=== PATIENT | male | born 1965 ===

== ENCOUNTER 2016-11-29 20:29 | Emergency (ER) | payer MEDICARE, MEDICAID | END 2016-11-30 09:14 | disposition home or self-care (01) | LOC: H.ER 20:29 | DX: F10.129 Alcohol abuse with intoxication, unspecified (principal) | CPT/HCPCS: 99281; G0480 ==

== ENCOUNTER 2016-11-30 18:38 | Observation (INO) | payer MEDICARE, MEDICAID ==
--- NOTE | 2016-11-30 18:49 | ED PDOC ---
HPI: Psych/Substance Abuse Time Seen by Provider: 11/30/16 18:47 Chief Complaint (Nursing): Alcohol Ingestion Chief Complaint (Provider): alcohol ingestion History Per: Patient (51 y/o male here with altered mentation noted today. Patient denies any etoh. ) Past Medical History Reviewed: Historical Data, Nursing Documentation, Vital Signs Vital Signs: Last Vital Signs Temp 98.7 F 11/30/16 18:40 Pulse 94 H 11/30/16 18:40 Resp 18 11/30/16 18:40 BP 138/72 11/30/16 18:40 Pulse Ox 98 11/30/16 18:40 - Medical History PMH: Bipolar Disorder, Gastritis, HTN, Seizures Denies: Diabetes, Hepatitis, HIV, Sexually Transmitted Disease - Surgical History Surgical History: Hernia Repair (b/l inguinal) - Family History Family History: States: Unknown Family Hx - Home Medications Home Medications: Ambulatory Orders Medication Instructions Recorded Amoxicillin/Potassium Clav 1 each PO BID #0 tablet 09/08/15 [Augmentin 875-125 Tablet] Calcium Carbonate/Vitamin D3 1 tab PO DAILY #0 tablet 09/08/15 [Calcium 600-Vit D3 200 Tablet] Carvedilol [Coreg] 25 mg PO Q8H #0 tab 09/08/15 Ferrous Sulfate [Ferosul] 325 mg PO DAILY #0 tablet 09/08/15 Folic Acid 2 mg PO DAILY #0 tab 09/08/15 Lisinopril [Zestril] 20 mg PO DAILY #0 tablet 09/08/15 Magnesium Oxide [Magox 400] 400 mg PO TID #0 tablet 09/08/15 Omeprazole [Prilosec] 20 mg PO DAILY #0 capsule. 09/08/15 QUEtiapine [SEROquel] 50 mg PO HS #0 tab 09/08/15 Sennosides [Senna] 1 tab PO HS #0 tablet 09/08/15 Thiamine [Vitamin B1 Tab] 100 mg PO DAILY #0 tab 09/08/15 Topiramate [Topamax] 50 mg PO BID #0 tab 09/08/15 amLODIPine [Norvasc] 5 mg PO DAILY #0 tab 09/08/15 levETIRAcetam [Keppra] 750 mg PO BID #0 tab 09/08/15 Unobtainable 08/07/16 - Allergies Allergies/Adverse Reactions: Allergies Allergy/AdvReac Type Severity Reaction Status Date / Time aspirin Allergy SHORTNESS Verified 02/02/16 01:01 OF BREATH ibuprofen [From Motrin] Allergy SHORTNESS Verified 02/02/16 01:01 OF BREATH Review of Systems ROS Statement: Except As Marked, All Systems Reviewed And Found Negative Physical Exam - Reviewed Nursing Documentation Reviewed: Yes Vital Signs Reviewed: Yes - Physical Exam Appears: Positive for: Well, Non-toxic, No Acute Distress (Appears intoxicated with slurred speech and etoh odor) Head Exam: Positive for: ATRAUMATIC, NORMAL INSPECTION, NORMOCEPHALIC Skin: Positive for: Normal Color, Warm, DRY Eye Exam: Positive for: EOMI, Normal appearance, PERRL ENT: Positive for: Normal ENT Inspection Neck: Positive for: Normal, Painless ROM Cardiovascular/Chest: Positive for: Regular Rate, Rhythm Respiratory: Positive for: CNT, Normal Breath Sounds Gastrointestinal/Abdominal: Positive for: Normal Exam, Bowel Sounds, Soft Back: Positive for: Normal Inspection Extremity: Positive for: Normal ROM Neurologic/Psych: Positive for: Alert, Oriented - ECG O2 Sat by Pulse Oximetry: 98 - Progress ED Course And Treament: Head CT: right frontal scalp hematoma noted; no intracranial abnormality ED OBSERVATION Date of observation admission: 11/30/16 Time of observation admission: 18:51 - Observation admission statement Patient is being placed in observation because:: Patient noted to have altered mentation. We will evaluate and observe for possible alcohol intoxication. - Goals of Observation Goals of observation are:: To evaluate cause of altered mentation. To manage and observe until clinical sobriety - Progress Note Progress Note: 11/30/16 18:52 Patient verbal and alert to self but not answering questions appropriately. Denies any alcohol intake initially. Easily agitated by simple questions. 11/30/16 21:49 11/30/2016 21:49 Patient progressively more alert. Noted to have swelling and deformity left hand and wrist. States he has had injury 7 days ago and believes he has fx. Physical exam: (+) ecchymosis along index of left hand and thumb with swelling; deformity noted radial aspect of distal wrist with incision noted old. 11/30/16 23:12 xry of hand:IMPRESSION: Osteopenia and degenerative change; old distal radial, ulnar and fifth metacarpal fractures, no acute fracture Thank you for allowing us to participate in the care of your patient. Dictated and Authenticated by: Marianne Art MD 11/30/2016 10:56 PM Eastern Time ([place] & [place]) xry of wrist: IMPRESSION: Osteopenia degenerative change; old fractures distal left radius, distal left ulna and fifth metacarpal, with sideplate and screw in the distal ulna Comparison with prior films suggested for more complete evaluation Thank you for allowing us to participate in the care of your patient. Dictated and Authenticated by: Marianne Art MD 11/30/2016 10:54 PM Eastern Time ([place] & [place]) Acetaminophen 975mg x dose for pain. Disposition - Clinical Impression Clinical Impression: Alcohol ingestion, Head injury, Hand contusion - Patient ED Disposition Is Patient to be Admitted: No - Disposition Disposition: Routine/Home Disposition Time: 23:16 Condition: FAIR
[2016-11-30 18:57] VITALS: BP 138/72; PULSE 94; RESP 18; TEMP 98.7; O2SAT 98
--- NOTE | 2016-11-30 21:00 | CT ---
EXAM: CT Head Without Intravenous Contrast CLINICAL HISTORY: 51 years old, male; Injury or trauma; Fall; Initial encounter; Concussion / head injury; Consciousness not specified; Additional info: Head injury/ ETOH TECHNIQUE: Axial computed tomography images of the head/brain without intravenous contrast. This CT exam was performed using one or more of the following dose reduction techniques: automated exposure control, adjustment of the mA and/or kV according to patient size, and/or use of iterative reconstruction technique. Coronal and sagittal reformatted images were created and reviewed. EXAM DATE/TIME: 11/30/2016 7:18 PM COMPARISON: CT - HEAD W/O CONTRAST 09/10/2015 1:03:51 AM FINDINGS: Brain: There is dilatation of sulci gyri and ventricles. There is no midline shift. There is decreased attenuation in periventricular white matter. There is right frontal encephalomalacia, unchanged. There is a small subacute right frontal subdural hygroma, unchanged. There are no focal masses. There are no acute hemorrhages. Lorenzo-white differentiation is visualized. Ventricles: See above Bones: Cranial vault is intact. Soft tissues: There is right frontal and parietal scalp swelling. Sinuses: There is no acute sinusitis. Ears and mastoids: Middle ears and mastoids are unremarkable. Orbits: Orbital contents are unremarkable. IMPRESSION: No acute intracranial abnormality, no acute intracranial hemorrhage; right frontal scalp hematoma
--- NOTE | 2016-11-30 22:54 | RAD ---
EXAM: XR Left Wrist Complete, 3 or More Views CLINICAL HISTORY: 51 years old, male; Injury or trauma; Fall; Initial encounter; Blunt trauma (contusions or hematomas; Wrist; Left; Prior surgery; Surgery date: 6+ months; Surgery type: Fracture repair; Additional info: Wrist injury TECHNIQUE: Frontal, lateral and oblique views of the left wrist. EXAM DATE/TIME: 11/30/2016 9:48 PM COMPARISON: There are no prior studies for comparison. FINDINGS: Bones/joints: Bony structures are diffusely osteopenic. There is an old healed fracture of the fifth metacarpal with residual posttraumatic deformity. There is an old distal left ulnar fracture with sideplate and screws. There is an old healed distal radial diaphyseal fracture. There is periosteal reaction in the distal radius and normal. There is narrowing of the radiocarpal joint space. No acute fractures are visualized. Soft tissues: There is soft tissue swelling in the distal left forearm IMPRESSION: Osteopenia degenerative change; old fractures distal left radius, distal left ulna and fifth metacarpal, with sideplate and screw in the distal ulna Comparison with prior films suggested for more complete evaluation
--- NOTE | 2016-11-30 22:57 | RAD ---
EXAM: XR Left Hand Complete, 3 or More Views CLINICAL HISTORY: 51 years old, male; Injury or trauma; Fall; Initial encounter; Blunt trauma (contusions or hematomas; Hand; Left; Additional info: Hand injury TECHNIQUE: Frontal, lateral and oblique views of the left hand. EXAM DATE/TIME: 11/30/2016 9:47 PM COMPARISON: There are no prior studies for comparison. FINDINGS: Bones/joints: Bony structures are diffusely osteopenic. There are old fractures of the distal left radius and ulna. There is a plate and screws in the distal ulna. There is narrowing of the radiocarpal joint space. There is an old healed fracture of the fifth metacarpal. No acute fractures are visualized. There is narrowing of the interphalangeal joints. Soft tissues: see above IMPRESSION: Osteopenia and degenerative change; old distal radial, ulnar and fifth metacarpal fractures, no acute fracture
== END 2016-11-30 23:16 | disposition home or self-care (01) ==
LOC: H.ER 18:38 → H.EROBSV 18:50
PROVIDERS: ADMIT Emergency Medicine; ATTEND Emergency Medicine
DX: F10.129 Alcohol abuse with intoxication, unspecified (principal); Y90.8 Blood alcohol level of 240 mg/100 ml or more; F31.9 Bipolar disorder, unspecified; I10 Essential (primary) hypertension; K29.70 Gastritis, unspecified, without bleeding; R56.9 Unspecified convulsions; S60.212A Contusion of left wrist, initial encounter; M85.89 Other specified disorders of bone density and structure, multiple sites; X58.XXXA Exposure to other specified factors, initial encounter; Z88.6 Allergy status to analgesic agent; Y93.9 Activity, unspecified
CPT/HCPCS: 36415; 70450; 73110; 73130; 82948; 99283; G0378; G0480

== ENCOUNTER 2016-12-14 16:36 | Emergency (ER) | payer MEDICARE, MEDICAID ==
[2016-12-14 16:40] VITALS: BP 116/70; RESP 19; TEMP 98.1; O2SAT 95
[2016-12-14 17:12] VITALS: PULSE 101
--- NOTE | 2016-12-14 20:47 | ED PDOC ---
HPI: Psych/Substance Abuse Time Seen by Provider: 12/14/16 17:13 Chief Complaint (Nursing): Seizure Chief Complaint (Provider): intoxication Additional Complaint(s): 51yo M in ed For eval of intoxication nought to ED by EMS-slurred speech and unstable gait. Past Medical History Reviewed: Historical Data, Nursing Documentation, Vital Signs Vital Signs: Last Vital Signs Temp 98.1 F 12/14/16 16:36 Pulse 101 H 12/14/16 17:12 Resp 19 12/14/16 16:36 BP 116/70 12/14/16 16:36 Pulse Ox 95 12/14/16 16:36 - Medical History PMH: Bipolar Disorder, Gastritis, HTN, Seizures Denies: Diabetes, Hepatitis, HIV, Chronic Kidney Disease, Sexually Transmitted Disease - Surgical History Surgical History: Hernia Repair (b/l inguinal) - Family History Family History: States: Unknown Family Hx - Home Medications Home Medications: Ambulatory Orders Medication Instructions Recorded Amoxicillin/Potassium Clav 1 each PO BID #0 tablet 09/08/15 [Augmentin 875-125 Tablet] Calcium Carbonate/Vitamin D3 1 tab PO DAILY #0 tablet 09/08/15 [Calcium 600-Vit D3 200 Tablet] Carvedilol [Coreg] 25 mg PO Q8H #0 tab 09/08/15 Ferrous Sulfate [Ferosul] 325 mg PO DAILY #0 tablet 09/08/15 Folic Acid 2 mg PO DAILY #0 tab 09/08/15 Lisinopril [Zestril] 20 mg PO DAILY #0 tablet 09/08/15 Magnesium Oxide [Magox 400] 400 mg PO TID #0 tablet 09/08/15 Omeprazole [Prilosec] 20 mg PO DAILY #0 capsule. 09/08/15 QUEtiapine [SEROquel] 50 mg PO HS #0 tab 09/08/15 Sennosides [Senna] 1 tab PO HS #0 tablet 09/08/15 Thiamine [Vitamin B1 Tab] 100 mg PO DAILY #0 tab 09/08/15 Topiramate [Topamax] 50 mg PO BID #0 tab 09/08/15 amLODIPine [Norvasc] 5 mg PO DAILY #0 tab 09/08/15 levETIRAcetam [Keppra] 750 mg PO BID #0 tab 09/08/15 Unobtainable 08/07/16 - Allergies Allergies/Adverse Reactions: Allergies Allergy/AdvReac Type Severity Reaction Status Date / Time aspirin Allergy SHORTNESS Verified 02/02/16 01:01 OF BREATH ibuprofen [From Motrin] Allergy SHORTNESS Verified 02/02/16 01:01 OF BREATH Review of Systems ROS Statement: Except As Marked, All Systems Reviewed And Found Negative Constitutional: Negative for: Fever Physical Exam - Reviewed Nursing Documentation Reviewed: Yes Vital Signs Reviewed: Yes - Physical Exam Appears: Positive for: Well, Non-toxic, No Acute Distress Skin: Positive for: Normal Color, Warm, DRY Cardiovascular/Chest: Positive for: Regular Rate, Rhythm Respiratory: Positive for: CNT, Normal Breath Sounds Neurologic/Psych: Positive for: Alert, Oriented, Gait (unstable, slurred speech. ) - ECG O2 Sat by Pulse Oximetry: 95 - Progress ED Course And Treament: Pt in ED until clinically sober and d/c took taxi home. Medical Decision Making Medical Decision Making: stable for d/c Disposition - Clinical Impression Clinical Impression: Alcohol abuse - Patient ED Disposition Is Patient to be Admitted: No Counseled Patient/Family Regarding: Need For Followup - Disposition Disposition: Routine/Home Disposition Time: 20:51 Condition: STABLE
--- NOTE | 2016-12-15 23:38 | CARD ---
APPROVED REPORT EKG Measurement Heart [id number] <Conclusion> Sinus tachycardia Otherwise normal ECG
== END 2016-12-14 20:57 | disposition home or self-care (01) ==
LOC: H.ER 16:36
DX: F10.10 Alcohol abuse, uncomplicated (principal); F31.9 Bipolar disorder, unspecified; I10 Essential (primary) hypertension
CPT/HCPCS: 82948; 93005; 99283; G0480

== ENCOUNTER 2016-12-25 15:49 | Observation (INO) | payer MEDICARE, MEDICAID ==
--- NOTE | 2016-12-25 16:33 | ED PDOC ---
HPI: Psych/Substance Abuse Time Seen by Provider: 12/25/16 15:52 Chief Complaint (Nursing): Alcohol Ingestion Chief Complaint (Provider): Intoxication History Per: Patient History/Exam Limitations: intoxication Additional Complaint(s): Angel Sol is a 51 y/o male presenting to the ER on 12/25/2016 with possible alcohol intoxication. History is limited due to patient's likely state of intoxication. Patient reports he was drinking alcohol yesterday but not today. He states he is unsure if he suffered a seizure after drinking. Patient was able to ambulate to the ED for evaluation. ROS is unobtainable due to inability to answer questions. Past Medical History Reviewed: Historical Data, Nursing Documentation, Vital Signs Vital Signs: Last Vital Signs Temp 98.0 F 12/25/16 15:52 Pulse 111 H 12/25/16 15:52 Resp 16 12/25/16 15:52 BP 135/91 H 12/25/16 15:52 Pulse Ox 100 12/25/16 15:52 - Medical History PMH: Bipolar Disorder, Gastritis, HTN, Seizures Denies: Diabetes, Hepatitis, HIV, Chronic Kidney Disease, Sexually Transmitted Disease - Surgical History Surgical History: Hernia Repair (b/l inguinal) - Family History Family History: States: Unknown Family Hx - Social History Current smoker - smoking cessation education provided: No Alcohol: Occasional Drugs: Denies - Home Medications Home Medications: Ambulatory Orders Medication Instructions Recorded Amoxicillin/Potassium Clav 1 each PO BID #0 tablet 09/08/15 [Augmentin 875-125 Tablet] Calcium Carbonate/Vitamin D3 1 tab PO DAILY #0 tablet 09/08/15 [Calcium 600-Vit D3 200 Tablet] Carvedilol [Coreg] 25 mg PO Q8H #0 tab 09/08/15 Ferrous Sulfate [Ferosul] 325 mg PO DAILY #0 tablet 09/08/15 Folic Acid 2 mg PO DAILY #0 tab 09/08/15 Lisinopril [Zestril] 20 mg PO DAILY #0 tablet 09/08/15 Magnesium Oxide [Magox 400] 400 mg PO TID #0 tablet 09/08/15 Omeprazole [Prilosec] 20 mg PO DAILY #0 capsule. 09/08/15 QUEtiapine [SEROquel] 50 mg PO HS #0 tab 09/08/15 Sennosides [Senna] 1 tab PO HS #0 tablet 09/08/15 Thiamine [Vitamin B1 Tab] 100 mg PO DAILY #0 tab 09/08/15 Topiramate [Topamax] 50 mg PO BID #0 tab 09/08/15 amLODIPine [Norvasc] 5 mg PO DAILY #0 tab 09/08/15 levETIRAcetam [Keppra] 750 mg PO BID #0 tab 09/08/15 Unobtainable 08/07/16 - Allergies Allergies/Adverse Reactions: Allergies Allergy/AdvReac Type Severity Reaction Status Date / Time aspirin Allergy SHORTNESS Verified 02/02/16 01:01 OF BREATH ibuprofen [From Motrin] Allergy SHORTNESS Verified 02/02/16 01:01 OF BREATH Review of Systems Review Of Systems: ROS cannot be obtained secondary to pt's inabilty to answer questions. Physical Exam - Reviewed Nursing Documentation Reviewed: Yes Vital Signs Reviewed: Yes - Physical Exam Appears: Positive for: No Acute Distress (no gross trauma ). Negative for: Non- toxic (patient appears to have alcohol on his breath. poor hygeine noted.) Head Exam: Positive for: ATRAUMATIC, NORMOCEPHALIC Skin: Positive for: Normal Color. Negative for: Rash Eye Exam: Positive for: Normal appearance Neck: Positive for: Normal, Painless ROM, Supple Cardiovascular/Chest: Positive for: Regular Rate, Rhythm. Negative for: Murmur Respiratory: Positive for: Normal Breath Sounds. Negative for: Respiratory Distress Gastrointestinal/Abdominal: Positive for: Normal Exam, Soft. Negative for: Tenderness Extremity: Positive for: Normal ROM. Negative for: Deformity, Swelling Neurologic/Psych: Positive for: Alert, Oriented, Other (no tremors ). Negative for: Motor/Sensory Deficits - Laboratory Results Result Diagrams: 12/25/16 16:45 - ECG O2 Sat by Pulse Oximetry: 100 Medical Decision Making Medical Decision Makin:52 Initial Impression- Alcohol Intoxication Initial Plan- * Alcohol Serum * Beside Glucose check * BMP Documented by Kennedy Tovar, acting as a scribe for Bo Herrera, DO All medical record entries made by the Scribe were at my direction and personally dictated by me. I have reviewed the chart and agree that the record accurately reflects my personal performance of the history, physical exam, medical decision making, and the department course for this patient. I have also personally directed, reviewed, and agree with the discharge instructions and disposition. ED OBSERVATION Date of observation admission: 12/25/16 Time of observation admission: 18:47 - Observation admission statement Patient is being placed in observation because:: patient is clinically intoxicated - Goals of Observation Goals of observation are:: Clinical sobriety - Progress Note Progress Note: 12/25/16 20:07 Patient is sleeping. Vitals are stable. 12/25/16 20:52 Patient is awake, alert, and requesting food at the ED front office attendant. Vitals and condition are stable for discharge from observation. Disposition - Clinical Impression Clinical Impression: Alcohol abuse with alcohol-induced disorder - Patient ED Disposition Is Patient to be Admitted: No Counseled Patient/Family Regarding: Studies Performed, Diagnosis, Need For Followup - Disposition Disposition: Routine/Home Disposition Time: 18:47 Condition: STABLE
[2016-12-25 17:59] LABS: BLOOD UREA NITROGEN 14 mg/dl (9-20); CALCIUM 7.7 mg/dL (8.4-10.2); GFR AFRICAN-AMERICAN > 60; GFR NON-AFRICAN AMERICAN > 60
[2016-12-25 19:19] VITALS: BP 133/85; PULSE 84; RESP 18; TEMP 97.2
[2016-12-25 20:08] VITALS: O2SAT 100
== END 2016-12-25 20:53 | disposition home or self-care (01) ==
LOC: H.ER 15:49 → H.EROBSV 18:47
PROVIDERS: ADMIT Emergency Medicine; ATTEND Emergency Medicine
DX: F10.129 Alcohol abuse with intoxication, unspecified (principal); Y90.8 Blood alcohol level of 240 mg/100 ml or more; F31.9 Bipolar disorder, unspecified; I10 Essential (primary) hypertension; K29.70 Gastritis, unspecified, without bleeding; R56.9 Unspecified convulsions; Z79.899 Other long term (current) drug therapy
CPT/HCPCS: 80048; 82948; 99283; G0378; G0480

== ENCOUNTER 2016-12-28 15:40 | Observation (INO) | payer MEDICARE, MEDICAID ==
[2016-12-28 15:47] VITALS: TEMP 98
[2016-12-28] MEDS ORDERED: Sodium Chloride 0.9% 1,000 ML IV STA (15:58)
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
[2016-12-28 16:28] LABS: BASO # 0.1 K/uL (0.0-0.2); BASO % 2.1 % (0.0-2.0); EOS # 0.2 K/uL (0.0-0.7); EOS % 3.8 % (0.0-4.0); HEMATOCRIT 32.7 % (35.0-51.0); LYMPH # 1.7 K/uL (1.0-4.3); LYMPH % 25.9 % (20.0-40.0); MEAN CELL VOLUME 101.2 fl (80.0-94.0); MEAN CORPUSCULAR HGB CONC 32.6 g/dL (33.0-37.0); MEAN PLATELET VOLUME 11.2 fl (7.2-11.7); MONO # 1.5 K/uL (0.0-0.8); MONO % 23.6 % (0.0-10.0); NEUT # 2.9 K/uL (1.8-7.0); NEUT % 44.6 % (50.0-75.0); NRBC % 0.4 % (0.0-0.0); PLATELET COUNT 114 K/uL (130-400); RED CELL DISTRIBUTION WIDTH 15.3 % (11.5-14.5); WHITE BLOOD COUNT 6.5 K/uL (4.8-10.8)
[2016-12-28 17:01] LABS: ALKALINE PHOSPHATASE 220 U/L (38-126); ALT/SGPT 53 U/L (21-72); AST/SGOT 223 U/L (17-59); BILIRUBIN,TOTAL 1.4 mg/dl (0.2-1.3); BLOOD UREA NITROGEN 15 mg/dl (9-20); CARBON DIOXIDE 20 mmol/L (22-30); CHLORIDE 109 mmol/L (98-107); GFR AFRICAN-AMERICAN > 60; POTASSIUM 4.5 MMOL/L (3.6-5.0); SODIUM 143 mmol/l (132-148)
[2016-12-28 17:06] LABS: BASOPHIL 2 % (0-2); EOSINOPHIL 4 % (0-7); NEUTROPHIL 49 % (42-75); TOTAL CELLS COUNTED 100
[2016-12-28 17:09] LABS: LARGE PLATELETS PRESENT
[2016-12-28 17:30] LABS: ALCOHOL SERUM 339 mg/dl (0-10)
[2016-12-28 17:38] LABS: ALB/GLOB RATIO 0.8 (1.0-2.1); GLUCOSE,RANDOM 91 mg/dL (75-110); TOTAL PROTEIN 7.7 G/DL (6.3-8.2)
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
[2016-12-28 20:57] VITALS: BP 148/88; PULSE 89; RESP 18
[2016-12-28 21:11] VITALS: O2SAT 93
--- NOTE | 2016-12-31 18:37 | CARD ---
APPROVED REPORT EKG Measurement Heart [id number] <Conclusion> Normal sinus rhythm Prolonged QT Abnormal ECG
== END 2016-12-28 20:38 | disposition home or self-care (01) ==
LOC: H.ER 15:40 → H.EROBSV 18:09
PROVIDERS: ADMIT Emergency Medicine; ATTEND Emergency Medicine
DX: G40.909 Epilepsy, unspecified, not intractable, without status epilepticus (principal); F10.129 Alcohol abuse with intoxication, unspecified; Y90.8 Blood alcohol level of 240 mg/100 ml or more; S05.12XA Contusion of eyeball and orbital tissues, left eye, initial encounter; F31.9 Bipolar disorder, unspecified; I10 Essential (primary) hypertension; K29.70 Gastritis, unspecified, without bleeding; F17.200 Nicotine dependence, unspecified, uncomplicated; Z88.6 Allergy status to analgesic agent; Y04.2XXA Assault by strike against or bumped into by another person, initial encounter; Y92.480 Sidewalk as the place of occurrence of the external cause
CPT/HCPCS: 70450; 70486; 80053; 80184; 80299; 85025; 96360; 99285; G0378; G0480; J7040

== ENCOUNTER 2017-01-11 17:57 | Emergency (ER) | payer MEDICARE, MEDICAID ==
[2017-01-11 18:41] LABS: BASO # 0.3 K/uL (0.0-0.2); BASO % 4.4 % (0.0-2.0); EOS # 0.1 K/uL (0.0-0.7); EOS % 2.2 % (0.0-4.0); LYMPH # 1.6 K/uL (1.0-4.3); LYMPH % 22.7 % (20.0-40.0); MEAN CELL VOLUME 102.7 fl (80.0-94.0); MEAN CORPUSCULAR HEMOGLOBIN 33.5 pg (27.0-31.0); MEAN CORPUSCULAR HGB CONC 32.6 g/dL (33.0-37.0); MEAN PLATELET VOLUME 10.3 fl (7.2-11.7); MONO # 1.9 K/uL (0.0-0.8); MONO % 28.4 % (0.0-10.0); NEUT # 2.9 K/uL (1.8-7.0); NEUT % 42.3 % (50.0-75.0); NRBC % 0.1 % (0.0-0.0); PLATELET COUNT 208 K/uL (130-400); RBC 2.98 Mil/uL (4.40-5.90); RED CELL DISTRIBUTION WIDTH 15.9 % (11.5-14.5); WHITE BLOOD COUNT 6.9 K/uL (4.8-10.8)
[2017-01-11 18:51] LABS: ALB/GLOB RATIO 0.8 (1.0-2.1); ALBUMIN 3.5 g/dL (3.5-5.0); ALT/SGPT 49 U/L (21-72); AST/SGOT 109 U/L (17-59); BLOOD UREA NITROGEN 21 mg/dl (9-20); GFR AFRICAN-AMERICAN > 60; GFR NON-AFRICAN AMERICAN > 60
--- NOTE | 2017-01-11 18:56 | ED PDOC ---
HPI: General Adult Time Seen by Provider: 01/11/17 18:02 Chief Complaint (Nursing): Seizure Chief Complaint (Provider): Seizure History Per: Patient History/Exam Limitations: no limitations Onset/Duration Of Symptoms: Hrs Have you had recent travel within the past 21 days to any of the following countries: [place], [place], [place] or [place]?: No Additional Complaint(s): The patient is a 51yo male, past medical history of seizures, presents to the ED for evaluation s/p having an "epileptic seizure" at home. Patient states the seizure was unwitnessed and that he "woke up rolling on the floor". He denies falls, head injury, urinary incontinence. He also denies drinking alcohol today. Patient states he takes Keppra and Phenobarbitol for his symptoms but has not taken the phenobarbitol for the past 5 days because he ran out of his medications. He denies any other medical complains. PCP: Dr. Jose Cruz Vila Past Medical History Reviewed: Historical Data, Nursing Documentation, Vital Signs Vital Signs: Last Vital Signs Temp 98.1 F 01/11/17 20:42 Pulse 96 H 01/11/17 20:42 Resp 18 01/11/17 20:42 BP 146/90 01/11/17 20:42 Pulse Ox 95 01/12/17 05:28 - Medical History PMH: Bipolar Disorder, Gastritis, HTN, Seizures Denies: Diabetes, Hepatitis, HIV, Chronic Kidney Disease, Sexually Transmitted Disease - Surgical History Surgical History: Hernia Repair (b/l inguinal) - Family History Family History: States: Unknown Family Hx - Home Medications Home Medications: Ambulatory Orders Medication Instructions Recorded Amoxicillin/Potassium Clav 1 each PO BID #0 tablet 09/08/15 [Augmentin 875-125 Tablet] Calcium Carbonate/Vitamin D3 1 tab PO DAILY #0 tablet 09/08/15 [Calcium 600-Vit D3 200 Tablet] Carvedilol [Coreg] 25 mg PO Q8H #0 tab 09/08/15 Ferrous Sulfate [Ferosul] 325 mg PO DAILY #0 tablet 09/08/15 Folic Acid 2 mg PO DAILY #0 tab 09/08/15 Lisinopril [Zestril] 20 mg PO DAILY #0 tablet 09/08/15 Magnesium Oxide [Magox 400] 400 mg PO TID #0 tablet 04/09/16 Omeprazole [Prilosec] 20 mg PO DAILY #0 capsule. 09/08/15 QUEtiapine [SEROquel] 50 mg PO HS #0 tab 09/08/15 Sennosides [Senna] 1 tab PO HS #0 tablet 09/08/15 Thiamine [Vitamin B1 Tab] 100 mg PO DAILY #0 tab 09/08/15 Topiramate [Topamax] 50 mg PO BID #0 tab 09/08/15 amLODIPine [Norvasc] 5 mg PO DAILY #0 tab 09/08/15 levETIRAcetam [Keppra] 750 mg PO BID #0 tab 09/08/15 Unobtainable 08/07/16 - Allergies Allergies/Adverse Reactions: Allergies Allergy/AdvReac Type Severity Reaction Status Date / Time aspirin Allergy SHORTNESS Verified 02/02/16 01:01 OF BREATH ibuprofen [From Motrin] Allergy SHORTNESS Verified 02/02/16 01:01 OF BREATH Review of Systems ROS Statement: Except As Marked, All Systems Reviewed And Found Negative Genitourinary Male: Negative for: Incontinence Neurological: Positive for: Seizures Physical Exam - Reviewed Nursing Documentation Reviewed: Yes Vital Signs Reviewed: Yes - Physical Exam Appears: Positive for: Non-toxic Head Exam: Positive for: ATRAUMATIC, NORMAL INSPECTION, NORMOCEPHALIC Skin: Positive for: Normal Color Eye Exam: Positive for: Normal appearance Neck: Positive for: Normal, Supple Cardiovascular/Chest: Positive for: Regular Rate, Rhythm Respiratory: Positive for: Normal Breath Sounds. Negative for: Respiratory Distress Neurologic/Psych: Positive for: Alert, Oriented. Negative for: Motor/Sensory Deficits - Laboratory Results Result Diagrams: 01/11/17 18:37 01/11/17 18:37 - ECG O2 Sat by Pulse Oximetry: 95 Medical Decision Making Medical Decision Making: Time: 1814 Impression: Seizure, patient has hx of epileptic seizures Plan: -- Labs -- EKG Reassess Scribe Attestation: Documented by Lizzette Bullock acting as a scribe for Francesca Frausto MD. Provider Attestation: All medical record entries made by the Scribe were at my direction and personally dictated by me. I have reviewed the chart and agree that the record accurately reflects my personal performance of the history, physical exam, medical decision making, and the department course for this patient. I have also personally directed, reviewed, and agree with the discharge instructions and disposition. Disposition - Clinical Impression Clinical Impression: Alcohol intoxication - Patient ED Disposition Is Patient to be Admitted: Transfer of Care - Disposition Referrals: [facility] [Outside] [facility] [Outside] Disposition: Transfer of Care Disposition Time: 19:00 Condition: IMPROVED Additional Instructions: follow up with your primary doctor in 1-2 days return to the ED with any worsening or concerning symptoms. Instructions: Alcohol Intoxication (ED), Anemia (ED) Forms: [employer] (Citizen Of [place]) Patient Signed Over To: Noy Fofana Handoff Comments: pending labs
--- NOTE | 2017-01-11 19:17 | ED PDOC ---
- Laboratory Results Result Diagrams: 01/11/17 18:37 01/11/17 18:37 - ECG O2 Sat by Pulse Oximetry: 95 Medical Decision Making Medical Decision Making: Receiving sign out: Patient signed out to me by Dr. Frausto at 1900 pending labs, re-evaluation. Scribe Attestation: Documented by Lizzette Bullock acting as a scribe for Noy Fofana MD. Provider Attestation: All medical record entries made by the Scribe were at my direction and personally dictated by me. I have reviewed the chart and agree that the record accurately reflects my personal performance of the history, physical exam, medical decision making, and the department course for this patient. I have also personally directed, reviewed, and agree with the discharge instructions and disposition. Disposition Counseled Patient/Family Regarding: Studies Performed, Diagnosis, Need For Followup - Clinical Impression Clinical Impression: Alcohol intoxication - POA Present On Arrival: None - Disposition Referrals: [facility] [Outside] [facility] [Outside] Disposition: Routine/Home Disposition Time: 20:00 Condition: IMPROVED Additional Instructions: follow up with your primary doctor in 1-2 days return to the ED with any worsening or concerning symptoms. Instructions: Alcohol Intoxication (ED), Anemia (ED) Forms: [employer] (Maldivian) Progress Note - Review of Symptoms Events since last encounter: Time: 2029 Patients lab results so no acute abnormalities; slight anemia noted and patient informed of such results. Instructed to follow up with PCP for further care. Patient is awake, alert and oriented x3 with steady gait; stable for discharge home.
[2017-01-11 19:44] LABS: BASOPHIL 5 % (0-2); EOSINOPHIL 3 % (0-7); LYMPHOCYTE 25 % (20-50); MONOCYTE 23 % (0-10); NEUTROPHIL 44 % (42-75); PLATELET ESTIMATE NORMAL (NORMAL); TOTAL CELLS COUNTED 100
[2017-01-11 19:45] LABS: ANISOCYTOSIS SLIGHT; POIKILOCYTOSIS SLIGHT
[2017-01-11 19:46] LABS: LARGE PLATELETS PRESENT
[2017-01-11 20:43] VITALS: BP 146/90; PULSE 96; RESP 18; TEMP 98.1
--- NOTE | 2017-01-11 21:47 | CARD ---
APPROVED REPORT EKG Measurement Heart [id number] <Conclusion> Normal sinus rhythm Normal ECG
[2017-01-12 05:27] VITALS: O2SAT 95
[2017-01-15 04:52] LABS: LEVETIRACETAM 1.8 mcg/mL
== END 2017-01-11 20:48 | disposition home or self-care (01) ==
LOC: H.ER 17:57
DX: F10.129 Alcohol abuse with intoxication, unspecified (principal); Y90.8 Blood alcohol level of 240 mg/100 ml or more; R56.9 Unspecified convulsions; I10 Essential (primary) hypertension
CPT/HCPCS: 80053; 80184; 80299; 82948; 85025; 93005; 99285; G0480

== ENCOUNTER 2017-02-03 22:28 | Emergency (ER) | payer MEDICARE, MEDICAID ==
--- NOTE | 2017-02-03 22:58 | ED PDOC ---
HPI: Seizure Time Seen by Provider: 02/03/17 22:50 Chief Complaint (Nursing): Seizure Chief Complaint (Provider): I had a seizire History Per: Patient, EMS History/Exam Limitations: no limitations Number Of Seizures: One Length Of Seizures (Duration): Unknown Quality Of Seizure: Generalized Associated Symptoms: denies: Injury As A Result Of Seizure Activity Additional Complaint(s): 51yo male hx epilepsy, also etoh abuse although denies drinking recently, states had seizure at [address], unknown duration. States takes keppra 1000mg BID but missed last several days. Denies chest, neck, shoulder, abdominal or back pain. Past Medical History Reviewed: Historical Data, Nursing Documentation, Vital Signs Vital Signs: Last Vital Signs Temp 98.5 F 02/03/17 22:30 Pulse 100 H 02/03/17 22:30 Resp 18 02/03/17 22:30 BP 107/67 02/03/17 22:30 Pulse Ox 100 02/03/17 23:00 - Medical History PMH: Bipolar Disorder, Gastritis, HTN, Seizures Denies: Diabetes, Hepatitis, HIV, Chronic Kidney Disease, Sexually Transmitted Disease - Surgical History Surgical History: Hernia Repair (b/l inguinal) - Family History Family History: States: Unknown Family Hx - Living Arrangements Living Arrangements: Other - Social History Alcohol: Occasional Drugs: Denies - Home Medications Home Medications: Ambulatory Orders Medication Instructions Recorded Amoxicillin/Potassium Clav 1 each PO BID #0 tablet 09/08/15 [Augmentin 875-125 Tablet] Calcium Carbonate/Vitamin D3 1 tab PO DAILY #0 tablet 09/08/15 [Calcium 600-Vit D3 200 Tablet] Carvedilol [Coreg] 25 mg PO Q8H #0 tab 09/08/15 Ferrous Sulfate [Ferosul] 325 mg PO DAILY #0 tablet 09/08/15 Folic Acid 2 mg PO DAILY #0 tab 09/08/15 Lisinopril [Zestril] 20 mg PO DAILY #0 tablet 09/08/15 Magnesium Oxide [Magox 400] 400 mg PO TID #0 tablet 09/08/15 Omeprazole [Prilosec] 20 mg PO DAILY #0 capsule. 09/08/15 QUEtiapine [SEROquel] 50 mg PO HS #0 tab 09/08/15 Sennosides [Senna] 1 tab PO HS #0 tablet 09/08/15 Thiamine [Vitamin B1 Tab] 100 mg PO DAILY #0 tab 09/08/15 Topiramate [Topamax] 50 mg PO BID #0 tab 09/08/15 amLODIPine [Norvasc] 5 mg PO DAILY #0 tab 09/08/15 levETIRAcetam [Keppra] 750 mg PO BID #0 tab 09/08/15 Unobtainable 08/07/16 - Allergies Allergies/Adverse Reactions: Allergies Allergy/AdvReac Type Severity Reaction Status Date / Time aspirin Allergy SHORTNESS Verified 02/02/16 01:01 OF BREATH ibuprofen [From Motrin] Allergy SHORTNESS Verified 02/02/16 01:01 OF BREATH Review of Systems ROS Statement: Except As Marked, All Systems Reviewed And Found Negative Constitutional: Negative for: Fever, Chills Cardiovascular: Negative for: Chest Pain, Palpitations Gastrointestinal: Negative for: Nausea, Abdominal Pain Genitourinary Male: Negative for: Dysuria, Frequency Neurological: Positive for: Seizures, Headache, Dizziness. Negative for: Weakness, Numbness Psych: Positive for: Anxiety. Negative for: Suicidal ideation Physical Exam - Reviewed Nursing Documentation Reviewed: Yes Vital Signs Reviewed: Yes - Physical Exam Appears: Positive for: Non-toxic (poor hygiene), No Acute Distress Head Exam: Positive for: ATRAUMATIC, NORMAL INSPECTION, NORMOCEPHALIC Skin: Positive for: Normal Color, Warm, DRY Eye Exam: Positive for: EOMI, Normal appearance, PERRL ENT: Positive for: Normal ENT Inspection, Other (small dried blood at lip) Neck: Positive for: Normal, Painless ROM Cardiovascular/Chest: Positive for: Regular Rate, Rhythm Respiratory: Positive for: CNT, Normal Breath Sounds Gastrointestinal/Abdominal: Positive for: Bowel Sounds, Soft. 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 Negative for: Motor/Sensory Deficits - ECG O2 Sat by Pulse Oximetry: 100 - CT Scan/US CT brain Other Rad Studies (CT/US): Radiology Report Reviewed Other Rad Interpretation: neg for bleed/ fx Medical Decision Making Medical Decision Making: workup for seizure initiated. Will give dose keppra as states hasnt taken in several days. CT brain, labs ordered. Disposition - Clinical Impression Clinical Impression: Generalized seizure - Patient ED Disposition Is Patient to be Admitted: Transfer of Care - Disposition Disposition: Transfer of Care Disposition Time: 00:30 Condition: STABLE Forms: [employer] (Kyrgyz) Patient Signed Over To: José Miguel Mccoy Handoff Comments: pending CT imaging, labs, re-eval
--- NOTE | 2017-02-03 23:59 | CT ---
EXAM: CT Head Without Intravenous Contrast EXAM DATE/TIME: 02/03/2017 10:50 PM CLINICAL HISTORY: 51 years old, male; Signs and symptoms; Other: Poss seizure/ ETOH; Additional info: R/O ich TECHNIQUE: Axial computed tomography images of the head/brain without intravenous contrast. All CT scans at this facility use one or more dose reduction techniques, viz.: automated exposure control; ma/kV adjustment per patient size (including targeted exams where dose is matched to indication; i.e. head); or iterative reconstruction technique. Coronal and sagittal reformatted images were created and reviewed. COMPARISON: Prior head CT of 12/28/2016 FINDINGS: LIMITATIONS: Mild to moderate streak/motion artifact. BRAIN: Focal encephalomalacia in the right frontal lobe. This could be related to a chronic infarct or remote traumatic injury. Areas of hypodensity seen in the white matter bilaterally, nonspecific in appearance, but most likely representing chronic small vessel ischemic chages, in a patient of this age. No significant acute abnormality identified. Diffuse, age-related cortical atrophy and ventriculomegaly. No acute hemorrhage seen within the brain. No acute extra-axial fluid collections visualized. No evidence of significant mass effect within the brain. VENTRICLES: No evidence of significant hydrocephalus. BONES/JOINTS: No acute fractures or other acute bony abnormality noted. SOFT TISSUES: No acute abnormality of the visualized soft tissues is seen. SINUSES: Visualized paranasal sinuses appear clear. MASTOID AIR CELLS: Mastoid air cells appear clear. IMPRESSION: - No acute findings seen within the brain. - See above for remaining findings.
--- NOTE | 2017-02-04 01:02 | ED PDOC ---
- Laboratory Results Result Diagrams: 02/04/17 02:15 02/04/17 02:15 - ECG O2 Sat by Pulse Oximetry: 100 (RA) Pulse Ox Interpretation: Normal Medical Decision Making Medical Decision Making: Receiving Sign Out: Pt signed out to me by Dr. Herrera pending CT report, labs and reevaluation. Scribe Attestation: Documented by Lizzette Bullock acting as a scribe for José Miguel Mccoy MD Provider Scribe Attestation: All medical record entries made by the Scribe were at my direction and personally dictated by me. I have reviewed the chart and agree that the record accurately reflects my personal performance of the history, physical exam, medical decision making, and the department course for this patient. I have also personally directed, reviewed, and agree with the discharge instructions and disposition. Disposition Counseled Patient/Family Regarding: Studies Performed, Diagnosis, Need For Followup - Clinical Impression Clinical Impression: Generalized seizure - POA Present On Arrival: None - Disposition Disposition: Routine/Home Disposition Time: 03:50 Condition: STABLE Forms: [employer] (Gabonese) Progress Note - Review of Symptoms Events since last encounter: Time: 0010 CT Head FINDINGS: LIMITATIONS: Mild to moderate streak/motion artifact. BRAIN: Focal encephalomalacia in the right frontal lobe. This could be related to a chronic infarct or remote traumatic injury. Areas of hypodensity seen in the white matter bilaterally, nonspecific in appearance, but most likely representing chronic small vessel ischemic chages, in a patient of this age. No significant acute abnormality identified. Diffuse, age-related cortical atrophy and ventriculomegaly. No acute hemorrhage seen within the brain. No acute extra- axial fluid collections visualized. No evidence of significant mass effect within the brain. VENTRICLES: No evidence of significant hydrocephalus. BONES/JOINTS: No acute fractures or other acute bony abnormality noted. SOFT TISSUES: No acute abnormality of the visualized soft tissues is seen. SINUSES: Visualized paranasal sinuses appear clear. MASTOID AIR CELLS: Mastoid air cells appear clear. IMPRESSION: - No acute findings seen within the brain. - See above for remaining findings. Time: 0140 Pt resting in room, no acute distress. Time: 0318 Pt resting in room, no acute distress. Time: 0350 Labs reviewed and indicate no clinically significant abnormalities. Patient is awake, alert and oriented with steady gait, pt stable for discharge home.
[2017-02-04 02:17] LABS: BASO # 0.2 K/uL (0.0-0.2); BASO % 1.9 % (0.0-2.0); EOS # 0.2 K/uL (0.0-0.7); EOS % 2.3 % (0.0-4.0); HEMATOCRIT 34.9 % (35.0-51.0); LYMPH # 1.5 K/uL (1.0-4.3); LYMPH % 16.7 % (20.0-40.0); MEAN CELL VOLUME 99.7 fl (80.0-94.0); MEAN CORPUSCULAR HEMOGLOBIN 32.4 pg (27.0-31.0); MEAN CORPUSCULAR HGB CONC 32.4 g/dL (33.0-37.0); MONO # 2.2 K/uL (0.0-0.8); NEUT % 55.1 % (50.0-75.0); NRBC % 0.1 % (0.0-0.0); PLATELET COUNT 206 K/uL (130-400); RED CELL DISTRIBUTION WIDTH 14.4 % (11.5-14.5)
[2017-02-04 02:57] LABS: BLOOD UREA NITROGEN 22 mg/dl (9-20); CALCIUM 8.1 mg/dL (8.4-10.2); CARBON DIOXIDE 20 mmol/L (22-30); CHLORIDE 107 mmol/L (98-107); GFR AFRICAN-AMERICAN > 60; GLUCOSE,RANDOM 81 mg/dL (75-110); POTASSIUM 4.2 MMOL/L (3.6-5.0); SODIUM 136 mmol/l (132-148); TOTAL PROTEIN 7.2 G/DL (6.3-8.2)
[2017-02-04 02:58] LABS: ALB/GLOB RATIO 0.8 (1.0-2.1); ALKALINE PHOSPHATASE 249 U/L (38-126); ALT/SGPT 34 U/L (21-72); AST/SGOT 51 U/L (17-59); BILIRUBIN,TOTAL 0.5 mg/dl (0.2-1.3)
[2017-02-04 03:01] LABS: ALCOHOL SERUM 94 mg/dl (0-10)
[2017-02-04 04:22] VITALS: BP 136/81; PULSE 83; RESP 17; TEMP 98; O2SAT 98
[2017-02-04 05:35] LABS: GIANT PLATELETS PRESENT; NEUTROPHIL 61 % (42-75); TOTAL CELLS COUNTED 100
== END 2017-02-04 04:14 | disposition home or self-care (01) ==
LOC: H.ER 22:28
DX: G40.909 Epilepsy, unspecified, not intractable, without status epilepticus (principal); F10.10 Alcohol abuse, uncomplicated; F31.9 Bipolar disorder, unspecified; I10 Essential (primary) hypertension
CPT/HCPCS: 70450; 80053; 84484; 85025; 99285; G0480

== ENCOUNTER 2017-05-07 14:57 | Emergency (ER) | payer MEDICARE, MEDICAID ==
[2017-05-07 15:05] VITALS: BP 107/65; PULSE 79; RESP 16; TEMP 98; O2SAT 98
--- NOTE | 2017-05-07 15:49 | ED PDOC ---
HPI: Psych/Substance Abuse Time Seen by Provider: 05/07/17 15:30 Chief Complaint (Nursing): Alcohol Ingestion Chief Complaint (Provider): etoh History Per: Patient Additional Complaint(s): 51-year-old male with history of alcohol abuse and seizure disorder presents to emergency department acutely intoxicated. Patient states he was at home when he believes that he had a dream in which he had a seizure. Patient states he did not drink today, he drank yesterday. He denies any acute medical complaints. Past Medical History Reviewed: Historical Data, Nursing Documentation, Vital Signs Vital Signs: Last Vital Signs Temp 98.0 F 05/07/17 15:02 Pulse 79 05/07/17 15:02 Resp 16 05/07/17 15:02 BP 107/65 05/07/17 15:02 Pulse Ox 98 05/07/17 15:02 - Medical History PMH: Bipolar Disorder, Gastritis, HTN, Seizures - Surgical History Surgical History: Hernia Repair (b/l inguinal) - Family History Family History: States: No Known Family Hx - Living Arrangements Living Arrangements: Alone - Social History Alcohol: > 2 Drinks/Day - Home Medications Home Medications: Ambulatory Orders Medication Instructions Recorded Carvedilol [Coreg] 25 mg PO Q8H #0 tab 09/08/15 Ferrous Sulfate [Ferosul] 325 mg PO DAILY #0 tablet 09/08/15 amLODIPine [Norvasc] 5 mg PO DAILY #0 tab 09/08/15 Folic Acid 1 mg PO DAILY #30 tab 03/18/17 Levetiracetam [Keppra] 1,000 mg PO BID #120 tablet 03/18/17 Lisinopril [Zestril] 20 mg PO DAILY #30 tablet 03/18/17 Thiamine [Vitamin B1 Tab] 100 mg PO DAILY #30 tab 03/18/17 - Allergies Allergies/Adverse Reactions: Allergies Allergy/AdvReac Type Severity Reaction Status Date / Time No Known Allergies Allergy Verified 05/07/17 15:01 Review of Systems ROS Statement: Except As Marked, All Systems Reviewed And Found Negative Psych: Positive for: Other (etoh) Physical Exam - Reviewed Nursing Documentation Reviewed: Yes Vital Signs Reviewed: Yes - Physical Exam Appears: Positive for: Well, Non-toxic, No Acute Distress Skin: Negative for: Rash Eye Exam: Positive for: Normal appearance Cardiovascular/Chest: Positive for: Regular Rate, Rhythm Respiratory: Positive for: Normal Breath Sounds Extremity: Positive for: Normal ROM Neurologic/Psych: Positive for: Alert, Oriented, Other (Intoxicated, answers questions appropriately, no postictal state noted) - ECG O2 Sat by Pulse Oximetry: 98 Pulse Ox Interpretation: Normal Medical Decision Making Medical Decision Makin51 year old intoxicated male Plan: BAL Glucose POC BAL: 265 Glucose POC: 88 8:15 pm: patient is awake and alert with steady gait, stable for discharge. Disposition - Clinical Impression Clinical Impression: Alcohol intoxication - Patient ED Disposition Is Patient to be Admitted: No Counseled Patient/Family Regarding: Need For Followup - Disposition Referrals: [facility] [Outside] Disposition Time: 20:05 Condition: STABLE Instructions: Alcohol Intoxication (ED) Forms: [employer] (Salvadorean)
== END 2017-05-07 21:57 | disposition home or self-care (01) ==
LOC: H.ER 14:57
DX: F10.129 Alcohol abuse with intoxication, unspecified (principal); F31.9 Bipolar disorder, unspecified; G40.909 Epilepsy, unspecified, not intractable, without status epilepticus; I10 Essential (primary) hypertension; Y90.8 Blood alcohol level of 240 mg/100 ml or more
CPT/HCPCS: 82948; 99281; G0480

== ENCOUNTER 2017-05-11 17:44 | Emergency (ER) | payer MEDICARE, MEDICAID ==
[2017-05-11 17:50] VITALS: TEMP 97.7
[2017-05-11] MEDS ORDERED: Sodium Chloride 0.9% 1,000 ML IV STA (18:37)
--- NOTE | 2017-05-11 18:38 | ED PDOC ---
HPI: Psych/Substance Abuse Time Seen by Provider: 05/11/17 18:34 Chief Complaint (Nursing): Alcohol Ingestion History Per: Patient Onset/Duration Of Symptoms: Unknown Current Symptoms Are (Timing): Still Present Modifying Factor(s): Alcohol Additional Complaint(s): Brought by EMS for ETOH ingestion. No h/o injury Past Medical History Vital Signs: Last Vital Signs Temp 97.7 F 05/11/17 17:47 Pulse 98 H 05/11/17 17:47 Resp 16 05/11/17 17:47 BP 124/82 05/11/17 17:47 Pulse Ox 96 05/11/17 17:47 - Medical History PMH: Bipolar Disorder, Gastritis, HTN, Seizures - Surgical History Surgical History: Hernia Repair (b/l inguinal) - Family History Family History: States: Unknown Family Hx - Immunization History Hx Tetanus Toxoid Vaccination: No Hx Influenza Vaccination: No Hx Pneumococcal Vaccination: No - Home Medications Home Medications: Ambulatory Orders Medication Instructions Recorded Carvedilol [Coreg] 25 mg PO Q8H #0 tab 09/08/15 Ferrous Sulfate [Ferosul] 325 mg PO DAILY #0 tablet 09/08/15 amLODIPine [Norvasc] 5 mg PO DAILY #0 tab 09/08/15 Folic Acid 1 mg PO DAILY #30 tab 03/18/17 Levetiracetam [Keppra] 1,000 mg PO BID #120 tablet 03/18/17 Lisinopril [Zestril] 20 mg PO DAILY #30 tablet 03/18/17 Thiamine [Vitamin B1 Tab] 100 mg PO DAILY #30 tab 03/18/17 - Allergies Allergies/Adverse Reactions: Allergies Allergy/AdvReac Type Severity Reaction Status Date / Time No Known Allergies Allergy Verified 05/09/17 14:47 Review of Systems Review Of Systems: ROS cannot be obtained secondary to pt's inabilty to answer questions. Physical Exam - Reviewed Nursing Documentation Reviewed: Yes Vital Signs Reviewed: Yes - Physical Exam Appears: Positive for: Non-toxic, No Acute Distress Head Exam: Positive for: ATRAUMATIC, NORMAL INSPECTION, NORMOCEPHALIC Skin: Positive for: Normal Color, Warm, DRY Eye Exam: Positive for: EOMI, Normal appearance, PERRL ENT: Positive for: Normal ENT Inspection Neck: Positive for: Normal, Painless ROM Cardiovascular/Chest: Positive for: Regular Rate, Rhythm Respiratory: Positive for: CNT, Normal Breath Sounds Gastrointestinal/Abdominal: Positive for: Normal Exam, Bowel Sounds, Soft Back: Positive for: Normal Inspection Extremity: Positive for: Normal ROM Neurologic/Psych: Positive for: Alert. Negative for: Motor/Sensory Deficits - Laboratory Results Result Diagrams: 05/11/17 18:52 05/11/17 18:52 - ECG O2 Sat by Pulse Oximetry: 96 Disposition - Clinical Impression Clinical Impression: Alcohol abuse - Patient ED Disposition Is Patient to be Admitted: Transfer of Care - Disposition Disposition: Transfer of Care Disposition Time: 00:00 Condition: FAIR Instructions: Alcohol Intoxication (ED), Abuse of Alcohol (ED), Alcohol Dependence (ED) Forms: [employer] (Colombian) Patient Signed Over To: Noy Fofana
[2017-05-11 18:55] LABS: BASO % 0.9 % (0.0-2.0); EOS # 0.1 K/uL (0.0-0.7); EOS % 2.8 % (0.0-4.0); HEMATOCRIT 31.5 % (35.0-51.0); LYMPH # 1.4 K/uL (1.0-4.3); LYMPH % 29.2 % (20.0-40.0); MEAN CELL VOLUME 89.6 fl (80.0-94.0); MEAN CORPUSCULAR HEMOGLOBIN 28.2 pg (27.0-31.0); MEAN CORPUSCULAR HGB CONC 31.4 g/dL (33.0-37.0); MEAN PLATELET VOLUME 10.4 fl (7.2-11.7); MONO # 0.8 K/uL (0.0-0.8); MONO % 15.5 % (0.0-10.0); NEUT # 2.5 K/uL (1.8-7.0); NEUT % 51.6 % (50.0-75.0); NRBC % 0.2 % (0.0-0.0); RED CELL DISTRIBUTION WIDTH 16.7 % (11.5-14.5); WHITE BLOOD COUNT 4.9 K/uL (4.8-10.8)
[2017-05-11 19:14] LABS: ALB/GLOB RATIO 0.9 (1.0-2.1); ALKALINE PHOSPHATASE 230 U/L (38-126); ALT/SGPT 42 U/L (21-72); AST/SGOT 128 U/L (17-59); BILIRUBIN,TOTAL 0.6 mg/dl (0.2-1.3); BLOOD UREA NITROGEN 28 mg/dl (9-20); CARBON DIOXIDE 19 mmol/L (22-30); CHLORIDE 108 mmol/L (98-107); GFR AFRICAN-AMERICAN > 60; GLUCOSE,RANDOM 95 mg/dL (75-110); POTASSIUM 5.1 MMOL/L (3.6-5.0); SODIUM 142 mmol/l (132-148)
[2017-05-11 19:19] LABS: ALCOHOL SERUM 415 mg/dl (0-10)
--- NOTE | 2017-05-12 00:49 | ED PDOC ---
- Laboratory Results Result Diagrams: 05/11/17 18:52 05/11/17 18:52 - ECG O2 Sat by Pulse Oximetry: 96 (RA) Pulse Ox Interpretation: Normal Medical Decision Making Medical Decision Makin:00 Patient signed out to me by Dr. Chiang pending clinical sobriety. Reassess --4:10 Patient's conditions have improved and is stable gait, alert and oriented. sober. and is ready for discharge home. Scribe Attestation: Documented by Erwin Zarate acting as a scribe for Noy Fofana MD. Provider Attestation: All medical record entries made by the Scribe were at my direction and personally dictated by me. I have reviewed the chart and agree that the record accurately reflects my personal performance of the history, physical exam, medical decision making, and the department course for this patient. I have also personally directed, reviewed, and agree with the discharge instructions and disposition. Disposition - Clinical Impression Clinical Impression: Alcohol abuse, Alcohol poisoning - POA Present On Arrival: None - Disposition Disposition: Routine/Home Disposition Time: 04:10 Condition: IMPROVED Additional Instructions: follow up with your primary doctor in 1-2 days return to the ED with any worsening or concerning symptoms. Instructions: Alcohol Intoxication (ED), Abuse of Alcohol (ED), Alcohol Dependence (ED) Forms: [employer] (Maori)
[2017-05-12 04:52] VITALS: BP 136/81; PULSE 94; RESP 18
[2017-05-13 12:31] VITALS: O2SAT 96
== END 2017-05-12 04:52 | disposition home or self-care (01) ==
LOC: H.ER 17:44
DX: F10.10 Alcohol abuse, uncomplicated (principal); T51.0X1A Toxic effect of ethanol, accidental (unintentional), initial encounter; F31.9 Bipolar disorder, unspecified; I10 Essential (primary) hypertension
CPT/HCPCS: 80053; 82948; 85025; 99283; G0480

== ENCOUNTER 2017-06-26 06:22 | Emergency (ER) | payer MEDICARE, MEDICAID ==
[2017-06-26 06:33] VITALS: BP 167/97; PULSE 112; RESP 17; TEMP 98; O2SAT 98
--- NOTE | 2017-06-26 06:46 | ED PDOC ---
HPI: Seizure Time Seen by Provider: 06/26/17 06:34 Chief Complaint (Nursing): Seizure Chief Complaint (Provider): Seizure History Per: Patient History/Exam Limitations: no limitations Recent Seizure Activity Began: Just Before Arrival Number Of Seizures: One Length Of Seizures (Duration): Minutes (3) Additional Complaint(s): 51 year old male with a history of seizures and alcohol and substance abuse presents to the ED complaining of a seizure. Patient is well known to the ED and provider for multiple trips to the ED. States that his seizure was 3 minutes long prior to arrival. Also states he has been complaint with taking his Keppra and phenobarbital. Upon arrival, he is awake and alert, has steady gait and is fluently speaking. Says his last drink was a month ago. Denies any urinary incontinence. PMD: [facility] [place] Past Medical History Reviewed: Historical Data, Nursing Documentation, Vital Signs Vital Signs: Last Vital Signs Temp 98.0 F 06/26/17 06:28 Pulse 112 H 06/26/17 06:28 Resp 17 06/26/17 06:28 BP 167/97 H 06/26/17 06:28 Pulse Ox 98 06/26/17 08:04 - Medical History PMH: Bipolar Disorder, Gastritis, HTN, Seizures - Surgical History Surgical History: Hernia Repair (b/l inguinal) - Family History Family History: States: Unknown Family Hx - Immunization History Hx Tetanus Toxoid Vaccination: No Hx Influenza Vaccination: No Hx Pneumococcal Vaccination: No - Home Medications Home Medications: Ambulatory Orders Medication Instructions Recorded Carvedilol [Coreg] 25 mg PO Q8H #0 tab 09/08/15 Ferrous Sulfate [Ferosul] 325 mg PO DAILY #0 tablet 09/08/15 amLODIPine [Norvasc] 5 mg PO DAILY #0 tab 09/08/15 Folic Acid 1 mg PO DAILY #30 tab 03/18/17 Levetiracetam [Keppra] 1,000 mg PO BID #120 tablet 03/18/17 Lisinopril [Zestril] 20 mg PO DAILY #30 tablet 03/18/17 Thiamine [Vitamin B1 Tab] 100 mg PO DAILY #30 tab 03/18/17 - Allergies Allergies/Adverse Reactions: Allergies Allergy/AdvReac Type Severity Reaction Status Date / Time No Known Allergies Allergy Verified 05/09/17 14:47 Review of Systems ROS Statement: Except As Marked, All Systems Reviewed And Found Negative Neurological: Positive for: Seizures Physical Exam - Reviewed Nursing Documentation Reviewed: Yes Vital Signs Reviewed: Yes - Physical Exam Appears: Positive for: Non-toxic, No Acute Distress Head Exam: Positive for: ATRAUMATIC, NORMOCEPHALIC Skin: Positive for: Normal Color, Warm, Dry Eye Exam: Positive for: EOMI, Normal appearance, PERRL Neck: Positive for: Normal, Painless ROM, Supple Cardiovascular/Chest: Positive for: Regular Rate, Rhythm. Negative for: Murmur Respiratory: Positive for: Normal Breath Sounds. Negative for: Respiratory Distress Gastrointestinal/Abdominal: Positive for: Normal Exam, Soft Back: Positive for: Normal Inspection Extremity: Positive for: Normal ROM. Negative for: Deformity Neurologic/Psych: Positive for: Alert, Oriented. Negative for: Motor/Sensory Deficits - Laboratory Results Result Diagrams: 06/26/17 07:16 06/26/17 07:16 - ECG O2 Sat by Pulse Oximetry: 98 (RA) Pulse Ox Interpretation: Normal Medical Decision Making Medical Decision Making: Time: 06:33 Impression: 51 year old male with a seizure in setting of known seizure disorder and known alcohol abuse Initial Plan: --EKG --Alcohol serum --CMP --Urine drug --CBC --Phenobarbital --Accucheck Time: 07:00 -Patient signed out to Dr. Johnson. Scribe Attestation: Documented by Linda Elam, acting as a scribe for Inocente Lazaro MD. Provider Scribe Attestation: All medical record entries made by the Scribe were at my direction and personally dictated by me. I have reviewed the chart and agree that the record accurately reflects my personal performance of the history, physical exam, medical decision making, and the department course for this patient. I have also personally directed, reviewed, and agree with the discharge instructions and disposition. Disposition - Clinical Impression Clinical Impression: Alcohol abuse, Seizure - Patient ED Disposition Is Patient to be Admitted: Transfer of Care - Disposition Referrals: [facility] [Outside] Disposition: Transfer of Care Disposition Time: 07:00 Condition: STABLE Forms: [employer] (Armenian) Patient Signed Over To: Cait Johnson
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
[2017-06-26 07:41] LABS: BASO # 0.1 K/uL (0.0-0.2); EOS # 0.1 K/uL (0.0-0.7); HEMOGLOBIN 9.8 g/dL (12.0-18.0); LYMPH # 2.1 K/uL (1.0-4.3); LYMPH % 32.6 % (20.0-40.0); MEAN CELL VOLUME 91.3 fl (80.0-94.0); MEAN CORPUSCULAR HEMOGLOBIN 29.7 pg (27.0-31.0); MEAN CORPUSCULAR HGB CONC 32.5 g/dL (33.0-37.0); MEAN PLATELET VOLUME 11.3 fl (7.2-11.7); MONO # 1.2 K/uL (0.0-0.8); MONO % 17.6 % (0.0-10.0); NEUT # 3.1 K/uL (1.8-7.0); NEUT % 46.8 % (50.0-75.0); NRBC % 0.1 % (0.0-0.0); RBC 3.29 Mil/uL (4.40-5.90); RED CELL DISTRIBUTION WIDTH 22.5 % (11.5-14.5); WHITE BLOOD COUNT 6.6 K/uL (4.8-10.8)
[2017-06-26 07:43] LABS: ALB/GLOB RATIO 0.8 (1.0-2.1); ALBUMIN 3.9 g/dL (3.5-5.0); CALCIUM 8.3 mg/dL (8.4-10.2); GFR AFRICAN-AMERICAN > 60; GFR NON-AFRICAN AMERICAN > 60
[2017-06-26 07:45] LABS: ALT/SGPT 40 U/L (21-72); AST/SGOT 175 U/L (17-59); BLOOD UREA NITROGEN 21 mg/dl (9-20)
[2017-06-26] MEDS ORDERED: Sodium Chloride 0.9% 1,000 ML IV STA (07:46)
--- NOTE | 2017-06-26 18:08 | CARD ---
APPROVED REPORT EKG Measurement Heart [id number] <Conclusion> Sinus tachycardia Nonspecific ST and T wave abnormality Abnormal ECG
== END 2017-06-26 08:00 | disposition left against medical advice (07) ==
LOC: H.ER 06:22
DX: F10.10 Alcohol abuse, uncomplicated (principal); G40.909 Epilepsy, unspecified, not intractable, without status epilepticus; I10 Essential (primary) hypertension; F31.9 Bipolar disorder, unspecified
CPT/HCPCS: 80053; 80184; 82948; 85025; 93005; 99285; G0480

== ENCOUNTER 2017-06-27 15:39 | Emergency (ER) | payer MEDICARE, MEDICAID ==
[2017-06-27 16:03] VITALS: TEMP 98.1
[2017-06-27] MEDS ORDERED: Sodium Chloride 0.9% 1,000 ML IV STA (16:06)
[2017-06-27] MEDS ORDERED: Thiamine 100 mg/ml Inj IV STA (16:06)
[2017-06-27] MEDS ORDERED: Thiamine 100 MG in Sodium Chloride 0.9% 100 ML IV ONE (16:30)
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
[2017-06-27 16:40] LABS: BASO # 0.1 K/uL (0.0-0.2); BASO % 3.4 % (0.0-2.0); EOS % 0.5 % (0.0-4.0); HEMOGLOBIN 9.8 g/dL (12.0-18.0); LYMPH # 1.1 K/uL (1.0-4.3); LYMPH % 33.4 % (20.0-40.0); MEAN CELL VOLUME 92.6 fl (80.0-94.0); MEAN CORPUSCULAR HEMOGLOBIN 29.2 pg (27.0-31.0); MEAN CORPUSCULAR HGB CONC 31.6 g/dL (33.0-37.0); MEAN PLATELET VOLUME 10.2 fl (7.2-11.7); MONO # 0.4 K/uL (0.0-0.8); NEUT # 1.7 K/uL (1.8-7.0); NEUT % 50.7 % (50.0-75.0); NRBC % 0.2 % (0.0-0.0); PLATELET COUNT 170 K/uL (130-400); RBC 3.36 Mil/uL (4.40-5.90); RED CELL DISTRIBUTION WIDTH 22.2 % (11.5-14.5); WHITE BLOOD COUNT 3.3 K/uL (4.8-10.8)
[2017-06-27 17:12] LABS: ALB/GLOB RATIO 0.8 (1.0-2.1); ALBUMIN 3.9 g/dL (3.5-5.0); BLOOD UREA NITROGEN 19 mg/dl (9-20); GFR AFRICAN-AMERICAN > 60; GFR NON-AFRICAN AMERICAN > 60; MAGNESIUM 1.4 MG/DL (1.6-2.3)
[2017-06-27 17:13] LABS: ALT/SGPT 38 U/L (21-72); AST/SGOT 205 U/L (17-59)
--- NOTE | 2017-06-27 17:14 | CT ---
PROCEDURE: CT scan of the brain dated 06/27/2017 HISTORY: Head injury. COMPARISON: Comparison made with concurrent CT scan maxillofacial skeleton as well as prior CT scan brain dated 02/03/2017. TECHNIQUE: Axial computed tomography images were obtained through the head/brain without intravenous contrast. Radiation dose: Total exam DLP = 881.85 mGy-cm. This CT exam was performed using one or more of the following dose reduction techniques: Automated exposure control, adjustment of the mA and/or kV according to patient size, and/or use of iterative reconstruction technique. FINDINGS: HEMORRHAGE: No acute parenchymal, subarachnoid or extra-axial hemorrhage. BRAIN: Moderate to fairly significant diffuse/confluent chronic white matter ischemic changes seen extending peripherally into the deep and subcortical white matter both cerebral hemispheres. Moderate significant central volume loss evidenced by disproportionate enlargement of the ventricles as compared the sulci. There is persistent asymmetry of the lateral ventricles right-sided which is larger than the left felt to represent an anatomic variant. VENTRICLES: No obstructive hydrocephalus. CALVARIUM: Calvarium appears intact. Moderate size left supraorbital and frontotemporal scalp contusion/soft tissue swelling with overlying scalp laceration. Mild left premaxillary soft tissue swelling. There appears to be mild right posterior parieto-occipital scalp swelling is well PARANASAL SINUSES: Frontal sinuses remain hypoplastic. Remaining visualized paranasal sinuses well-developed and currently well-aerated. MASTOID AIR CELLS: Unremarkable as visualized. No inflammatory changes. OTHER FINDINGS: None. IMPRESSION: No acute intracranial hemorrhage. Left supraorbital and left frontals the temporal scalp contusion/soft tissue swelling with overlying scalp laceration. There is also mild left premaxillary soft tissue swelling. There also appears to be mild right posterior parieto-occipital scalp swelling is well Moderate to significant diffuse confluent white matter ischemic changes. Moderate central volume loss.
[2017-06-27] MEDS ORDERED: Magnesium Sulfate 2 gm/50 ml 2 GM/50 ML BAG IVPB ONE (17:18)
[2017-06-27] MEDS ORDERED: Thiamine 100 mg/ml Inj ONE (17:24)
--- NOTE | 2017-06-27 17:27 | CT ---
PROCEDURE: CT scan maxillofacial skeleton dated 06/27/2017. HISTORY: Left orbital swelling head injury intoxicated COMPARISON: Correlation made with concurrent CT scan of the brain. TECHNIQUE: Contiguous helical/transaxial CT images of the maxillofacial bones were obtained. Coronal and sagittal reformats were generated. Radiation dose: Total exam DLP = 802.63 mGy-cm. This CT exam was performed using one or more of the following dose reduction techniques: Automated exposure control, adjustment of the mA and/or kV according to patient size, and/or use of iterative reconstruction technique. FINDINGS: No evidence of acute maxillofacial skeletal fracture. Re- demonstrated is mild left premaxillary soft tissue swelling with moderate left supraorbital and left frontotemporal scalp contusion associated with any overlying laceration. There may also be some mild right posterior parietal scalp swelling as well. The orbits and contents unremarkable. Globes intact and lenses appropriately located there are no retrobulbar hemorrhages or collections. Optic nerves and extraocular musculature unremarkable. IMPRESSION: No evidence of acute maxillofacial skeletal fracture seen. Left supraorbital and left frontotemporal scalp contusion/soft tissue swelling with overlying scalp laceration. There is also mild right premaxillary soft tissue swelling.
[2017-06-27] MEDS ORDERED: Magnesium Sulfate 2 gm/50 ml 2 GM/50 ML BAG ONE (17:33)
--- NOTE | 2017-06-27 18:02 | CT ---
PROCEDURE: CT Cervical Spine without contrast HISTORY: Trauma COMPARISON: None available. TECHNIQUE: Axial computed tomography images were obtained of the cervical spine without the use of intravenous contrast. Coronal and sagittal reformatted images were created and reviewed. Radiation dose: Total exam DLP = 377.18 mGy-cm. This CT exam was performed using one or more of the following dose reduction techniques: Automated exposure control, adjustment of the mA and/or kV according to patient size, and/or use of iterative reconstruction technique. FINDINGS: VERTEBRAE: No evidence of acute displaced nor compression fracture deformities. The vertebral bodies exhibit normal stature. . . Very slight posterior subluxation of C4 over C5 and to a lesser degree C3 over C4 exacerbated in appearance by osteophytes at each level former slightly larger than latter. . There is also exaggerated cervical lordosis the which could be due to the presence of a hard cervical collar. Vertebral bodies and facets otherwise normally aligned. DISCS/SPINAL CANAL/NEURAL FORAMINA: Minor posterior disc space narrowing seen at the C4-C5 level. The remaining disc space heights are relatively maintained. There are no disc herniations. Small focal central and bilateral disc bulging changes noted at the C3-C4, C4-C5 and to a lesser degree C5-C6 levels. . The facet joints also mildly hypertrophic at these levels with mild bilateral foraminal stenosis at C4-C5 and to a lesser degree C5-C6 and C3-C4 levels. PARASPINAL SOFT TISSUES: Paraspinal soft tissues unremarkable. OTHER FINDINGS: Lung apices are clear. IMPRESSION: No acute fractures. Multilevel degenerative spondylosis most notably affecting the C4-C5 level as described. Exaggerated cervical lordosis
[2017-06-27] MEDS ORDERED: Lidocaine 2% Inj (20ml) ONE (19:16)
[2017-06-27] MEDS ORDERED: Povidone Iodine Oint 10% Foilpak UD ONE (19:24)
[2017-06-27 19:33] LABS: PARTIAL THROMBOPLASTIN TIME 33.2 Seconds (25.6-37.1)
[2017-06-27 19:34] VITALS: BP 139/92; PULSE 116; RESP 17
[2017-06-27 20:21] VITALS: O2SAT 98
[2017-06-27 21:42] LABS: INR 1.09 (0.92-1.08); PROTHROMBIN TIME 12.3 SECONDS (9.7-12.2)
--- NOTE | 2017-06-28 01:35 | ED PDOC ---
- Laboratory Results Result Diagrams: 06/27/17 16:35 06/27/17 16:35 - ECG O2 Sat by Pulse Oximetry: 98 (RA) Pulse Ox Interpretation: Normal Medical Decision Making Medical Decision Making: Time: 24:00 Patient signed out to me by Dr. Mandujano pending reevaluation. Clinical Impression: Forehead Laceration Upon provider evaluation patient is medically stable, and requires no further treatment in the ED at this time. Patient is alert and awake. Counseling was provided and all questions were answered regarding diagnosis and need for follow up with PMD. Scribe Attestation: Documented by Jackie Blackwood, acting as a scribe for Inocente Lazaro MD Provider Scribe Attestation: All medical record entries made by the Scribe were at my direction and personally dictated by me. I have reviewed the chart and agree that the record accurately reflects my personal performance of the history, physical exam, medical decision making, and the department course for this patient. I have also personally directed, reviewed, and agree with the discharge instructions and disposition. Disposition - Clinical Impression Clinical Impression: Head injury, Alcohol abuse, Forehead laceration - POA Present On Arrival: None - Disposition Disposition: Routine/Home Disposition Time: 01:20 Condition: STABLE Additional Instructions: Suture removal in 7 days Instructions: Care For Your Stitches (ED), Laceration (ED), Abuse of Alcohol ( ED) Forms: [employer] ([place]ux[place]ish)
[2017-06-28 06:03] LABS: BASOPHIL 2 % (0-2); EOSINOPHIL 1 % (0-7); LYMPHOCYTE 29 % (20-50); MONOCYTE 10 % (0-10); NEUTROPHIL 58 % (42-75); PLATELET ESTIMATE NORMAL (NORMAL); TOTAL CELLS COUNTED 100
[2017-06-28 06:04] LABS: HYPOCHROMIC SLIGHT; TARGET CELLS SLIGHT
[2017-06-28 06:05] LABS: SCHISTOCYTES SLIGHT
[2017-06-28 06:06] LABS: ACANTHOCYTES SLIGHT; ANISOCYTOSIS SLIGHT; POIKILOCYTOSIS SLIGHT
[2017-07-02 20:13] LABS: LEVETIRACETAM 18.7 mcg/mL
== END 2017-06-28 03:00 | disposition home or self-care (01) ==
LOC: H.ER 15:39
DX: S01.81XA Laceration without foreign body of other part of head, initial encounter (principal); S09.90XA Unspecified injury of head, initial encounter; W19.XXXA Unspecified fall, initial encounter; Y92.89 Other specified places as the place of occurrence of the external cause; Z86.69 Personal history of other diseases of the nervous system and sense organs; F31.9 Bipolar disorder, unspecified; F29 Unspecified psychosis not due to a substance or known physiological condition; F10.129 Alcohol abuse with intoxication, unspecified; I10 Essential (primary) hypertension; D72.819 Decreased white blood cell count, unspecified
CPT/HCPCS: 70450; 70486; 72125; 80053; 80299; 82550; 82948; 83605; 83735; 84100; 85025; 85610; 85730; 96372; 96374; 99285; G0480; J1630; J2060; J3411; J7040

== ENCOUNTER 2017-08-13 17:55 | Inpatient (IN) | payer MEDICARE, MEDICAID ==
--- NOTE | 2017-08-13 18:53 | ED PDOC ---
HPI: Psych/Substance Abuse Time Seen by Provider: 08/13/17 18:07 Chief Complaint (Nursing): Alcohol Ingestion Chief Complaint (Provider): Possible Alcohol Intoxication History Per: Patient History/Exam Limitations: no limitations Onset/Duration Of Symptoms: Other (prior to arrival) Current Symptoms Are (Timing): Still Present Additional Complaint(s): 51 year old male with a past medical history of HTN, seizures, alcohol abuse, and chronic anemia, who was brought to the ED by EMS due to possible alcohol intoxication. Patient reports he drinks every day. According to past charts, patient has had multiple visits for alcohol and substance abuse at this hospital. Patient reports history of seizures and states he last had a seizure last night. Denies fall or head injury. Reports taking Kepra and states he's compliant with medication. PMD: Jose Cruz Vila Past Medical History Reviewed: Historical Data, Nursing Documentation, Vital Signs Vital Signs: Last Vital Signs Temp 98.0 F 08/13/17 17:58 Pulse 118 H 08/13/17 17:58 Resp 16 08/13/17 17:58 BP 158/11 H 08/13/17 17:58 Pulse Ox 98 08/13/17 17:58 - Medical History PMH: Anemia, Bipolar Disorder, Gastritis, HTN, Seizures (Reported but not witnessed) - Surgical History Surgical History: Hernia Repair (b/l inguinal) - Family History Family History: States: Unknown Family Hx - Social History Current smoker - smoking cessation education provided: No Alcohol: > 2 Drinks/Day Drugs: Denies - Immunization History Hx Tetanus Toxoid Vaccination: No Hx Influenza Vaccination: No Hx Pneumococcal Vaccination: No - Home Medications Home Medications: Ambulatory Orders Medication Instructions Recorded Carvedilol [Coreg] 25 mg PO Q8H #0 tab 09/08/15 Ferrous Sulfate [Ferosul] 325 mg PO DAILY #0 tablet 09/08/15 amLODIPine [Norvasc] 5 mg PO DAILY #0 tab 09/08/15 Folic Acid 1 mg PO DAILY #30 tab 03/18/17 Levetiracetam [Keppra] 1,000 mg PO BID #120 tablet 03/18/17 Lisinopril [Zestril] 20 mg PO DAILY #30 tablet 03/18/17 Thiamine [Vitamin B1 Tab] 100 mg PO DAILY #30 tab 03/18/17 - Allergies Allergies/Adverse Reactions: Allergies Allergy/AdvReac Type Severity Reaction Status Date / Time No Known Allergies Allergy Verified 08/12/17 18:35 Review of Systems ROS Statement: Except As Marked, All Systems Reviewed And Found Negative Neurological: Positive for: Seizures Physical Exam - Reviewed Nursing Documentation Reviewed: Yes Vital Signs Reviewed: Yes - Physical Exam Appears: Positive for: Non-toxic, No Acute Distress (comfortable, disheveled) Head Exam: Positive for: ATRAUMATIC, NORMAL INSPECTION, NORMOCEPHALIC Skin: Positive for: Normal Color, Warm, Dry. Negative for: Rash Eye Exam: Positive for: EOMI, Normal appearance, PERRL Neck: Positive for: Normal, Painless ROM, Supple Cardiovascular/Chest: Positive for: Regular Rate, Rhythm. Negative for: Murmur Respiratory: Positive for: Normal Breath Sounds. Negative for: Respiratory Distress Gastrointestinal/Abdominal: Positive for: Normal Exam, Bowel Sounds, Soft. Negative for: Tenderness Back: Positive for: Normal Inspection. Negative for: L CVA Tenderness, R CVA Tenderness, Vertebral Tenderness Extremity: Positive for: Normal ROM. Negative for: Pedal Edema, Deformity Neurologic/Psych: Positive for: Alert (slurred speech), Oriented, Gait (unsteady ). Negative for: Motor/Sensory Deficits - ECG O2 Sat by Pulse Oximetry: 98 (RA) Pulse Ox Interpretation: Normal Medical Decision Making Medical Decision Making: Time: 18:41 Initial Impression: Alcohol intoxication, recurrent seizures, possible head injury Initial Plan: --Monitor for clinical sobriety --CT Head w/o contrast --Alcohol serum --Reevaluation Time: 21:13 CT HEAD FINDINGS: Brain: [id number] atrophy. 0.9 x 0.3 x 0.3 cm focal hyperdensity within left internal capsule/turner radiata, new in interval. No mass. Minimal encephalomalacia within right frontal region. Minimal decreased attenuation within periventricular white matter. Grossly preserved graywhite matter differentiation. Ventricles: No hydrocephalus. Bones/joints: No acute fracture. Chronic deformity right zygomatic arch, nasal bones. Soft tissues: Minimal scalp swelling. Sinuses: No acute sinusitis. Mastoid air cells: No mastoid effusion. Orbits: Unremarkable as visualized. IMPRESSION: 1. Focal hyperdensity within left internal capsule/turner radiata concerning for intraparenchymal hemorrhage, new in interval. Recommend follow up. 2. Nonspecific white matter changes. 3. Incidental/non-acute findings are described above Time: 22:[address] Dr. Figueroa, who recommends patient be admitted to OBS- Tele. Spoke with Dr. Hernandez, who says patient is cleared from a surgical point. Scribe Attestation: Documented by Jourdan Montague, acting as a scribe for José Miguel Mccoy MD. Provider Scribe Attestation: All medical record entries made by the Scribe were at my direction and personally dictated by me. I have reviewed the chart and agree that the record accurately reflects my personal performance of the history, physical exam, medical decision making, and the department course for this patient. I have also personally directed, reviewed, and agree with the discharge instructions and disposition. Disposition - Clinical Impression Clinical Impression: Alcohol abuse with uncomplicated intoxication, Seizure, Intraparenchymal hematoma of brain - Patient ED Disposition Is Patient to be Admitted: Yes Discussed With DrReynaldo: Jose Cruz Vila Doctor Will See Patient In The: Hospital Counseled Patient/Family Regarding: Studies Performed, Diagnosis - Disposition Disposition Time: 21:30 Condition: FAIR - Pt Status Changed To: Hospital Disposition Of: Inpatient - Admit Certification Admit to Inpatient:: After my assessment, the patient will require hospitalization for at least two midnights. This is because of the severity of symptoms shown, intensity of services needed, and/or the medical risk in this patient being treated as an outpatient. - POA Present On Arrival: None
--- NOTE | 2017-08-13 21:14 | CT ---
EXAM: CT Head Without Intravenous Contrast CLINICAL HISTORY: 51 years old, male; Injury or trauma; Fall; Initial encounter; Blunt trauma (contusions or hematomas); Consciousness not specified; Injury details: ETOH; Additional info: Head injury? TECHNIQUE: Axial computed tomography images of the head/brain without intravenous contrast. All CT scans at this facility use one or more dose reduction techniques, viz.: automated exposure control; ma/kV adjustment per patient size (including targeted exams where dose is matched to indication; i.e. head); or iterative reconstruction technique. Coronal and sagittal reformatted images were created and reviewed. COMPARISON: CT - HEAD W/O CONTRAST 2017-06-27 16:37 FINDINGS: Brain: Lxuf-uv-[id number] atrophy. 0.9 x 0.3 x 0.3 cm focal hyperdensity within left internal capsule/turner radiata, new in interval. No mass. Minimal encephalomalacia within right frontal region. Minimal decreased attenuation within periventricular white matter. Grossly preserved peraza-white matter differentiation. Ventricles: No hydrocephalus. Bones/joints: No acute fracture. Chronic deformity right zygomatic arch, nasal bones. Soft tissues: Minimal scalp swelling. Sinuses: No acute sinusitis. Mastoid air cells: No mastoid effusion. Orbits: Unremarkable as visualized. IMPRESSION: 1. Focal hyperdensity within left internal capsule/turner radiata concerning for intraparenchymal hemorrhage, new in interval. Recommend follow up. 2. Nonspecific white matter changes. 3. Incidental/non-acute findings are described above.
[2017-08-13] MEDS ORDERED: levETIRAcetam 500 MG in Sodium Chloride 0.9% 100 ML IVPB ONE (21:30)
[2017-08-13] MEDS ORDERED: Labetalol 5 mg/ml Inj 20ML IVP STA (21:45)
[2017-08-13] MEDS ORDERED: Multivitamin (MVI) 10 ML, Thiamine 100 MG, Folic Acid 1 MG in Dextrose 5%/0.45% NS 1,00... IV ONE (22:15)
[2017-08-14 07:34] LABS: BARBITURATES, UR POSITIVE (NEGATIVE); BENZODIAZEPINES, UR NEGATIVE (NEGATIVE); OPIATES, UR NEGATIVE (NEGATIVE); PHENCYCLIDINE, UR NEGATIVE (NEGATIVE)
[2017-08-14 14:16] LABS: HEMOGLOBIN 10.2 g/dL (12.0-18.0); MEAN CELL VOLUME 89.4 fl (80.0-94.0); MEAN CORPUSCULAR HEMOGLOBIN 29.2 pg (27.0-31.0); MEAN CORPUSCULAR HGB CONC 32.7 g/dL (33.0-37.0); RBC 3.5 Mil/uL (4.40-5.90); RED CELL DISTRIBUTION WIDTH 16.6 % (11.5-14.5); WHITE BLOOD COUNT 7.6 K/uL (4.8-10.8)
[2017-08-14 14:25] LABS: BLOOD UREA NITROGEN 12 mg/dl (9-20); CALCIUM 8.1 mg/dL (8.4-10.2); GFR AFRICAN-AMERICAN > 60; GFR NON-AFRICAN AMERICAN > 60
--- NOTE | 2017-08-14 14:46 | CP.PCM.CON ---
History of Present Illness - History of Present Illness History of Present Illness: 51 year old male with a past medical history of HTN, seizures, alcohol abuse, and chronic anemia, who was brought to the ED by EMS due to alcohol intoxication. Patient reports he drinks every day. According to past charts, patient has had multiple visits for alcohol and substance abuse at this hospital. Patient reports history of seizures and states he last had a seizure last night. Denies fall or head injury. It is not clear if he has a history of seizures, but he is on Keppra, and states compliance. PMH/PSH: as above FH/SH: non contributory. Patient was not able to provide. All: nkda. On exam: Normal neurological examination. however the patient is tangential although he speaks fluently. He is moving all extremities equally but motor exam is limited by cognition. It is not possible to do sensory exam at this time. I do not appreciate any dysmetria. Gait is not tested. Past Patient History - Infectious Disease Hx of Infectious Diseases: None - Past Medical History & Family History Past Medical History?: Yes - Past Social History Smoking Status: Never Smoked - CARDIAC Hx Hypertension: Yes - PULMONARY Hx Tuberculosis: No - NEUROLOGICAL Hx Seizures: Yes (Reported but not witnessed) - HEENT Hx HEENT Problems: No - ENDOCRINE/METABOLIC Hx Endocrine Disorders: No - HEMATOLOGICAL/ONCOLOGICAL Hx Anemia: Yes - INTEGUMENTARY Hx Dermatological Problems: (.) - MUSCULOSKELETAL/RHEUMATOLOGICAL Hx Musculoskeletal Disorders: Yes Hx Falls: Yes - GASTROINTESTINAL Hx Gastritis: Yes - GENITOURINARY/GYNECOLOGICAL Hx Genitourinary Disorders: No - PSYCHIATRIC Hx Bipolar Disorder: Yes Hx Substance Use: No - SURGICAL HISTORY Hx Orthopedic Surgery: Yes Hx Splenectomy: Yes Other/Comment: "left arm" - ANESTHESIA Hx Anesthesia: Yes Hx Anesthesia Reactions: No Meds Allergies/Adverse Reactions: Allergies Allergy/AdvReac Type Severity Reaction Status Date / Time No Known Allergies Allergy Verified 08/12/17 18:35 - Medications Medications: Current Medications Amlodipine Besylate (Norvasc) 5 mg PO DAILY [facility] Last Admin: 08/14/17 11:50 Dose: 5 mg Carvedilol (Coreg) 25 mg PO Q12 [facility] Ferrous Sulfate (Feosol) 325 mg PO DAILY [facility] Folic Acid (Folic Acid) 1 mg PO DAILY [facility] Levetiracetam (Keppra) 1,000 mg PO BID [facility] Lisinopril (Zestril) 20 mg PO DAILY [facility] Last Admin: 08/14/17 11:46 Dose: 20 mg Lorazepam (Ativan) 2 mg IV Q2 PRN PRN Reason: Symptoms of alcohol withdrawl Last Admin: 08/14/17 14:06 Dose: 2 mg Thiamine HCl (Vitamin B1 Tab) 100 mg PO DAILY [facility] Results - Vital Signs Recent Vital Signs: Last Vital Signs Temp 99 F 08/14/17 12:00 Pulse 109 H 08/14/17 12:00 Resp 20 08/14/17 12:00 BP 151/84 H 08/14/17 12:00 Pulse Ox 97 08/14/17 12:00 - Labs Result Diagrams: 08/15/17 06:40 08/15/17 06:40 Labs: Laboratory Results - last 24 hr 08/13/17 08/14/17 08/14/17 19:40 07:05 13:41 WBC 7.6 D RBC 3.50 L Hgb 10.2 L Hct 31.3 L MCV 89.4 D MCH 29.2 MCHC 32.7 L RDW 16.6 H Plt Count 206 Sodium Potassium Chloride Carbon Dioxide Anion Gap BUN Creatinine Est GFR ( Amer) Est GFR (Non-Af Amer) Random Glucose Calcium Urine Opiates Screen Negative Urine Methadone Screen Negative Ur Barbiturates Screen Positive H Ur Phencyclidine Scrn Negative Ur Amphetamines Screen Negative U Benzodiazepines Scrn Negative U Oth Cocaine Metabols Negative U Cannabinoids Screen Negative Alcohol, Quantitative 206 H 08/14/17 13:41 WBC RBC Hgb Hct MCV MCH MCHC RDW Plt Count Sodium 139 Potassium 4.3 Chloride 101 Carbon Dioxide 23 Anion Gap 19 BUN 12 Creatinine 0.9 Est GFR ( Amer) > 60 Est GFR (Non-Af Amer) > 60 Random Glucose 104 Calcium 8.1 L Urine Opiates Screen Urine Methadone Screen Ur Barbiturates Screen Ur Phencyclidine Scrn Ur Amphetamines Screen U Benzodiazepines Scrn U Oth Cocaine Metabols U Cannabinoids Screen Alcohol, Quantitative - Imaging and Cardiology CT scan - head Status: Image reviewed by me (normal), Report reviewed by me (normal ct head ) Assessment & Plan - Assessment and Plan (Free Text) Assessment: 51 yr old male with what appears to be a history of epilepsy as well as severe alcohol dependence and use. He may have stopped his keppra and had a seizure. In addition, he has a small linear, thalamic bleed that may be aneurysmal. plan: 1. CTA head yoni 2. hold all anticoagulants 3. EEG thursday Dr Henry MD, DPN
[2017-08-14] MEDS ORDERED: Iodixanol 320 MG/ML 100 ML BOTTLE IV ONE (20:31)
--- NOTE | 2017-08-14 22:00 | CT ---
EXAM: CT Head Without Intravenous Contrast CLINICAL HISTORY: 51 years old, male; Signs and symptoms; Other: Ich; Additional info: Ich intracranial bleeding. Alcohol abuse TECHNIQUE: Axial computed tomography images of the head/brain without intravenous contrast. All CT scans at this facility use one or more dose reduction techniques, viz.: automated exposure control; ma/kV adjustment per patient size (including targeted exams where dose is matched to indication; i.e. head); or iterative reconstruction technique. Coronal and sagittal reformatted images were created and reviewed. COMPARISON: CT - HEAD W/O CONTRAST 2017-08-13 20:14 FINDINGS: Brain: Jvam-zi-vbogkoeb atrophy. Redemonstration of small hyperdense focus within left internal capsule/turner radiata, grossly stable. No mass. Minimal encephalomalacia within right frontal region. Minimal decreased attenuation within periventricular white matter. Grossly preserved peraza-white matter differentiation. Ventricles: No hydrocephalus. Bones/joints: No acute fracture. Chronic deformity right zygomatic arch, nasal bones. Soft tissues: Minimal scalp swelling. Sinuses: No acute sinusitis. Mastoid air cells: No mastoid effusion. Orbits: Unremarkable as visualized. IMPRESSION: 1. No significant interval change of small intraparenchymal hemorrhage. 2. Nonspecific white matter changes. 3. Incidental/non-acute findings are described above.
--- NOTE | 2017-08-14 22:11 | CP.PCM.HP ---
Past Patient History - Infectious Disease Hx of Infectious Diseases: None - Past Medical History & Family History Past Medical History?: Yes - Past Social History Smoking Status: Never Smoked - CARDIAC Hx Hypertension: Yes - PULMONARY Hx Tuberculosis: No - NEUROLOGICAL Hx Seizures: Yes (Reported but not witnessed) - HEENT Hx HEENT Problems: No - ENDOCRINE/METABOLIC Hx Endocrine Disorders: No - HEMATOLOGICAL/ONCOLOGICAL Hx Anemia: Yes - INTEGUMENTARY Hx Dermatological Problems: (.) - MUSCULOSKELETAL/RHEUMATOLOGICAL Hx Musculoskeletal Disorders: Yes Hx Falls: Yes - GASTROINTESTINAL Hx Gastritis: Yes - GENITOURINARY/GYNECOLOGICAL Hx Genitourinary Disorders: No - PSYCHIATRIC Hx Bipolar Disorder: Yes Hx Substance Use: No - SURGICAL HISTORY Hx Orthopedic Surgery: Yes Hx Splenectomy: Yes Other/Comment: "left arm" - ANESTHESIA Hx Anesthesia: Yes Hx Anesthesia Reactions: No Meds Allergies/Adverse Reactions: Allergies Allergy/AdvReac Type Severity Reaction Status Date / Time No Known Allergies Allergy Verified 08/12/17 18:35 Results - Vital Signs Recent Vital Signs: Last Vital Signs Temp 100 F H 08/14/17 19:28 Pulse 127 H 08/14/17 21:25 Resp 20 08/14/17 19:28 BP 176/100 H 08/14/17 21:25 Pulse Ox 96 08/14/17 19:28 - Labs Result Diagrams: 08/14/17 13:41 08/14/17 13:41 Labs: Laboratory Results - last 24 hr 08/14/17 08/14/17 08/14/17 07:05 13:41 13:41 WBC 7.6 D RBC 3.50 L Hgb 10.2 L Hct 31.3 L MCV 89.4 D MCH 29.2 MCHC 32.7 L RDW 16.6 H Plt Count 206 Sodium 139 Potassium 4.3 Chloride 101 Carbon Dioxide 23 Anion Gap 19 BUN 12 Creatinine 0.9 Est GFR ( Amer) > 60 Est GFR (Non-Af Amer) > 60 Random Glucose 104 Calcium 8.1 L Urine Opiates Screen Negative Urine Methadone Screen Negative Ur Barbiturates Screen Positive H Ur Phencyclidine Scrn Negative Ur Amphetamines Screen Negative U Benzodiazepines Scrn Negative U Oth Cocaine Metabols Negative U Cannabinoids Screen Negative
--- NOTE | 2017-08-14 22:43 | CT ---
EXAM: CT Angiography Head With Intravenous Contrast CT Angiography Neck With Intravenous Contrast EXAM DATE/TIME: 08/14/2017 2:40 PM CLINICAL HISTORY: 51 years old, male; Signs and symptoms; Other: Stroke. Intracranial bleeding, alcohol abuse TECHNIQUE: Axial computed tomographic angiography images of the head and neck with intravenous contrast using CT angiography protocol. All CT scans at this facility use one or more dose reduction techniques, viz.: automated exposure control; ma/kV adjustment per patient size (including targeted exams where dose is matched to indication; i.e. head); or iterative reconstruction technique. All CT scans at this facility use one or more dose reduction techniques, viz.: automated exposure control; ma/kV adjustment per patient size (including targeted exams where dose is matched to indication; i.e. head); or iterative reconstruction technique. MIP reconstructed images were created and reviewed. Coronal and sagittal reformatted images were created and reviewed. CONTRAST: 95 mL of VISIPAQUE-320 administered intravenously. COMPARISON: Recent head CT. FINDINGS: LIMITATIONS: Moderate to marked streak/motion artifact, particularly involving the intracranial images. HEAD: The intracranial arteries, including the [place] of [place] vessels and their branches, are poorly evaluated due to motion artifact. No obvious large vessel occlusion is seen, however, the exam is nondiagnostic for the detection of aneurysms. NECK: RIGHT COMMON CAROTID ARTERY: No evidence of occlusion or significant stenosis. No evidence of dissection. RIGHT INTERNAL CAROTID ARTERY: No evidence of occlusion. No aneurysm visualized. RIGHT EXTERNAL CAROTID ARTERY: No evidence of occlusion. RIGHT VERTEBRAL ARTERY: No evidence of occlusion or significant stenosis. No evidence of dissection. LEFT COMMON CAROTID ARTERY: No evidence of occlusion or significant stenosis. No evidence of dissection. LEFT INTERNAL CAROTID ARTERY: Minimal calcified plaque in the left carotid bulb, causing less than 10% stenosis. No evidence of occlusion or dissection. LEFT EXTERNAL CAROTID ARTERY: No evidence of occlusion. LEFT VERTEBRAL ARTERY: No evidence of occlusion or significant stenosis. No evidence of dissection. HEAD and NECK: BONES/JOINTS: Chronic deformity of the right clavicle, compatible with an old fracture. Chronic vertebral compression fracture of T6 SOFT TISSUES: No acute abnormality of the visualized soft tissues seen. CAROTID STENOSIS REFERENCE USING NASCET CRITERIA: % ICA stenosis = (1 - narrowest ICA diameter/diameter of distal cervical ICA) x 100. Mild - <50% stenosis. Moderate - 50-69% stenosis. Severe - 70-94% stenosis. Near occlusion - 95-99% stenosis. Occluded - 100% stenosis. IMPRESSION: - Significantly limited exam due to motion artifact. The intracranial arteries are poorly evaluated. Consider a repeat exam rule out pathology of the intracranial arteries, as clinically indicated. - No evidence of occlusion or other acute abnormality of the major NECK arteries. - See above for remaining findings.
[2017-08-15 07:31] LABS: BASO # 0.1 K/uL (0.0-0.2); BASO % 2.1 % (0.0-2.0); EOS # 0.3 K/uL (0.0-0.7); EOS % 4.8 % (0.0-4.0); HEMOGLOBIN 9.8 g/dL (12.0-18.0); LYMPH % 16.8 % (20.0-40.0); MEAN CELL VOLUME 90.3 fl (80.0-94.0); MEAN CORPUSCULAR HEMOGLOBIN 29.6 pg (27.0-31.0); MEAN CORPUSCULAR HGB CONC 32.7 g/dL (33.0-37.0); MEAN PLATELET VOLUME 10.1 fl (7.2-11.7); MONO # 1.2 K/uL (0.0-0.8); MONO % 20.1 % (0.0-10.0); NEUT # 3.3 K/uL (1.8-7.0); NEUT % 56.2 % (50.0-75.0); NRBC % 0.4 % (0.0-0.0); PLATELET COUNT 183 K/uL (130-400); RBC 3.32 Mil/uL (4.40-5.90); RED CELL DISTRIBUTION WIDTH 16.8 % (11.5-14.5); WHITE BLOOD COUNT 5.9 K/uL (4.8-10.8)
[2017-08-15 07:49] LABS: ALB/GLOB RATIO 0.7 (1.0-2.1); ALT/SGPT 32 U/L (21-72); AST/SGOT 54 U/L (17-59); BLOOD UREA NITROGEN 12 mg/dl (9-20); CALCIUM 7.8 mg/dL (8.4-10.2); GFR AFRICAN-AMERICAN > 60; GFR NON-AFRICAN AMERICAN > 60
[2017-08-15 12:41] LABS: ANISOCYTOSIS SLIGHT; BASOPHIL 1 % (0-2); EOSINOPHIL 4 % (0-7); LYMPHOCYTE 19 % (20-50); MONOCYTE 19 % (0-10); NEUTROPHIL 57 % (42-75); NUCLEATED RED BLOOD CELL 1 % (0-0); PLATELET ESTIMATE NORMAL (NORMAL); TOTAL CELLS COUNTED 100
[2017-08-15 12:42] LABS: HYPOCHROMIC SLIGHT; LARGE PLATELETS PRESENT; OVALOCYTES SLIGHT; PLATELET CLUMPS PRESENT; SCHISTOCYTES SLIGHT; TARGET CELLS SLIGHT; TEARDROP CELLS SLIGHT
--- NOTE | 2017-08-15 16:31 | CP.PCM.PN ---
Objective - Vital Signs/Intake and Output Vital Signs (last 24 hours): Temp Pulse Resp BP Pulse Ox 98.3 F 84 20 117/78 98 08/15/17 16:29 08/15/17 16:29 08/15/17 16:29 08/15/17 16:29 08/15/17 16:29 - Medications Medications: Current Medications Amlodipine Besylate (Norvasc) 5 mg PO DAILY [facility] Last Admin: 08/15/17 09:47 Dose: 5 mg Carvedilol (Coreg) 25 mg PO Q12 [facility] Last Admin: 08/15/17 09:47 Dose: 25 mg Chlordiazepoxide (Librium) 25 mg PO Q6 [facility] Last Admin: 08/15/17 09:50 Dose: 25 mg Ferrous Sulfate (Feosol) 325 mg PO DAILY [facility] Last Admin: 08/15/17 09:47 Dose: 325 mg Folic Acid (Folic Acid) 1 mg PO DAILY [facility] Last Admin: 08/15/17 09:47 Dose: 1 mg Levetiracetam (Keppra) 1,000 mg PO BID [facility] Last Admin: 08/15/17 09:47 Dose: 1,000 mg Lisinopril (Zestril) 20 mg PO DAILY [facility] Last Admin: 08/15/17 09:48 Dose: 20 mg Lorazepam (Ativan) 2 mg IV Q2 PRN PRN Reason: Symptoms of alcohol withdrawl Last Admin: 08/15/17 12:56 Dose: 2 mg Thiamine HCl (Vitamin B1 Tab) 100 mg PO DAILY [facility] Last Admin: 08/15/17 09:48 Dose: 100 mg - Labs Labs: 08/15/17 06:40 08/15/17 06:40
[2017-08-16 08:42] LABS: HEMOGLOBIN 10.7 g/dL (12.0-18.0); MEAN CELL VOLUME 92.3 fl (80.0-94.0); MEAN CORPUSCULAR HEMOGLOBIN 29.3 pg (27.0-31.0); MEAN CORPUSCULAR HGB CONC 31.8 g/dL (33.0-37.0); RBC 3.64 Mil/uL (4.40-5.90); RED CELL DISTRIBUTION WIDTH 16.9 % (11.5-14.5); WHITE BLOOD COUNT 6.4 K/uL (4.8-10.8)
[2017-08-16 08:48] LABS: ALB/GLOB RATIO 0.7 (1.0-2.1); ALBUMIN 3.1 g/dL (3.5-5.0); ALT/SGPT 26 U/L (21-72); AST/SGOT 39 U/L (17-59); BLOOD UREA NITROGEN 18 mg/dl (9-20); CALCIUM 8.1 mg/dL (8.4-10.2); GFR AFRICAN-AMERICAN > 60; GFR NON-AFRICAN AMERICAN > 60
--- NOTE | 2017-08-16 08:48 | PN ---
DATE: 08/16/2017 SUBJECTIVE: The patient is seen and examined. Interim events noted. Consults noted and appreciated. The patient remains in Progressive Care Unit on telemetry monitoring. The patient was recently sedated with Ativan, not able to provide informative history or review of system. No specific issue reported by nursing staff. PHYSICAL EXAMINATION: GENERAL: The patient is in no acute distress. VITAL SIGNS: Stable. HEART: S1 and S2, normal and regular. LUNGS: Good bilateral air exchange. GASTROINTESTINAL: Abdomen is soft and nontender. EXTREMITIES: No edema, no calf swelling, and no tenderness. No ischemia. CENTRAL NERVOUS SYSTEM: Exam is essentially unchanged. DIAGNOSTIC DATA: Available diagnostic data reviewed. Telemetry monitoring does not show any significant arrhythmia. IMPRESSION AND PLAN: Overall, the patient's general medical condition is stable. Plan as ordered. Jose Cruz Vila MD
--- NOTE | 2017-08-16 10:00 | CP.PCM.PN ---
Subjective - Date & Time of Evaluation Date of Evaluation: 08/16/17 Time of Evaluation: 09:57 - Subjective Subjective: Mr. Sol was seen and examined at the bedside. He is very drowsy and unable to answer any questions or follow commands. He moves all extremities spontaneously and currently on telesitter for patient safety. He had an episode of agitation and ativan was given. He is not in any kind of distress. CTA of head and neck showed motion artifacts. no evidence of occlusion or other acute abnormality of the major neck arteries. Objective - Vital Signs/Intake and Output Vital Signs (last 24 hours): Temp Pulse Resp BP Pulse Ox 98.6 F 82 20 131/76 95 08/16/17 08:00 08/16/17 08:00 08/16/17 08:00 08/16/17 08:00 08/16/17 08:00 - Medications Medications: Current Medications Amlodipine Besylate (Norvasc) 5 mg PO DAILY [facility] Last Admin: 08/15/17 09:47 Dose: 5 mg Carvedilol (Coreg) 25 mg PO Q12 [facility] Last Admin: 08/15/17 21:14 Dose: 25 mg Chlordiazepoxide (Librium) 25 mg PO Q6 [facility] Last Admin: 08/16/17 05:30 Dose: 25 mg Ferrous Sulfate (Feosol) 325 mg PO DAILY [facility] Last Admin: 08/15/17 09:47 Dose: 325 mg Folic Acid (Folic Acid) 1 mg PO DAILY [facility] Last Admin: 08/15/17 09:47 Dose: 1 mg Levetiracetam (Keppra) 1,000 mg PO BID [facility] Last Admin: 08/15/17 17:51 Dose: Not Given Lisinopril (Zestril) 20 mg PO DAILY [facility] Last Admin: 08/15/17 09:48 Dose: 20 mg Lorazepam (Ativan) 2 mg IV Q2 PRN PRN Reason: Symptoms of alcohol withdrawl Last Admin: 08/16/17 05:28 Dose: 2 mg Thiamine HCl (Vitamin B1 Tab) 100 mg PO DAILY [facility] Last Admin: 08/15/17 09:48 Dose: 100 mg - Labs Labs: 08/16/17 07:34 08/16/17 07:34 - Constitutional Appears: No Acute Distress - Head Exam Head Exam: NORMAL INSPECTION - Neurological Exam Neuro motor strength exam: Left Upper Extremity: 4, Right Upper Extremity: 4, Left Lower Extremity: 4, Right Lower Extremity: 4 Additional comments: He is confused but moves all extremities spontaneously. Assessment and Plan (1) Seizure Assessment & Plan: Case discussed with Dr. Figueroa, continue all current medical regimen. Recommend repeat CTA of the head and EEG. Status: Acute
--- NOTE | 2017-08-17 09:21 | PN ---
DATE: 08/17/2017 SUBJECTIVE: The patient is seen and examined. Interim events noted. The patient remains in regular medical floor. Neurology consult noted and appreciated. The patient is on telemetry monitoring. Feels okay. Denies any specific complaints. The patient is sleepy and arousable. Feels okay. Denies any chest pain or shortness of breath or dizziness. PHYSICAL EXAMINATION: GENERAL: The patient is in no acute distress. VITAL SIGNS: Stable. HEART: S1 and S2, normal and regular. LUNGS: Good bilateral air exchange. ABDOMEN: Soft and nontender. EXTREMITIES: No calf swelling. No tenderness. No acute ischemia. 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 DIAGNOSTIC DATA: Available diagnostic data reviewed. Overall, telemetry monitoring does not reveal significant arrhythmia. PLAN: Overall, the patient's general medical condition is stable. Plan as ordered. Jose Cruz Vila MD
--- NOTE | 2017-08-17 09:52 | CP.PCM.PN ---
Subjective - Date & Time of Evaluation Date of Evaluation: 08/17/17 Time of Evaluation: 09:51 - Subjective Subjective: Mr. Sol was seen and examined at the bedside. He is very drowsy and unable to answer any questions or follow commands. He moves all extremities spontaneously and currently on telesitter for patient safety. He had an episode of agitation and ativan was given. He is not in any kind of distress. Upon awaken, pt has the episode of screaming but was able to redirect by the staff. Objective - Vital Signs/Intake and Output Vital Signs (last 24 hours): Temp Pulse Resp BP Pulse Ox 98.5 F 77 18 108/65 97 08/17/17 08:00 08/17/17 08:59 08/17/17 08:00 08/17/17 08:59 08/17/17 08:00 - Medications Medications: Current Medications Amlodipine Besylate (Norvasc) 5 mg PO DAILY [facility] Last Admin: 08/17/17 08:58 Dose: 5 mg Carvedilol (Coreg) 25 mg PO Q12 [facility] Last Admin: 08/17/17 08:58 Dose: 25 mg Chlordiazepoxide (Librium) 25 mg PO Q6 [facility] Last Admin: 08/17/17 09:00 Dose: 25 mg Ferrous Sulfate (Feosol) 325 mg PO DAILY [facility] Last Admin: 08/17/17 08:58 Dose: 325 mg Folic Acid (Folic Acid) 1 mg PO DAILY [facility] Last Admin: 08/17/17 08:58 Dose: 1 mg Levetiracetam (Keppra) 1,000 mg PO BID [facility] Last Admin: 08/17/17 08:58 Dose: 1,000 mg Lisinopril (Zestril) 20 mg PO DAILY [facility] Last Admin: 08/17/17 08:59 Dose: 20 mg Lorazepam (Ativan) 2 mg IV Q2 PRN PRN Reason: Symptoms of alcohol withdrawl Last Admin: 08/17/17 00:30 Dose: 2 mg Thiamine HCl (Vitamin B1 Tab) 100 mg PO DAILY [facility] Last Admin: 08/17/17 08:59 Dose: 100 mg - Labs Labs: 08/16/17 07:34 08/16/17 07:34 - Constitutional Appears: No Acute Distress - Head Exam Head Exam: NORMAL INSPECTION - Neurological Exam Neurological Exam: Alert, Awake, Oriented x3 Neuro motor strength exam: Left Upper Extremity: 5, Right Upper Extremity: 5, Left Lower Extremity: 5, Right Lower Extremity: 5 Additional comments: Neurological unchanged from previous examination. Assessment and Plan (1) Seizure Assessment & Plan: Case discussed with Dr. Figueroa, continue all current medical regimen. Recommend repeat CTA of the head and EEG. Status: Acute
[2017-08-17] MEDS ORDERED: Iodixanol 320 MG/ML 100 ML BOTTLE IV ONE (14:47)
[2017-08-17] MEDS ORDERED: Sodium Chloride 0.9% 100 ML ONE (14:47)
--- NOTE | 2017-08-17 16:39 | CT ---
PROCEDURE: CTA of the brain dated 08/17/2017. HISTORY: AMS COMPARISON: Comparison made with CTA of the brain dated 08/14/[address] scans of the brain dated 08/14/2017 and 08/13/2017 respectively. TECHNIQUE: This CT exam was performed using one or more of the following dose reduction techniques: Automated exposure control, adjustment of the mA and/or kV according to patient size, and/or use of iterative reconstruction technique. . 80 cc Visipaque 320 contrast material injected for this examination. Radiation dose: Total DLP = 75583.88 mGy - cm. FINDINGS: The visualized portions of the mid and distal common carotid artery is widely patent as are both carotid bifurcations despite some minimal calcified plaque posterior aspect left carotid bifurcation. The distal internal carotid arteries including the petrous, cavernous and supraclinoid segments also widely patent though there also appear to be some minimal calcified plaque both carotid siphons. . There is asymmetry of the vertebral arteries, left-sided which is larger in caliber/more dominant than the right. Basilar artery patent. The visualized major branches of the [place] are also patent though there is some minimal asymmetry of the A1 segments right-sided which is larger in caliber than the left felt to represent an anatomic variation. Distal anterior, middle and posterior cerebral arteries are patent and relatively symmetric. No evidence of large aneurysm nor vascular malformation. Small hemorrhage within the posterior limb left internal capsule is less well seen on this study due to presence of circulating intravenous contrast material Re- demonstrated are presumed posttraumatic partially cystic encephalomalacia changes right inferior frontal pole with moderate on ex vacuo dilatation of the right lateral ventricle on particularly the frontal horn. Additionally, there are mild diffuse/confluent chronic periventricular white matter ischemic changes seen extending peripherally into the deep and subcortical white matter both cerebral hemispheres. Please refer to prior noncontrast CT scans of the brain dated 08/14/2017 and 08/13/2017 respectively. IMPRESSION: No evidence of occlusion or significant stenosis of the visualized portions of the distal internal carotid arteries or intracranial circulation as described. No evidence of large aneurysm nor vascular malformation. Small hemorrhage within the posterior limb left internal capsule is less well seen on this study due to presence of circulating intravenous contrast material
--- NOTE | 2017-08-18 14:35 | CP.PCM.PN ---
Subjective - Date & Time of Evaluation Date of Evaluation: 08/18/17 Time of Evaluation: 07:00 - Subjective Subjective: Evaluated with Dr Vila during rounds this morning. Stable. Seems sleepy/drowsy this morning. Easily arousable and responds to verbal commands but speech is somewhat difficult to understand. Afebrile. No acute events overnight. On obs. Afebrile. Objective - Vital Signs/Intake and Output Vital Signs (last 24 hours): Temp Pulse Resp BP Pulse Ox 98.0 F 75 20 101/66 97 08/18/17 11:53 08/18/17 11:53 08/18/17 11:53 08/18/17 11:53 08/18/17 11:53 - Medications Medications: Current Medications Amlodipine Besylate (Norvasc) 5 mg PO DAILY [facility] Last Admin: 08/18/17 08:41 Dose: 5 mg Carvedilol (Coreg) 25 mg PO Q12 [facility] Last Admin: 08/18/17 08:40 Dose: 25 mg Chlordiazepoxide (Librium) 25 mg PO Q8 [facility] Last Admin: 08/18/17 12:19 Dose: 25 mg Ferrous Sulfate (Feosol) 325 mg PO DAILY [facility] Last Admin: 08/18/17 08:40 Dose: 325 mg Folic Acid (Folic Acid) 1 mg PO DAILY [facility] Last Admin: 08/18/17 08:41 Dose: 1 mg Levetiracetam (Keppra) 1,000 mg PO BID [facility] Last Admin: 08/18/17 08:41 Dose: 1,000 mg Lisinopril (Zestril) 20 mg PO DAILY [facility] Last Admin: 08/18/17 08:42 Dose: 20 mg Lorazepam (Ativan) 2 mg IV Q2 PRN PRN Reason: Symptoms of alcohol withdrawl Last Admin: 08/18/17 06:56 Dose: 2 mg Quetiapine Fumarate (Seroquel) 25 mg PO HS [facility] Thiamine HCl (Vitamin B1 Tab) 100 mg PO DAILY [facility] Last Admin: 08/17/17 08:59 Dose: 100 mg - Labs Labs: 08/16/17 07:34 08/16/17 07:34 - Constitutional Appears: No Acute Distress, Chronically Ill - Eye Exam Eye Exam: PERRL - ENT Exam ENT Exam: Mucous Membranes Moist - Respiratory Exam Respiratory Exam: Clear to Ausculation Bilateral, NORMAL BREATHING PATTERN. absent: Decreased Breath Sounds, Rales, Respiratory Distress - Cardiovascular Exam Cardiovascular Exam: REGULAR RHYTHM, +S1, +S2. absent: Gallop - GI/Abdominal Exam GI & Abdominal Exam: Soft, Normal Bowel Sounds. absent: Guarding, Tenderness, Rebound - Extremities Exam Extremities Exam: Normal Capillary Refill. absent: Calf Tenderness, Pedal Edema , Tenderness - Neurological Exam Neurological Exam: Alert, Awake - Skin Skin Exam: Normal Color, Warm Assessment and Plan - Assessment and Plan (Free Text) Assessment: Seizure disorder/Intracraneal hemorrhage Stable C/W current meds Neuro consult appreciated PT/OT Discharge planning. Would benefits from rehab
--- NOTE | 2017-08-19 11:13 | CP.PCM.CON ---
History of Present Illness - History of Present Illness History of Present Illness: Psychiatry consult note Patient not cooperative w/ interview, stated that he wanted to sleep and that he does not know why psychiatry was called. History had to be obtained from the chart. HPI: 51 year old male with a past medical history of HTN, seizures, alcohol abuse, and chronic anemia, who was brought to the ED by EMS due to alcohol intoxication. Patient reports he drinks every day. According to past charts, patient has had multiple visits for alcohol and substance abuse at this hospital. As per staff, patient has been irritable and agitated. No current signs/symptoms of ETOH w/drawal. A + O x self, hospital in [place], not date, knew [employer]. PMH: Seizures disorder, HTN, Alcohol abuse, Chronic Anemia ALL: NKDA SHx: Drinks daily MSE: Alert, not cooperative with interview, reports mood as "okay." affect- labile/irritable, thought process- coherent, denied AH/VH/SI/HI. Poor I/J Impression: 51 yo male w/ alcohol use disorder, likely w/ chronic neurocognitive impairment due to chronic alcohol abuse. -Can increase Seroquel to 50 mg PO HS -Seroquel 50 mg Q8HR PRN agitation -Consider psychology consult to determine level of neurocognitive function -Treat for ETOH withdrawal as per [facility] protocol -No acute psychiatric admission indicated at this time Past Patient History - Infectious Disease Hx of Infectious Diseases: None - Past Medical History & Family History Past Medical History?: Yes - Past Social History Smoking Status: Never Smoked - CARDIAC Hx Hypertension: Yes - PULMONARY Hx Tuberculosis: No - NEUROLOGICAL Hx Seizures: Yes (Reported but not witnessed) - HEENT Hx HEENT Problems: No - ENDOCRINE/METABOLIC Hx Endocrine Disorders: No - HEMATOLOGICAL/ONCOLOGICAL Hx Anemia: Yes - INTEGUMENTARY Hx Dermatological Problems: (.) - MUSCULOSKELETAL/RHEUMATOLOGICAL Hx Musculoskeletal Disorders: Yes Hx Falls: Yes - GASTROINTESTINAL Hx Gastritis: Yes - GENITOURINARY/GYNECOLOGICAL Hx Genitourinary Disorders: No - PSYCHIATRIC Hx Bipolar Disorder: Yes Hx Substance Use: No - SURGICAL HISTORY Hx Orthopedic Surgery: Yes Hx Splenectomy: Yes Other/Comment: "left arm" - ANESTHESIA Hx Anesthesia: Yes Hx Anesthesia Reactions: No Meds Allergies/Adverse Reactions: Allergies Allergy/AdvReac Type Severity Reaction Status Date / Time No Known Allergies Allergy Verified 08/12/17 18:35 - Medications Medications: Current Medications Amlodipine Besylate (Norvasc) 5 mg PO DAILY [facility] Last Admin: 08/19/17 10:45 Dose: 5 mg Carvedilol (Coreg) 25 mg PO Q12 [facility] Last Admin: 08/19/17 10:46 Dose: 25 mg Chlordiazepoxide (Librium) 25 mg PO Q8 [facility] Last Admin: 08/19/17 00:37 Dose: 25 mg Ferrous Sulfate (Feosol) 325 mg PO DAILY [facility] Last Admin: 08/19/17 10:46 Dose: 325 mg Folic Acid (Folic Acid) 1 mg PO DAILY [facility] Last Admin: 08/19/17 10:47 Dose: 1 mg Levetiracetam (Keppra) 1,000 mg PO BID [facility] Last Admin: 08/19/17 10:45 Dose: 1,000 mg Lisinopril (Zestril) 20 mg PO DAILY [facility] Last Admin: 08/19/17 10:47 Dose: 20 mg Lorazepam (Ativan) 2 mg IV Q2 PRN PRN Reason: Symptoms of alcohol withdrawl Last Admin: 08/19/17 04:28 Dose: 2 mg Quetiapine Fumarate (Seroquel) 25 mg PO HS [facility] Last Admin: 08/18/17 22:03 Dose: 25 mg Thiamine HCl (Vitamin B1 Tab) 100 mg PO DAILY [facility] Last Admin: 08/19/17 10:46 Dose: 100 mg Results - Vital Signs Recent Vital Signs: Last Vital Signs Temp 97.4 F L 08/19/17 07:54 Pulse 70 08/19/17 10:47 Resp 18 08/19/17 07:54 BP 129/75 08/19/17 10:47 Pulse Ox 98 08/19/17 07:54 - Labs Result Diagrams: 08/16/17 07:34 08/16/17 07:34
--- NOTE | 2017-08-19 11:30 | CP.PCM.PN ---
Subjective - Date & Time of Evaluation Date of Evaluation: 08/19/17 Time of Evaluation: 07:10 - Subjective Subjective: Patient evaluated with Dr Vila during rounds this morning Alert and awake. Very drowsy and speech is difficult to understand. As per nurse Ativan had to be given 3 hours ago because patient becomes very agitated and aggressive at times. Afebrile. No other events reported overnight. Objective - Vital Signs/Intake and Output Vital Signs (last 24 hours): Temp Pulse Resp BP Pulse Ox 97.4 F L 70 18 129/75 98 08/19/17 07:54 08/19/17 10:47 08/19/17 07:54 08/19/17 10:47 08/19/17 07:54 - Medications Medications: Current Medications Amlodipine Besylate (Norvasc) 5 mg PO DAILY [facility] Last Admin: 08/19/17 10:45 Dose: 5 mg Carvedilol (Coreg) 25 mg PO Q12 [facility] Last Admin: 08/19/17 10:46 Dose: 25 mg Chlordiazepoxide (Librium) 25 mg PO Q8 [facility] Last Admin: 08/19/17 00:37 Dose: 25 mg Ferrous Sulfate (Feosol) 325 mg PO DAILY [facility] Last Admin: 08/19/17 10:46 Dose: 325 mg Folic Acid (Folic Acid) 1 mg PO DAILY [facility] Last Admin: 08/19/17 10:47 Dose: 1 mg Levetiracetam (Keppra) 1,000 mg PO BID [facility] Last Admin: 08/19/17 10:45 Dose: 1,000 mg Lisinopril (Zestril) 20 mg PO DAILY [facility] Last Admin: 08/19/17 10:47 Dose: 20 mg Lorazepam (Ativan) 2 mg IV Q2 PRN PRN Reason: Symptoms of alcohol withdrawl Last Admin: 08/19/17 04:28 Dose: 2 mg Quetiapine Fumarate (Seroquel) 50 mg PO HS [facility] Quetiapine Fumarate (Seroquel) 50 mg PO Q8 PRN PRN Reason: Agitation Thiamine HCl (Vitamin B1 Tab) 100 mg PO DAILY [facility] Last Admin: 08/19/17 10:46 Dose: 100 mg - Labs Labs: 08/16/17 07:34 08/16/17 07:34 - Constitutional Appears: Non-toxic, Chronically Ill - Eye Exam Eye Exam: PERRL - ENT Exam ENT Exam: Mucous Membranes Moist - Respiratory Exam Respiratory Exam: Clear to Ausculation Bilateral, NORMAL BREATHING PATTERN. absent: Decreased Breath Sounds, Rales - Cardiovascular Exam Cardiovascular Exam: +S1, +S2. absent: Gallop - GI/Abdominal Exam GI & Abdominal Exam: Soft, Normal Bowel Sounds. absent: Tenderness - Extremities Exam Extremities Exam: Normal Capillary Refill. absent: Pedal Edema - Neurological Exam Neurological Exam: Alert, Awake Additional comments: move all 4. - Psychiatric Exam Psychiatric exam: Agitated (at times) - Skin Skin Exam: Warm Assessment and Plan - Assessment and Plan (Free Text) Assessment: Seizure disorder on Etoh abuser patient Small ICH Neuro consult appreciated C/W Keppra, Librium and Ativan PRN Agitation Started on Seroquel 25 mg HS Yesterday Persistently becoming agitated needs 1 to 1 obs Psych consult for further recs.
--- NOTE | 2017-08-20 09:31 | CP.PCM.PN ---
Subjective - Date & Time of Evaluation Date of Evaluation: 08/20/17 Time of Evaluation: 07:35 - Subjective Subjective: Evaluated with DR Vila during morning rounds. Patient still developing episodes of agitation mostly overnight. Was given ativan PRN. Seems drowsy every morning and c/w indifference to engage in a conversation. Denies CP, SOB, palpitations. Objective - Vital Signs/Intake and Output Vital Signs (last 24 hours): Temp Pulse Resp BP Pulse Ox 98.1 F 85 17 156/86 H 100 08/20/17 08:59 08/20/17 08:59 08/20/17 08:59 08/20/17 08:59 08/20/17 08:59 - Medications Medications: Current Medications Amlodipine Besylate (Norvasc) 5 mg PO DAILY [facility] Last Admin: 08/19/17 10:45 Dose: 5 mg Carvedilol (Coreg) 25 mg PO Q12 [facility] Last Admin: 08/19/17 22:01 Dose: 25 mg Chlordiazepoxide (Librium) 25 mg PO Q8 [facility] Last Admin: 08/20/17 00:29 Dose: 25 mg Ferrous Sulfate (Feosol) 325 mg PO DAILY [facility] Last Admin: 08/19/17 10:46 Dose: 325 mg Folic Acid (Folic Acid) 1 mg PO DAILY [facility] Last Admin: 08/19/17 10:47 Dose: 1 mg Levetiracetam (Keppra) 1,000 mg PO BID [facility] Last Admin: 08/19/17 17:00 Dose: 1,000 mg Lisinopril (Zestril) 20 mg PO DAILY [facility] Last Admin: 08/19/17 10:47 Dose: 20 mg Lorazepam (Ativan) 2 mg IV Q2 PRN PRN Reason: Seizure activity Quetiapine Fumarate (Seroquel) 50 mg PO HS [facility] Last Admin: 08/19/17 21:50 Dose: 50 mg Quetiapine Fumarate (Seroquel) 50 mg PO Q8 PRN PRN Reason: Agitation Thiamine HCl (Vitamin B1 Tab) 100 mg PO DAILY [facility] Last Admin: 08/19/17 10:46 Dose: 100 mg - Labs Labs: 08/16/17 07:34 08/16/17 07:34 - Constitutional Appears: Non-toxic, Chronically Ill - Eye Exam Eye Exam: PERRL - ENT Exam ENT Exam: Mucous Membranes Moist - Respiratory Exam Respiratory Exam: Clear to Ausculation Bilateral, NORMAL BREATHING PATTERN. absent: Decreased Breath Sounds, Rales, Respiratory Distress - Cardiovascular Exam Cardiovascular Exam: REGULAR RHYTHM, +S1, +S2. absent: Gallop - GI/Abdominal Exam GI & Abdominal Exam: Soft, Normal Bowel Sounds. absent: Distended, Guarding, Tenderness, Rebound - Neurological Exam Neurological Exam: Alert, Awake, Oriented x3 - Psychiatric Exam Psychiatric exam: Flat Affect - Skin Skin Exam: Normal Color, Warm Assessment and Plan - Assessment and Plan (Free Text) Assessment: Seizure disorder/ETOH abuse/ETOH withdrawal C/W Keppra BID No new seizures episodes Neurology consult appreciated Becomes agitated at times and needs sedation and 1 to 1 obs. Unable to DC patient due to 1 to 1 protocol Evaluated by psych Yesterday. Seroquel added PRN and Schd dose increased. Ativan was given for agitation instead of Seroquel overnight Psychology consult ordered as per Psychiatry recs Will modify Ativan order for seizures activity only Patient already on Librium Q8h and withdrawal symptoms should be decreasing already since patient have been admitted for 1 week already Seroquel for agitation Revaluate tomorrow
--- NOTE | 2017-08-20 09:47 | CP.PCM.PN ---
Subjective - Date & Time of Evaluation Date of Evaluation: 08/20/17 Time of Evaluation: 09:47 - Subjective Subjective: Mr. Sol was seen and examined at the bedside. He is very awake,with episode of confusion, and unable to answer any questions or follow commands. He moves all extremities spontaneously and currently 1:1 sitter for patient safety. He is not in any kind of distress. Upon awaken, pt has the episode of screaming but was able to redirect by the staff. CTA of the head showed no evidence of occlusion or significant stenosis visualized in the distal ICA or intracranial circulation. There is no evidence of large aneurysm or vascular malformation. Small hemorrhage within the posterior limb of the left internal capsule is less seen due to the presence of circulating intravenous contrast media.There was no untoward events overnight. Objective - Vital Signs/Intake and Output Vital Signs (last 24 hours): Temp Pulse Resp BP Pulse Ox 98.1 F 109 H 17 156/81 H 100 08/20/17 08:59 08/20/17 09:25 08/20/17 08:59 08/20/17 09:25 08/20/17 08:59 - Medications Medications: Current Medications Amlodipine Besylate (Norvasc) 5 mg PO DAILY [facility] Last Admin: 08/20/17 09:24 Dose: 5 mg Carvedilol (Coreg) 25 mg PO Q12 [facility] Last Admin: 08/20/17 09:24 Dose: 25 mg Chlordiazepoxide (Librium) 25 mg PO Q8 [facility] Last Admin: 08/20/17 09:33 Dose: 25 mg Ferrous Sulfate (Feosol) 325 mg PO DAILY [facility] Last Admin: 08/20/17 09:24 Dose: 325 mg Folic Acid (Folic Acid) 1 mg PO DAILY [facility] Last Admin: 08/20/17 09:24 Dose: 1 mg Levetiracetam (Keppra) 1,000 mg PO BID [facility] Last Admin: 08/20/17 09:25 Dose: 1,000 mg Lisinopril (Zestril) 20 mg PO DAILY [facility] Last Admin: 08/20/17 09:25 Dose: 20 mg Lorazepam (Ativan) 2 mg IV Q2 PRN PRN Reason: Seizure activity Quetiapine Fumarate (Seroquel) 50 mg PO HS [facility] Last Admin: 08/19/17 21:50 Dose: 50 mg Quetiapine Fumarate (Seroquel) 50 mg PO Q8 PRN PRN Reason: Agitation Thiamine HCl (Vitamin B1 Tab) 100 mg PO DAILY [facility] Last Admin: 08/20/17 09:24 Dose: 100 mg - Labs Labs: 08/16/17 07:34 08/16/17 07:34 - Constitutional Appears: No Acute Distress - Head Exam Head Exam: NORMAL INSPECTION - Neurological Exam Neurological Exam: Awake Neuro motor strength exam: Left Upper Extremity: 5, Right Upper Extremity: 5, Left Lower Extremity: 5, Right Lower Extremity: 5 Additional comments: He is very awake,with episode of confusion, but unable to answer any questions or follow commands. He moves all extremities spontaneously Assessment and Plan (1) Seizure Assessment & Plan: Case discussed with Dr. Figueroa, continue all current medical regimen. Pending EEG. Status: Acute
[2017-08-20] MEDS: Valproic Acid 250 mg/5 ml Oral Syrup (60 ml) PO SCH (15:14)
[2017-08-21] MEDS: Valproic Acid 250 mg/5 ml Oral Syrup (60 ml) PO SCH (00:27)
[2017-08-21 06:14] LABS: HEMOGLOBIN 9.8 g/dL (12.0-18.0); MEAN CELL VOLUME 91.2 fl (80.0-94.0); MEAN CORPUSCULAR HEMOGLOBIN 29.2 pg (27.0-31.0); RBC 3.35 Mil/uL (4.40-5.90); RED CELL DISTRIBUTION WIDTH 16.8 % (11.5-14.5); WHITE BLOOD COUNT 7.1 K/uL (4.8-10.8)
[2017-08-21 07:15] LABS: BLOOD UREA NITROGEN 34 mg/dl (9-20); CALCIUM 8.4 mg/dL (8.4-10.2); GFR AFRICAN-AMERICAN > 60; GFR NON-AFRICAN AMERICAN > 60
--- NOTE | 2017-08-21 09:01 | CP.PCM.PN ---
Subjective - Date & Time of Evaluation Date of Evaluation: 08/21/17 Time of Evaluation: 07:00 - Subjective Subjective: Evaluated with Dr Vila during rounds. Patient is becoming agitated overnight at times. Required 1 dose of librium and 1 of ativan overnight. Drowsy this morning and with lack of interest in engaging in a conversation. Afebrile. No signs of etoh withdrawal. Objective - Vital Signs/Intake and Output Vital Signs (last 24 hours): Temp Pulse Resp BP Pulse Ox 97.3 F L 76 18 122/71 98 08/21/17 07:58 08/21/17 07:58 08/21/17 07:58 08/21/17 07:58 08/21/17 07:58 - Medications Medications: Current Medications Amlodipine Besylate (Norvasc) 5 mg PO DAILY [facility] Last Admin: 08/20/17 09:24 Dose: 5 mg Carvedilol (Coreg) 25 mg PO Q12 [facility] Last Admin: 08/20/17 21:26 Dose: 25 mg Chlordiazepoxide (Librium) 25 mg PO Q12 PRN PRN Reason: Agitation Last Admin: 08/21/17 00:26 Dose: 25 mg Ferrous Sulfate (Feosol) 325 mg PO DAILY [facility] Last Admin: 08/20/17 09:24 Dose: 325 mg Folic Acid (Folic Acid) 1 mg PO DAILY [facility] Last Admin: 08/20/17 09:24 Dose: 1 mg Levetiracetam (Keppra) 750 mg PO BID [facility] Last Admin: 08/20/17 17:12 Dose: 750 mg Lisinopril (Zestril) 20 mg PO DAILY [facility] Last Admin: 08/20/17 09:25 Dose: 20 mg Lorazepam (Ativan) 1 mg IV Q4 PRN PRN Reason: Agitation Last Admin: 08/21/17 04:19 Dose: 1 mg Quetiapine Fumarate (Seroquel) 25 mg PO HS [facility] Last Admin: 08/20/17 21:26 Dose: 25 mg Quetiapine Fumarate (Seroquel) 25 mg PO Q8 PRN PRN Reason: Agitation Thiamine HCl (Vitamin B1 Tab) 100 mg PO DAILY [facility] Last Admin: 08/20/17 09:24 Dose: 100 mg Valproate Sodium (Depakene Oral Syrup) 500 mg PO Q12 [facility] Last Admin: 08/21/17 00:27 Dose: 500 mg - Labs Labs: 08/21/17 05:30 08/21/17 05:30 - Constitutional Appears: Non-toxic, Chronically Ill - Eye Exam Eye Exam: PERRL - ENT Exam ENT Exam: Mucous Membranes Moist - Respiratory Exam Respiratory Exam: Clear to Ausculation Bilateral, NORMAL BREATHING PATTERN. absent: Decreased Breath Sounds, Rales, Wheezes, Respiratory Distress, Stridor - Cardiovascular Exam Cardiovascular Exam: REGULAR RHYTHM, +S1, +S2. absent: Gallop - GI/Abdominal Exam GI & Abdominal Exam: Soft, Normal Bowel Sounds. absent: Firm, Guarding, Rigid, Tenderness, Rebound - Neurological Exam Neurological Exam: Alert, Awake - Psychiatric Exam Psychiatric exam: Flat Affect - Skin Skin Exam: Normal Color, Warm Assessment and Plan - Assessment and Plan (Free Text) Assessment: Awaiting Psychology eval Will DC 1 to 1 and monitor patient We think patient would benefit from discontinuing ativan and remain on Seroquel/ Librium PRN for agitation Chances of ETOH withdrawal symptoms very low since patient has been in the hosp for 1 week. Seizure disorder stable: On Keppra and Depakote. Neuro consult appreciated.
[2017-08-21] MEDS: Valproic Acid 250 mg/5 ml UD Cup PO SCH ×2 (09:50→22:20)
--- NOTE | 2017-08-21 10:09 | CP.PCM.CON ---
History of Present Illness - History of Present Illness History of Present Illness: Pt is a 51 year old male admitted to [facility] and referred to the tag writer for evaluation. med history positive for "recent bleed", and epilepsy according to the patient. See medical record for complete medical history/medication list. Social History: pt reported living alone. He denied having had been , 0 children. According to nursing staff, his mother resides in [place] and siblings as well. Ed.Voc: pt raised in [facility], he left school in the 10th grade. Pt reported working in [employer] for a long period of time. He acknoweldged disability for 10+ years. Pt reported a psych history for "anger" though was unable to provide details. He denied drug abuse. Pt reported alcohol abuse prior to admission. 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 MSE: Pt alert, oriented to year, not month, day/date, affect was constricted and mood irritable, no psychosis, no si no hi ideation, no history of hallucinations. Dx: Alcohol Dependence Mood disorder Plan: Psychiatric monitoring for irritability/agitation continued supportive therapy Sub acute rehab where his discharge/future needs can be determined Thank you for this referral, Dr. Montse De Oca Past Patient History - Infectious Disease Hx of Infectious Diseases: None - Past Medical History & Family History Past Medical History?: Yes - Past Social History Smoking Status: Never Smoked - CARDIAC Hx Hypertension: Yes - PULMONARY Hx Tuberculosis: No - NEUROLOGICAL Hx Seizures: Yes (Reported but not witnessed) - HEENT Hx HEENT Problems: No - ENDOCRINE/METABOLIC Hx Endocrine Disorders: No - HEMATOLOGICAL/ONCOLOGICAL Hx Anemia: Yes - INTEGUMENTARY Hx Dermatological Problems: (.) - MUSCULOSKELETAL/RHEUMATOLOGICAL Hx Musculoskeletal Disorders: Yes Hx Falls: Yes - GASTROINTESTINAL Hx Gastritis: Yes - GENITOURINARY/GYNECOLOGICAL Hx Genitourinary Disorders: No - PSYCHIATRIC Hx Bipolar Disorder: Yes Hx Substance Use: No - SURGICAL HISTORY Hx Orthopedic Surgery: Yes Hx Splenectomy: Yes Other/Comment: "left arm" - ANESTHESIA Hx Anesthesia: Yes Hx Anesthesia Reactions: No Meds Allergies/Adverse Reactions: Allergies Allergy/AdvReac Type Severity Reaction Status Date / Time No Known Allergies Allergy Verified 08/12/17 18:35 - Medications Medications: Current Medications Amlodipine Besylate (Norvasc) 5 mg PO DAILY [facility] Last Admin: 08/21/17 09:38 Dose: 5 mg Carvedilol (Coreg) 25 mg PO Q12 [facility] Last Admin: 08/21/17 09:37 Dose: 25 mg Chlordiazepoxide (Librium) 25 mg PO Q12 PRN PRN Reason: Agitation Last Admin: 08/21/17 00:26 Dose: 25 mg Ferrous Sulfate (Feosol) 325 mg PO DAILY [facility] Last Admin: 08/21/17 09:37 Dose: 325 mg Folic Acid (Folic Acid) 1 mg PO DAILY [facility] Last Admin: 08/21/17 09:37 Dose: 1 mg Levetiracetam (Keppra) 750 mg PO BID [facility] Last Admin: 08/21/17 09:37 Dose: 750 mg Lisinopril (Zestril) 20 mg PO DAILY [facility] Last Admin: 08/21/17 09:38 Dose: 20 mg Lorazepam (Ativan) 1 mg IV Q4 PRN PRN Reason: Agitation Last Admin: 08/21/17 04:19 Dose: 1 mg Quetiapine Fumarate (Seroquel) 25 mg PO HS [facility] Last Admin: 08/20/17 21:26 Dose: 25 mg Quetiapine Fumarate (Seroquel) 25 mg PO Q8 PRN PRN Reason: Agitation Thiamine HCl (Vitamin B1 Tab) 100 mg PO DAILY [facility] Last Admin: 08/21/17 09:37 Dose: 100 mg Valproate Sodium (Depakene Oral Soln) 500 mg PO Q12 [facility] Last Admin: 08/21/17 09:50 Dose: 500 mg Results - Vital Signs Recent Vital Signs: Last Vital Signs Temp 97.3 F L 08/21/17 07:58 Pulse 76 08/21/17 09:38 Resp 18 08/21/17 07:58 BP 122/71 08/21/17 09:38 Pulse Ox 98 08/21/17 07:58 - Labs Result Diagrams: 08/21/17 05:30 08/21/17 05:30 Labs: Laboratory Results - last 24 hr 08/21/17 08/21/17 05:30 05:30 WBC 7.1 RBC 3.35 L Hgb 9.8 L Hct 30.5 L MCV 91.2 MCH 29.2 MCHC 32.0 L RDW 16.8 H Plt Count 246 Sodium 140 Potassium 4.6 Chloride 106 Carbon Dioxide 20 L Anion Gap 19 BUN 34 H Creatinine 1.1 Est GFR ( Amer) > 60 Est GFR (Non-Af Amer) > 60 Random Glucose 95 Calcium 8.4
[2017-08-21] MEDS ORDERED: Valproate 1,000 MG in Sodium Chloride 0.9% 100 ML IVPB ONE ×2 (11:00→11:15)
--- NOTE | 2017-08-21 11:12 | CP.PCM.PN ---
Subjective - Date & Time of Evaluation Date of Evaluation: 08/21/17 Time of Evaluation: 11:09 - Subjective Subjective: Mr. Sol was seen and examined at the bedside. He is alert, oriented, but with episode of agitation and combative. It took three staff for him to go back to bed. He denies any headache, dizziness, able to move all extremities. He also has agitation and restlessness during the night that he was given ativan and 1:1 sitter was maintained. This morning, he was more alert, follows all commands in which 1:1 sitter was discontinue. Objective - Vital Signs/Intake and Output Vital Signs (last 24 hours): Temp Pulse Resp BP Pulse Ox 97.3 F L 76 18 122/71 98 08/21/17 07:58 08/21/17 09:38 08/21/17 07:58 08/21/17 09:38 08/21/17 07:58 - Medications Medications: Current Medications Amlodipine Besylate (Norvasc) 5 mg PO DAILY [facility] Last Admin: 08/21/17 09:38 Dose: 5 mg Carvedilol (Coreg) 25 mg PO Q12 [facility] Last Admin: 08/21/17 09:37 Dose: 25 mg Chlordiazepoxide (Librium) 25 mg PO Q12 PRN PRN Reason: Agitation Last Admin: 08/21/17 00:26 Dose: 25 mg Ferrous Sulfate (Feosol) 325 mg PO DAILY [facility] Last Admin: 08/21/17 09:37 Dose: 325 mg Folic Acid (Folic Acid) 1 mg PO DAILY [facility] Last Admin: 08/21/17 09:37 Dose: 1 mg Valproate Sodium 1,000 mg/ (Sodium Chloride) 110 mls @ 1,000 mls/hr IVPB ONCE ONE Stop: 08/21/17 11:21 Levetiracetam (Keppra) 500 mg PO Q12 [facility] Lisinopril (Zestril) 20 mg PO DAILY [facility] Last Admin: 08/21/17 09:38 Dose: 20 mg Lorazepam (Ativan) 1 mg IV Q4 PRN PRN Reason: Agitation Last Admin: 08/21/17 04:19 Dose: 1 mg Quetiapine Fumarate (Seroquel) 25 mg PO HS [facility] Last Admin: 08/20/17 21:26 Dose: 25 mg Quetiapine Fumarate (Seroquel) 50 mg PO Q8 PRN PRN Reason: Agitation Thiamine HCl (Vitamin B1 Tab) 100 mg PO DAILY [facility] Last Admin: 08/21/17 09:37 Dose: 100 mg Valproate Sodium (Depakene Oral Soln) 500 mg PO Q12 [facility] Last Admin: 08/21/17 09:50 Dose: 500 mg - Labs Labs: 08/21/17 05:30 08/21/17 05:30 - Constitutional Appears: No Acute Distress - Head Exam Head Exam: NORMAL INSPECTION - Neurological Exam Neurological Exam: Alert, Awake Neuro motor strength exam: Left Upper Extremity: 4, Right Upper Extremity: 4, Left Lower Extremity: 4, Right Lower Extremity: 4 Additional comments: He is alert, oriented but with episode of agitation and restlessness.He is able to follow some simple commands. Assessment and Plan (1) Seizure Assessment & Plan: Case discussed with Dr. Velázquez, continue current medical regimen including his CIWA meds. Recommended to decrease keppra from 750 mg PO Q 12 to 500 mg PO Q 12 to alleviate some of his confusion with the goal of discontinue keppra. Since his liver enzymes are stable, recommend load him with depakote 100 mg IVPB for one dose to stabilize his mood. Recommend to monitor liver enzymes and valproic level. Status: Acute
--- NOTE | 2017-08-22 10:55 | PN ---
DATE: 08/22/2017 SUBJECTIVE: The patient is seen and examined. Interim events noted. Consults noted and appreciated. Psychology followup and interventions noted and appreciated. The patient remains in Progressive Care Unit on telemetry monitoring. Awake and oriented x3, sleepy. Denies any specific complaints. No chest pain. No shortness of breath. No requiring sedation. PHYSICAL EXAMINATION: GENERAL: The patient is in no acute distress. VITAL SIGNS: Stable. HEART: S1 and S2, normal and regular. LUNGS: Good bilateral air exchange. ABDOMEN: Soft and nontender. EXTREMITIES: No edema. No calf swelling. No tenderness. No acute ischemia. FISCAL SPECIALIST: Exam is essentially unchanged. DIAGNOSTIC DATA: Available diagnostic data reviewed. PLAN: Telemetry monitoring does not reveal any significant arrhythmia. Overall, the patient's general medical condition is stable. Plan as ordered. Jose Cruz Vila MD
[2017-08-22] MEDS: Valproic Acid 250 mg/5 ml UD Cup PO SCH ×2 (16:00→21:04)
--- NOTE | 2017-08-22 21:03 | CP.PCM.PCO ---
Addendum Addendum: 08/22/17 21:00 Called by nurse to eval patient after he slipped from chair and fell to floor hitting the ground with his buttocks. No acute distress, SOB, LOC, seizures. Denies pain. VS Stable. PE unremarkable. NO needs for studies at this time. Nurse will monitor patient. If needed will start 1 to 1 obs. 08/22/17 21:03
[2017-08-23 08:23] LABS: ALB/GLOB RATIO 0.6 (1.0-2.1); ALBUMIN 2.8 g/dL (3.5-5.0); ALT/SGPT 19 U/L (21-72); AST/SGOT 38 U/L (17-59); BLOOD UREA NITROGEN 29 mg/dl (9-20); CALCIUM 8.2 mg/dL (8.4-10.2); GFR AFRICAN-AMERICAN > 60; GFR NON-AFRICAN AMERICAN > 60
[2017-08-23 09:04] LABS: HEMOGLOBIN 9.9 g/dL (12.0-18.0); MEAN CELL VOLUME 90.1 fl (80.0-94.0); MEAN CORPUSCULAR HEMOGLOBIN 29.2 pg (27.0-31.0); MEAN CORPUSCULAR HGB CONC 32.4 g/dL (33.0-37.0); RBC 3.41 Mil/uL (4.40-5.90); RED CELL DISTRIBUTION WIDTH 16.8 % (11.5-14.5); WHITE BLOOD COUNT 7.6 K/uL (4.8-10.8)
[2017-08-23] MEDS: Valproic Acid 250 mg/5 ml UD Cup PO SCH ×2 (12:02→21:20)
--- NOTE | 2017-08-24 09:01 | PN ---
DATE: SUBJECTIVE: The patient is seen and examined. Interim events noted. Consults noted and appreciated. Case discussed with neurologist. The patient is sleepy and arousable, but according to the nursing staff, the patient was agitated all night. No chest pain. No shortness of breath. No specific complaint. PHYSICAL EXAMINATION: GENERAL: The patient is in no acute distress. VITAL SIGNS: Stable. HEART: S1 and S2, normal and regular. LUNGS: Good bilateral air exchange. ABDOMEN: Soft and nontender. EXTREMITIES: No edema. No calf swelling. No tenderness. No acute ischemia. CENTRAL NERVOUS SYSTEM: Exam is essentially unchanged. DIAGNOSTIC DATA: Available diagnostic data reviewed. Telemetry monitoring does not reveal any significant arrhythmia does have occasional tachycardia. ASSESSMENT AND PLAN: Overall, the patient's medical condition is stable. Plan as ordered. Jose Cruz Vila MD
--- NOTE | 2017-08-24 09:33 | CP.PCM.PN ---
Subjective - Date & Time of Evaluation Date of Evaluation: 08/24/17 Time of Evaluation: 09:29 - Subjective Subjective: Mr. Sol was seen and examined at the bedside. He is sleepy, but able to verbalize person ( Trump), place ( [facility]). He is confused to time ( 2016). He opens his eyes with verbal and tactile stimuli. He is able to follow some commands such as opening his mouth, moving all extremities, and squeezing his hand. He had episode last night of being restless, agitated, and difficulty to re-direct. Telesitter was discontinued due to patient inability to response and follow any request from the telesitter person. He was given both seroquel and librium. Objective - Vital Signs/Intake and Output Vital Signs (last 24 hours): Temp Pulse Resp BP Pulse Ox 97.5 F L 82 18 131/73 95 08/24/17 08:24 08/24/17 08:24 08/24/17 08:24 08/24/17 08:24 08/24/17 08:24 - Medications Medications: Current Medications Acetaminophen (Tylenol 325mg Tab) 650 mg PO Q6 PRN PRN Reason: Pain, moderate (4-7) Amlodipine Besylate (Norvasc) 5 mg PO DAILY [facility] Last Admin: 08/23/17 12:02 Dose: 5 mg Carvedilol (Coreg) 25 mg PO Q12 [facility] Last Admin: 08/23/17 21:24 Dose: 25 mg Chlordiazepoxide (Librium) 25 mg PO Q12 PRN PRN Reason: Agitation Last Admin: 08/24/17 03:14 Dose: 25 mg Ferrous Sulfate (Feosol) 325 mg PO DAILY [facility] Last Admin: 08/23/17 12:02 Dose: 325 mg Folic Acid (Folic Acid) 1 mg PO DAILY [facility] Last Admin: 08/23/17 12:02 Dose: 1 mg Levetiracetam (Keppra) 500 mg PO Q12 [facility] Last Admin: 08/23/17 21:20 Dose: 500 mg Lisinopril (Zestril) 20 mg PO DAILY [facility] Last Admin: 08/23/17 12:03 Dose: 20 mg Quetiapine Fumarate (Seroquel) 25 mg PO HS [facility] Last Admin: 08/23/17 21:21 Dose: 25 mg Quetiapine Fumarate (Seroquel) 50 mg PO Q8 PRN PRN Reason: Agitation Last Admin: 08/24/17 02:01 Dose: 50 mg Thiamine HCl (Vitamin B1 Tab) 100 mg PO DAILY [facility] Last Admin: 08/23/17 12:03 Dose: 100 mg Valproate Sodium (Depakene Oral Soln) 500 mg PO Q12 [facility] Last Admin: 08/23/17 21:20 Dose: 500 mg - Labs Labs: 08/23/17 06:25 08/23/17 06:25 - Constitutional Appears: No Acute Distress - Head Exam Head Exam: NORMAL INSPECTION - Neurological Exam Neurological Exam: Alert, Awake Neuro motor strength exam: Left Upper Extremity: 5, Right Upper Extremity: 5, Left Lower Extremity: 5, Right Lower Extremity: 5 Additional comments: He is alert, oriented x 2, follows some commands. Assessment and Plan (1) Seizure Assessment & Plan: Case discussed with Dr. Velázquez, continue current medical regimen including his CIWA meds. Recommend to discontinue keppra to alleviate some of his confusion. Since his liver enzymes are stable, Recommend to monitor liver enzymes and valproic level. Recommend Benadryl 50 mg PO Q 8 PRN can be tried for agitation. Continue supportive care. Status: Acute
[2017-08-24] MEDS: Valproic Acid 250 mg/5 ml UD Cup PO SCH ×2 (10:18→23:34)
[2017-08-25 08:17] VITALS: RESP 20
[2017-08-25] MEDS: Valproic Acid 250 mg/5 ml UD Cup PO SCH (08:35)
--- NOTE | 2017-08-25 13:24 | CP.PCM.PN ---
Subjective - Date & Time of Evaluation Date of Evaluation: 08/25/17 Time of Evaluation: 07:00 - Subjective Subjective: Stable medically. Agitated and combative at times and needs to be medicated PRN. No acute medical changes in patient status. Non cooperative Objective - Vital Signs/Intake and Output Vital Signs (last 24 hours): Temp Pulse Resp BP Pulse Ox 98.1 F 68 20 110/70 97 08/25/17 12:00 08/25/17 12:00 08/25/17 12:00 08/25/17 12:00 08/25/17 12:00 - Medications Medications: Current Medications Acetaminophen (Tylenol 325mg Tab) 650 mg PO Q6 PRN PRN Reason: Pain, moderate (4-7) Amlodipine Besylate (Norvasc) 5 mg PO DAILY [facility] Last Admin: 08/25/17 08:37 Dose: 5 mg Carvedilol (Coreg) 25 mg PO Q12 [facility] Last Admin: 08/25/17 08:36 Dose: 25 mg Chlordiazepoxide (Librium) 25 mg PO Q12 PRN PRN Reason: Agitation Last Admin: 08/24/17 03:14 Dose: 25 mg Diphenhydramine HCl (Benadryl) 50 mg PO Q8 [facility] Last Admin: 08/25/17 08:36 Dose: 50 mg Ferrous Sulfate (Feosol) 325 mg PO DAILY [facility] Last Admin: 08/25/17 08:36 Dose: 325 mg Folic Acid (Folic Acid) 1 mg PO DAILY [facility] Last Admin: 08/25/17 08:36 Dose: 1 mg Lisinopril (Zestril) 20 mg PO DAILY [facility] Last Admin: 08/25/17 08:37 Dose: 20 mg Quetiapine Fumarate (Seroquel) 25 mg PO HS [facility] Last Admin: 08/24/17 23:35 Dose: 25 mg Thiamine HCl (Vitamin B1 Tab) 100 mg PO DAILY [facility] Last Admin: 08/25/17 12:43 Dose: Not Given Valproate Sodium (Depakene Oral Soln) 500 mg PO Q12 [facility] Last Admin: 08/25/17 08:35 Dose: 500 mg - Labs Labs: 08/23/17 06:25 08/23/17 06:25 - Constitutional Appears: Non-toxic, Chronically Ill - Eye Exam Eye Exam: PERRL - ENT Exam ENT Exam: Mucous Membranes Moist - Respiratory Exam Respiratory Exam: Clear to Ausculation Bilateral, NORMAL BREATHING PATTERN. absent: Decreased Breath Sounds, Rales, Rhonchi, Wheezes - Cardiovascular Exam Cardiovascular Exam: REGULAR RHYTHM, +S1, +S2. absent: Gallop - GI/Abdominal Exam GI & Abdominal Exam: Soft, Normal Bowel Sounds. absent: Tenderness - Extremities Exam Extremities Exam: Normal Capillary Refill. absent: Calf Tenderness - Neurological Exam Neurological Exam: Alert, Awake. absent: Oriented x3 - Psychiatric Exam Psychiatric exam: Agitated (at times) - Skin Skin Exam: Normal Color, Warm Assessment and Plan - Assessment and Plan (Free Text) Assessment: Seizures disorder controlled Neurology consult appreciated Agitated at times that respond to pRN meds. medically cleared for DC awaiting placement
--- NOTE | 2017-08-25 13:50 | PN ---
DATE: 08/22/2017 SUBJECTIVE: The patient is seen and examined. Interim events noted. The patient has . The patient is sleeping, arousable, but does not want to get into conversation. Denies any specific complaints. No other specific issues reported. PHYSICAL EXAMINATION: GENERAL: Physical examination is limited, but the patient is in no acute distress. VITAL SIGNS: Stable. HEART: S1 and S2, normal and regular. LUNGS: Good bilateral air exchange. ABDOMEN: Soft and nontender. EXTREMITIES: No edema, no calf swelling, no tenderness. No acute ischemia. FIRER PORTABLE BOILER: Essentially unchanged. FIRER PORTABLE BOILER exam is not possible as the patient . DIAGNOSTIC DATA: Available diagnostic data reviewed. Telemetry monitoring does not show any significant arrhythmias. Overall, the patient's medical condition is stable. PLAN: Plan as ordered. Jose Cruz Vila MD
[2017-08-25 16:16] VITALS: BP 145/80; PULSE 70; TEMP 97.7; O2SAT 98
== END 2017-08-25 11:00 | DRG 100 ==
LOC: H.ER 17:55 → H.ERHOLD 21:30 → H.TEL 08-14 00:46
PROVIDERS: ADMIT Internal Medicine; ATTEND Internal Medicine
DX: G40.909 Epilepsy, unspecified, not intractable, without status epilepticus (principal); I61.8 Other nontraumatic intracerebral hemorrhage; F10.24 Alcohol dependence with alcohol-induced mood disorder; D64.9 Anemia, unspecified; F10.220 Alcohol dependence with intoxication, uncomplicated; Y90.7 Blood alcohol level of 200-239 mg/100 ml; I10 Essential (primary) hypertension; K29.70 Gastritis, unspecified, without bleeding; R45.1 Restlessness and agitation

== ENCOUNTER 2018-01-07 19:10 | Inpatient (IN) | payer MEDICARE, MEDICAID ==
[2018-01-07 19:18] VITALS: BMI 31.6
[2018-01-07 21:01] LABS: BASO # 0.1 K/uL (0.0-0.2); BASO % 1.2 % (0.0-2.0); EOS # 0.2 K/uL (0.0-0.7); HEMOGLOBIN 10.2 g/dL (12.0-18.0); LYMPH % 9.8 % (20.0-40.0); MEAN CELL VOLUME 89.7 fl (80.0-94.0); MEAN CORPUSCULAR HEMOGLOBIN 28.1 pg (27.0-31.0); MEAN CORPUSCULAR HGB CONC 31.3 g/dL (33.0-37.0); MEAN PLATELET VOLUME 9.7 fl (7.2-11.7); MONO # 3.2 K/uL (0.0-0.8); MONO % 32.1 % (0.0-10.0); NEUT # 5.4 K/uL (1.8-7.0); NEUT % 54.9 % (50.0-75.0); PLATELET COUNT 276 K/uL (130-400); RBC 3.62 Mil/uL (4.40-5.90); RED CELL DISTRIBUTION WIDTH 18.8 % (11.5-14.5); WHITE BLOOD COUNT 9.8 K/uL (4.8-10.8)
--- NOTE | 2018-01-07 21:05 | ED PDOC ---
HPI: Psych/Substance Abuse Time Seen by Provider: 01/07/18 19:37 Chief Complaint (Nursing): Psychiatric Evaluation Chief Complaint (Provider): Crisis evaluation History/Exam Limitations: no limitations Onset/Duration Of Symptoms: Days Additional History Per: [facility] Additional Complaint(s): 52yo male with history of bipolar disorder, alcoholism, hepatic encephalopathy, sent to ER from [facility] for evaluation as patient was noted to be verbally and physically abusive to staff. Patient was also recently evaluated at [facility] [place] and discharged home. Patient is well known for multiple prior visits due to alcohol intoxication. Patient currently offers no medical complaints. Past Medical History Reviewed: Historical Data, Nursing Documentation, Vital Signs Vital Signs: Last Vital Signs Temp 98.4 F 01/07/18 19:17 Pulse 76 01/07/18 19:17 Resp 16 01/07/18 19:17 BP 129/83 01/07/18 19:17 Pulse Ox 98 01/07/18 19:17 - Medical History PMH: Anemia, Anxiety, Bipolar Disorder, Gastritis, HTN, End Stage Renal Disease , Chronic Kidney Disease, Seizures (Reported but not witnessed) Denies: Diabetes, Hepatitis, HIV, Kidney Stones, Sexually Transmitted Disease - Surgical History Surgical History: Hernia Repair (b/l inguinal) - Family History Family History: States: Unknown Family Hx - Immunization History Hx Tetanus Toxoid Vaccination: No Hx Influenza Vaccination: No Hx Pneumococcal Vaccination: No - Home Medications Home Medications: Ambulatory Orders Medication Instructions Recorded Acetaminophen [Tylenol 325mg tab] 650 mg PO Q4 PRN 12/30/17 Acetaminophen [Tylenol 325mg tab] 650 mg PO Q4 PRN 12/30/17 Ascorbic Acid [Vitamin C 500 mg 500 mg PO DAILY 12/30/17 Tab] Calcium Acetate [Phoslo] 667 mg PO TID 12/30/17 Carvedilol [Coreg] 12.5 mg PO Q12 12/30/17 Divalproex [Depakote DR] 250 mg PO BID 12/30/17 Ferrous Sulfate [Feosol] 325 mg PO DAILY 12/30/17 Folic Acid 1 mg PO DAILY 12/30/17 Furosemide [Lasix] 40 mg PO DAILY 12/30/17 Insulin Lispro [humALOG] 2 - 10 unit SC ACHS 12/30/17 LORazepam [Ativan] 0.5 mg PO Q8 PRN 12/30/17 Levetiracetam [Keppra] 750 mg PO Q12 12/30/17 Pantoprazole Sodium [Protonix] 40 mg PO DAILY 12/30/17 Prednisone [Deltasone] 20 mg PO DAILY 12/30/17 Thiamine HCl [Vitamin B-1] 100 mg PO DAILY 12/30/17 Vitamin B Complex/Vit C/Folic 1 tab PO DAILY 12/30/17 [Nephro-Yolie] Zinc Oxide [Desitin Original] 1 appl TOP DAILY 12/30/17 oxyCODONE [oxyCODONE Immediate 5 mg PO Q6 PRN 12/30/17 Release Tab] Escitalopram [Lexapro] 5 mg PO DAILY tab 12/31/17 Lactulose [Enulose] 20 gm PO BID udc 12/31/17 Zinc Oxide [Boudreauxs] 1 appl TP DAILY oint 12/31/17 - Allergies Allergies/Adverse Reactions: Allergies Allergy/AdvReac Type Severity Reaction Status Date / Time No Known Allergies Allergy Verified 01/07/18 19:18 Review of Systems ROS Statement: Except As Marked, All Systems Reviewed And Found Negative Psych: Positive for: Other (agitation) Physical Exam - Reviewed Nursing Documentation Reviewed: Yes Vital Signs Reviewed: Yes - Physical Exam Appears: Positive for: Non-toxic, No Acute Distress Head Exam: Positive for: ATRAUMATIC, NORMAL INSPECTION, NORMOCEPHALIC Skin: Positive for: Normal Color Eye Exam: Positive for: Normal appearance Neck: Positive for: Supple Cardiovascular/Chest: Positive for: Regular Rate, Rhythm Respiratory: Positive for: Normal Breath Sounds Gastrointestinal/Abdominal: Positive for: Soft, Asicites (mild). Negative for: Tenderness Back: Positive for: Normal Inspection Extremity: Positive for: Normal ROM, Pedal Edema (1+ pitting edema bilateral lower leg; chronic ) Neurologic/Psych: Positive for: Alert, Oriented, Mood/Affect (calm and cooperative). Negative for: Motor/Sensory Deficits - Laboratory Results Result Diagrams: 01/07/18 20:45 01/07/18 20:45 - ECG O2 Sat by Pulse Oximetry: 98 (RA) Pulse Ox Interpretation: Normal Medical Decision Making Medical Decision Making: Impression: 52yo male presents for crisis evaluation in setting of known history of bipolar disorder and alcoholic liver disease Plan: -- Labs -- Crisis evaluation 2035 Patient seen and evaluated by crisis team and per Dr. Petersen, patient to be admitted due to bipolar disorder. 2132 Labs reviewed and are consistent with history of known liver disease. Ammonia level noted to be 105 No clinical evidence of hepatic encephalopathy noted. Findings are chronic in nature, patient to be treated with 1 dose of lactulose. Scribe Attestation: Documented by Lizzette Bullock, acting as a scribe for Inocente Lazaro MD. Provider Scribe Attestation: All medical record entries made by the Scribe were at my direction and personally dictated by me. I have reviewed the chart and agree that the record accurately reflects my personal performance of the history, physical exam, medical decision making, and the department course for this patient. I have also personally directed, reviewed, and agree with the discharge instructions and disposition. Disposition - Clinical Impression Clinical Impression: Aggressive behavior, Bipolar disorder - Disposition Disposition Time: 20:36 Condition: STABLE
[2018-01-07 21:16] LABS: ALB/GLOB RATIO 0.9 (1.0-2.1); ALBUMIN 2.8 g/dL (3.5-5.0); ALT/SGPT 29 U/L (21-72); AST/SGOT 33 U/L (17-59); BLOOD UREA NITROGEN 31 mg/dl (9-20); GFR AFRICAN-AMERICAN 16; GFR NON-AFRICAN AMERICAN 13
[2018-01-07 21:27] LABS: INR 1.3
[2018-01-07 22:37] LABS: ANISOCYTOSIS MODERATE; BANDS 2 % (0-2); LYMPHOCYTE 14 % (20-50); MICROCYTOSIS SLIGHT; MONOCYTE 18 % (0-10); NEUTROPHIL 65 % (42-75); PLATELET ESTIMATE NORMAL (NORMAL); POIKILOCYTOSIS SLIGHT; REACTIVE LYMPHOCYTES 1 % (0-0); TOTAL CELLS COUNTED 100; TOXIC GRANULATION PRESENT
[2018-01-07] MEDS ORDERED: Alum-Mag Hydrox-Simethicone Susp (30 mL) PO PRN (23:41)
[2018-01-07] MEDS ORDERED: Bismuth Subsalicylate 262 mg/15 ml Sus (240 ml) PO PRN (23:41)
[2018-01-07] MEDS ORDERED: Magnesium Hydroxide Susp 30 ml UD PO PRN (23:41)
--- NOTE | 2018-01-08 00:42 | PCM.BM ---
<AdrianneBrianRosemary Parsons - Last Filed: 01/08/18 00:43> Treatment Plan Problems - Problems identified on initial assessmt Agitated/aggressive behavior Date Initiated: 01/08/18 Time Initiated: 00:40 Assessment reference: NA Status: Active High Risk:Violence Date Initiated: 01/08/18 Time Initiated: 00:40 Assessment reference: NA Status: Active Ineffective Impulse Control Date Initiated: 01/08/18 Time Initiated: 00:41 Assessment reference: NA Treatment assets and liabiliti Patient Assests: good support system, negotiates basic needs Patient Liabilities: medical problems - Milieu Protocol Maintain good personal hygiene: daily Encourage regular showers, daily Remind patient to perform daily oral care, daily Assist patient to perform ADL's Conduct patient checks and document Observation sheet: Q15 minutes Maintain personal safety: every shift Educate patient to report safety concerns to staff, every shift Monitor environment for contraband/sharps Medication safety: Monitor for expected outcome, potential side effects: every shift, Assess barriers to learning: every shift, Assess readiness for medication education: every shift <Lorenza Glass - Last Filed: 01/11/18 08:57> - Diagnosis (1) Major depressive disorder Status: Acute Interventions: Medication management, Individual and group therapy, Psychoeducation 01/11/18 08:57 <Roberto Bro - Last Filed: 01/12/18 12:02> Family Contact Family involvement: Family/SO is involved Family contact: Patient agrees to contact, Family has been contacted by patient , Telephone contact initiated by staff Family contact name: Raul Sol [phone] Family contacted how many times per week?: 3 Family contact comment: Staff attempted to call brother, but there was no answer and no voicemail set up. - Goals for Treatment Patient goals for treatment: Pt was irritable and tired, and asked staff to leave so he could sleep, so no goals were given. Discharge/Continuing Care - Education Needs Education Needs: Patient Medication, Patient Diagnosis/Disease Process, Patient Coping Skills, Patient Anger Management skills, Patient Aftercare Safety Plan - Discharge Discharge Criteria: Tolerates medication w/o severe side effects, Free of agitation, Normal sleep pattern Discharge to:: Senior Living Facility - Treatment Team Participation Patient/Family/SO Statement: 01/12/18 12:01 Pt denied SI/HI, anxiety, and depression. Pt reported he would like to leave as he feels that his hospital room is like "a cave." Pt asked staff to leave his room so he can attempt to sleep. Discussed with Family/SO: No Was Patient/Family/SO present at Treatment Team Meeting: Yes
[2018-01-08 03:55] LABS: URINE BILIRUBIN NEGATIVE (NEGATIVE); URINE BLOOD LARGE (NEGATIVE); URINE CLARITY CLOUDY (Clear); URINE COLOR RED (YELLOW); URINE GLUCOSE (UA) NEG (Normal); URINE LEUKOCYTE ESTERASE TRACE Leu/uL (Negative); URINE PROTEIN >=500 mg/dL (NEGATIVE)
--- NOTE | 2018-01-08 06:08 | CARD ---
APPROVED REPORT Date of service: 01/07/2018 <Conclusion> Normal sinus rhythm Normal ECG
--- NOTE | 2018-01-08 08:25 | RAD ---
Date of service: 01/07/2018 HISTORY: admit COMPARISON: Portable chest 12/30/2017. FINDINGS: LUNGS: Left central venous dialysis catheter is unchanged in position. No definite interval infiltrate although inspiratory volume appears diminished bilaterally. PLEURA: No significant pleural effusion identified, no pneumothorax apparent. CARDIOVASCULAR: Cardiomegaly stable. No definite pulmonary vascular congestion. Multiple old healed bilateral rib fractures reiterated. OSSEOUS STRUCTURES: No significant abnormalities. VISUALIZED UPPER ABDOMEN: Normal. OTHER FINDINGS: None. IMPRESSION: No interval acute cardiopulmonary is appreciated. Stable cardiomegaly. No pulmonary vascular congestion.
[2018-01-08] MEDS: Multivitamin Vitamin B Complex (Nephro-Vite) Tab PO SCH (08:37)
[2018-01-08] MEDS: Pantoprazole 40 mg EC Tab PO SCH (08:38)
[2018-01-08 08:56] LABS: HDL CHOLESTEROL 23 MG/DL (30-70)
[2018-01-08] MEDS ORDERED: Calcium Acetate 667 MG Capsule PO SCH (09:00)
[2018-01-08 09:07] LABS: LDL CHOLESTEROL 58 mg/dL (0-129)
[2018-01-08 09:28] LABS: IRON 17 ug/dL (49-181)
[2018-01-08 09:37] LABS: % IRON SATURATION 8 % (20-55); TOTAL IRON BINDING CAPACITY 213 ug/dL (250-450)
--- NOTE | 2018-01-08 10:15 | CP.PCM.HP ---
History of Present Illness - History of Present Illness History of Present Illness: 52 yo M with hx liver cirrhosis, bipolar d/o, CKD, alcohol abuse, anemia, seizure disorder admitted to inpatient psychiatry unit. As per ED records, he was brought from [facility] because he was verbally and physically abusive to staff. Past Patient History - Infectious Disease Hx of Infectious Diseases: None - Past Medical History & Family History Past Medical History?: Yes - Past Social History Smoking Status: Never Smoked - CARDIAC Hx Hypertension: Yes - PULMONARY Hx Respiratory Disorders: No Hx Tuberculosis: No - NEUROLOGICAL Hx Seizures: Yes (Reported but not witnessed) - HEENT Hx HEENT Problems: No - RENAL Hx Chronic Kidney Disease: Yes Hx Kidney Stones: No - ENDOCRINE/METABOLIC Hx Endocrine Disorders: No - HEMATOLOGICAL/ONCOLOGICAL Hx Anemia: Yes Hx Human Immunodeficiency Virus (HIV): No - INTEGUMENTARY Hx Dermatological Problems: No (.) - MUSCULOSKELETAL/RHEUMATOLOGICAL Hx Musculoskeletal Disorders: Yes Hx Falls: Yes - GASTROINTESTINAL Hx Gastritis: Yes - GENITOURINARY/GYNECOLOGICAL Hx Sexually Transmitted Disorders: No - PSYCHIATRIC Hx Anxiety: Yes Hx Bipolar Disorder: Yes - SURGICAL HISTORY Hx Surgeries: Yes Hx Orthopedic Surgery: Yes Hx Splenectomy: Yes Other/Comment: dialysis access - ANESTHESIA Hx Anesthesia: Yes Hx Anesthesia Reactions: No Hx Malignant Hyperthermia: No Meds Allergies/Adverse Reactions: Allergies Allergy/AdvReac Type Severity Reaction Status Date / Time No Known Allergies Allergy Verified 01/07/18 19:18 Results - Vital Signs Recent Vital Signs: Last Vital Signs Temp 97.9 F 01/08/18 06:00 Pulse 75 01/08/18 08:33 Resp 20 01/08/18 06:00 BP 153/81 H 01/08/18 08:36 Pulse Ox 98 01/08/18 06:23 - Labs Result Diagrams: 01/07/18 20:45 01/07/18 20:45 Labs: Laboratory Results - last 24 hr 01/07/18 01/07/18 01/07/18 20:45 20:45 20:45 WBC 9.8 RBC 3.62 L Hgb 10.2 L Hct 32.4 L MCV 89.7 D MCH 28.1 MCHC 31.3 L RDW 18.8 H Plt Count 276 MPV 9.7 Neut % (Auto) 54.9 Lymph % (Auto) 9.8 L [place] % (Auto) 32.1 H Eos % (Auto) 2.0 Baso % (Auto) 1.2 Neut # (Auto) 5.4 Lymph # (Auto) 1.0 [place] # (Auto) 3.2 H Eos # (Auto) 0.2 Baso # (Auto) 0.1 Neutrophils % (Manual) 65 Band Neutrophils % 2 Lymphocytes % (Manual) 14 L Reactive Lymphs % 1 H Monocytes % (Manual) 18 H Toxic Granulation Present Platelet Estimate Normal Poikilocytosis (manual Slight Anisocytosis (manual) Moderate Microcytosis (manual) Slight PT INR APTT Sodium 136 Potassium 4.3 Chloride 98 Carbon Dioxide 28 Anion Gap 14 BUN 31 H Creatinine 4.8 H Est GFR ( Amer) 16 Est GFR (Non-Af Amer) 13 POC Glucose (mg/dL) Random Glucose 102 Calcium 8.0 L Phosphorus 4.0 Magnesium 1.9 Iron TIBC % Saturation Ferritin Total Bilirubin 0.6 AST 33 ALT 29 Alkaline Phosphatase 131 H D Ammonia 105 H* D Total Protein 5.8 L Albumin 2.8 L Globulin 3.0 Albumin/Globulin Ratio 0.9 L Triglycerides Cholesterol LDL Cholesterol Direct HDL Cholesterol Vitamin B12 Free T4 Thyroxine (T4) TSH 3rd Generation Urine Color Urine Clarity Urine pH Ur Specific [place] Urine Protein Urine Glucose (UA) Urine Ketones Urine Blood Urine Nitrate Urine Bilirubin Urine Urobilinogen Ur Leukocyte Esterase Urine RBC (Auto) Urine Microscopic WBC Alcohol, Quantitative < 10 01/07/18 01/07/18 01/08/18 20:45 20:48 03:39 WBC RBC Hgb Hct MCV MCH MCHC RDW Plt Count MPV Neut % (Auto) Lymph % (Auto) [place] % (Auto) Eos % (Auto) Baso % (Auto) Neut # (Auto) Lymph # (Auto) [place] # (Auto) Eos # (Auto) Baso # (Auto) Neutrophils % (Manual) Band Neutrophils % Lymphocytes % (Manual) Reactive Lymphs % Monocytes % (Manual) Toxic Granulation Platelet Estimate Poikilocytosis (manual Anisocytosis (manual) Microcytosis (manual) PT 14.0 H INR 1.3 APTT 34.0 Sodium Potassium Chloride Carbon Dioxide Anion Gap BUN Creatinine Est GFR ( Amer) Est GFR (Non-Af Amer) POC Glucose (mg/dL) 107 Random Glucose Calcium Phosphorus Magnesium Iron TIBC % Saturation Ferritin Total Bilirubin AST ALT Alkaline Phosphatase Ammonia Total Protein Albumin Globulin Albumin/Globulin Ratio Triglycerides Cholesterol LDL Cholesterol Direct HDL Cholesterol Vitamin B12 Free T4 Thyroxine (T4) TSH 3rd Generation Urine Color Red Urine Clarity Cloudy Urine pH 5.0 Ur Specific [place] 1.020 Urine Protein >=500 Urine Glucose (UA) Neg Urine Ketones Trace Urine Blood Large Urine Nitrate Negative Urine Bilirubin Negative Urine Urobilinogen 2.0 Ur Leukocyte Esterase Trace Urine RBC (Auto) 5554 H Urine Microscopic WBC 67 H Alcohol, Quantitative 01/08/18 01/08/18 01/08/18 07:59 07:59 08:06 WBC RBC Hgb Hct MCV MCH MCHC RDW Plt Count MPV Neut % (Auto) Lymph % (Auto) [place] % (Auto) Eos % (Auto) Baso % (Auto) Neut # (Auto) Lymph # (Auto) [place] # (Auto) Eos # (Auto) Baso # (Auto) Neutrophils % (Manual) Band Neutrophils % Lymphocytes % (Manual) Reactive Lymphs % Monocytes % (Manual) Toxic Granulation Platelet Estimate Poikilocytosis (manual Anisocytosis (manual) Microcytosis (manual) PT INR APTT Sodium Potassium Chloride Carbon Dioxide Anion Gap BUN Creatinine Est GFR ( Amer) Est GFR (Non-Af Amer) POC Glucose (mg/dL) Random Glucose Calcium Phosphorus Magnesium Iron 17 L TIBC 213 L % Saturation 8 L Ferritin 257.0 Total Bilirubin AST ALT Alkaline Phosphatase Ammonia Total Protein Albumin Globulin Albumin/Globulin Ratio Triglycerides 67 Cholesterol 96 LDL Cholesterol Direct 58 HDL Cholesterol 23 L Vitamin B12 578 Free T4 1.89 Thyroxine (T4) 7.90 TSH 3rd Generation 1.15 Urine Color Urine Clarity Urine pH Ur Specific [place] Urine Protein Urine Glucose (UA) Urine Ketones Urine Blood Urine Nitrate Urine Bilirubin Urine Urobilinogen Ur Leukocyte Esterase Urine RBC (Auto) Urine Microscopic WBC Alcohol, Quantitative
--- NOTE | 2018-01-08 10:21 | CP.PCM.CON ---
<Gala Benavides - Last Filed: 01/08/18 17:58> History of Present Illness - History of Present Illness History of Present Illness: 52 yo M with hx liver cirrhosis, bipolar d/o, CKD, alcohol abuse, anemia, seizure disorder. He was brought from [facility] because he was verbally and physically abusive to staff. Pt was evaluated by community health outreach worker in ED, and agreed to sign in to voluntary psychiatric unit. Found to have elevated ammonia level as well, received lactulose in ED. Seen this afternoon; pt laying in bed in no acute distress. States he ate some of his dinner but not everything and will eat the rest later. Denies feeling jittery, denies chest pains, trouble breathing, abdominal pain, or other discomfort at this time. Review of Systems - Review of Systems Review of Systems: as per HPI Past Patient History - Infectious Disease Hx of Infectious Diseases: None - Past Medical History & Family History Past Medical History?: Yes - Past Social History Smoking Status: Never Smoked - CARDIAC Hx Hypertension: Yes - PULMONARY Hx Respiratory Disorders: No Hx Tuberculosis: No - NEUROLOGICAL Hx Seizures: Yes (Reported but not witnessed) - HEENT Hx HEENT Problems: No - RENAL Hx Chronic Kidney Disease: Yes Hx Kidney Stones: No - ENDOCRINE/METABOLIC Hx Endocrine Disorders: No - HEMATOLOGICAL/ONCOLOGICAL Hx Anemia: Yes Hx Human Immunodeficiency Virus (HIV): No - INTEGUMENTARY Hx Dermatological Problems: No (.) - MUSCULOSKELETAL/RHEUMATOLOGICAL Hx Musculoskeletal Disorders: Yes Hx Falls: Yes - GASTROINTESTINAL Hx Gastritis: Yes - GENITOURINARY/GYNECOLOGICAL Hx Sexually Transmitted Disorders: No - PSYCHIATRIC Hx Anxiety: Yes Hx Bipolar Disorder: Yes - SURGICAL HISTORY Hx Surgeries: Yes Hx Orthopedic Surgery: Yes Hx Splenectomy: Yes Other/Comment: dialysis access - ANESTHESIA Hx Anesthesia: Yes Hx Anesthesia Reactions: No Hx Malignant Hyperthermia: No Meds Allergies/Adverse Reactions: Allergies Allergy/AdvReac Type Severity Reaction Status Date / Time No Known Allergies Allergy Verified 01/07/18 19:18 - Medications Medications: Current Medications Acetaminophen (Tylenol 325mg Tab) 650 mg PO Q4 PRN PRN Reason: Pain, moderate (4-7) Last Admin: 01/08/18 02:11 Dose: 650 mg Al Hydrox/Mg Hydrox/Simethicone (Maalox Plus 30 Ml) 30 ml PO Q4 PRN PRN Reason: Dyspepsia Ascorbic Acid (Vitamin C 500 Mg Tab) 500 mg PO DAILY [facility] Last Admin: 01/08/18 08:39 Dose: 500 mg Bismuth Subsalicylate (Pepto-Bismol) 524 mg PO Q4 PRN PRN Reason: Diarrhea Calcium Acetate (Phoslo) 667 mg PO TID [facility] Carvedilol (Coreg) 12.5 mg PO Q12 [facility] Last Admin: 01/08/18 08:33 Dose: 12.5 mg Ferrous Sulfate (Feosol) 325 mg PO DAILY [facility] Last Admin: 01/08/18 08:34 Dose: 325 mg Furosemide (Lasix) 40 mg PO DAILY [facility] Last Admin: 01/08/18 08:36 Dose: 40 mg Lactulose (Enulose) 20 gm PO BID [facility] Last Admin: 01/08/18 08:34 Dose: 20 gm Levetiracetam (Keppra) 750 mg PO Q12 [facility] Last Admin: 01/08/18 08:35 Dose: 750 mg Lorazepam (Ativan) 1 mg IM Q6 PRN PRN Reason: SEVERE AGITATION Lorazepam (Ativan) 0.5 mg PO TID PRN PRN Reason: ANXIETY/AGITATION Last Admin: 01/08/18 10:03 Dose: 0.5 mg Magnesium Hydroxide (Milk Of Magnesia) 30 ml PO HS PRN PRN Reason: Constipation Pantoprazole Sodium (Protonix Ec Tab) 40 mg PO DAILY [facility] Last Admin: 01/08/18 08:38 Dose: 40 mg Thiamine HCl (Vitamin B1 Tab) 100 mg PO DAILY [facility] Last Admin: 01/08/18 08:38 Dose: 100 mg Vitamin B Complex/Vit C/Folic Acid (Nephro-Yolie) 1 tab PO DAILY [facility] Last Admin: 01/08/18 08:37 Dose: 1 tab Physical Exam - Constitutional Appears: Non-toxic, No Acute Distress - ENT Exam ENT Exam: Mucous Membranes Moist Additional comments: no tongue fasciculation - Respiratory Exam Respiratory Exam: Clear to Auscultation Bilateral, NORMAL BREATHING PATTERN. absent: Wheezes, Respiratory Distress - Cardiovascular Exam Cardiovascular Exam: REGULAR RHYTHM, +S1, +S2 - GI/Abdominal Exam GI & Abdominal Exam: Normal Bowel Sounds. absent: Tenderness - Extremities Exam Extremities exam: Negative for: calf tenderness Additional comments: b/l edema - Neurological Exam Neurological exam: Alert Additional comments: no asterixis - Skin Skin Exam: Dry, Warm Results - Vital Signs Recent Vital Signs: Last Vital Signs Temp 97.9 F 01/08/18 06:00 Pulse 75 01/08/18 08:33 Resp 20 01/08/18 06:00 BP 153/81 H 01/08/18 08:36 Pulse Ox 98 01/08/18 06:23 - Labs Result Diagrams: 01/08/18 12:15 01/07/18 20:45 Labs: Laboratory Results - last 24 hr 01/07/18 01/07/18 01/07/18 20:45 20:45 20:45 WBC 9.8 RBC 3.62 L Hgb 10.2 L Hct 32.4 L MCV 89.7 D MCH 28.1 MCHC 31.3 L RDW 18.8 H Plt Count 276 MPV 9.7 Neut % (Auto) 54.9 Lymph % (Auto) 9.8 L [place] % (Auto) 32.1 H Eos % (Auto) 2.0 Baso % (Auto) 1.2 Neut # (Auto) 5.4 Lymph # (Auto) 1.0 [place] # (Auto) 3.2 H Eos # (Auto) 0.2 Baso # (Auto) 0.1 Neutrophils % (Manual) 65 Band Neutrophils % 2 Lymphocytes % (Manual) 14 L Reactive Lymphs % 1 H Monocytes % (Manual) 18 H Toxic Granulation Present Platelet Estimate Normal Poikilocytosis (manual Slight Anisocytosis (manual) Moderate Microcytosis (manual) Slight PT INR APTT Sodium 136 Potassium 4.3 Chloride 98 Carbon Dioxide 28 Anion Gap 14 BUN 31 H Creatinine 4.8 H Est GFR ( Amer) 16 Est GFR (Non-Af Amer) 13 POC Glucose (mg/dL) Random Glucose 102 Calcium 8.0 L Phosphorus 4.0 Magnesium 1.9 Iron TIBC % Saturation Ferritin Total Bilirubin 0.6 AST 33 ALT 29 Alkaline Phosphatase 131 H D Ammonia 105 H* D Total Protein 5.8 L Albumin 2.8 L Globulin 3.0 Albumin/Globulin Ratio 0.9 L Triglycerides Cholesterol LDL Cholesterol Direct HDL Cholesterol Vitamin B12 Free T4 Thyroxine (T4) TSH 3rd Generation Urine Color Urine Clarity Urine pH Ur Specific [place] Urine Protein Urine Glucose (UA) Urine Ketones Urine Blood Urine Nitrate Urine Bilirubin Urine Urobilinogen Ur Leukocyte Esterase Urine RBC (Auto) Urine Microscopic WBC Alcohol, Quantitative < 10 01/07/18 01/07/18 01/08/18 20:45 20:48 03:39 WBC RBC Hgb Hct MCV MCH MCHC RDW Plt Count MPV Neut % (Auto) Lymph % (Auto) [place] % (Auto) Eos % (Auto) Baso % (Auto) Neut # (Auto) Lymph # (Auto) [place] # (Auto) Eos # (Auto) Baso # (Auto) Neutrophils % (Manual) Band Neutrophils % Lymphocytes % (Manual) Reactive Lymphs % Monocytes % (Manual) Toxic Granulation Platelet Estimate Poikilocytosis (manual Anisocytosis (manual) Microcytosis (manual) PT 14.0 H INR 1.3 APTT 34.0 Sodium Potassium Chloride Carbon Dioxide Anion Gap BUN Creatinine Est GFR ( Amer) Est GFR (Non-Af Amer) POC Glucose (mg/dL) 107 Random Glucose Calcium Phosphorus Magnesium Iron TIBC % Saturation Ferritin Total Bilirubin AST ALT Alkaline Phosphatase Ammonia Total Protein Albumin Globulin Albumin/Globulin Ratio Triglycerides Cholesterol LDL Cholesterol Direct HDL Cholesterol Vitamin B12 Free T4 Thyroxine (T4) TSH 3rd Generation Urine Color Red Urine Clarity Cloudy Urine pH 5.0 Ur Specific [place] 1.020 Urine Protein >=500 Urine Glucose (UA) Neg Urine Ketones Trace Urine Blood Large Urine Nitrate Negative Urine Bilirubin Negative Urine Urobilinogen 2.0 Ur Leukocyte Esterase Trace Urine RBC (Auto) 5554 H Urine Microscopic WBC 67 H Alcohol, Quantitative 01/08/18 01/08/18 01/08/18 07:59 07:59 08:06 WBC RBC Hgb Hct MCV MCH MCHC RDW Plt Count MPV Neut % (Auto) Lymph % (Auto) [place] % (Auto) Eos % (Auto) Baso % (Auto) Neut # (Auto) Lymph # (Auto) [place] # (Auto) Eos # (Auto) Baso # (Auto) Neutrophils % (Manual) Band Neutrophils % Lymphocytes % (Manual) Reactive Lymphs % Monocytes % (Manual) Toxic Granulation Platelet Estimate Poikilocytosis (manual Anisocytosis (manual) Microcytosis (manual) PT INR APTT Sodium Potassium Chloride Carbon Dioxide Anion Gap BUN Creatinine Est GFR ( Amer) Est GFR (Non-Af Amer) POC Glucose (mg/dL) Random Glucose Calcium Phosphorus Magnesium Iron 17 L TIBC 213 L % Saturation 8 L Ferritin 257.0 Total Bilirubin AST ALT Alkaline Phosphatase Ammonia Total Protein Albumin Globulin Albumin/Globulin Ratio Triglycerides 67 Cholesterol 96 LDL Cholesterol Direct 58 HDL Cholesterol 23 L Vitamin B12 578 Free T4 1.89 Thyroxine (T4) 7.90 TSH 3rd Generation 1.15 Urine Color Urine Clarity Urine pH Ur Specific [place] Urine Protein Urine Glucose (UA) Urine Ketones Urine Blood Urine Nitrate Urine Bilirubin Urine Urobilinogen Ur Leukocyte Esterase Urine RBC (Auto) Urine Microscopic WBC Alcohol, Quantitative Assessment & Plan - Assessment and Plan (Free Text) Assessment: 52 yo M with hx liver cirrhosis, bipolar d/o, CKD, alcohol abuse, anemia, seizure disorder admitted to inpatient psychiatric unit. Plan: - resume home meds - f/u ammonia level - nephro consult; pending dialysis - renal diet - psych management as per primary team <Jose Cruz Vila - Last Filed: 01/11/18 08:39> Meds - Medications Medications: Current Medications Acetaminophen (Tylenol 325mg Tab) 650 mg PO Q4 PRN PRN Reason: Pain, moderate (4-7) Last Admin: 01/11/18 00:52 Dose: 650 mg Al Hydrox/Mg Hydrox/Simethicone (Maalox Plus 30 Ml) 30 ml PO Q4 PRN PRN Reason: Dyspepsia Ascorbic Acid (Vitamin C 500 Mg Tab) 500 mg PO DAILY [facility] Last Admin: 01/10/18 08:42 Dose: 500 mg Bismuth Subsalicylate (Pepto-Bismol) 524 mg PO Q4 PRN PRN Reason: Diarrhea Calcium Acetate (Phoslo) 667 mg PO TID [facility] Last Admin: 01/10/18 16:26 Dose: 667 mg Carvedilol (Coreg) 12.5 mg PO Q12 [facility] Last Admin: 01/10/18 21:15 Dose: 12.5 mg Ferrous Sulfate (Feosol) 325 mg PO DAILY [facility] Last Admin: 01/10/18 08:41 Dose: 325 mg Folic Acid (Folic Acid) 1 mg PO DAILY [facility] Last Admin: 01/10/18 08:42 Dose: 1 mg Furosemide (Lasix) 40 mg PO DAILY [facility] Last Admin: 01/10/18 08:41 Dose: 40 mg Lactulose (Enulose) 20 gm PO BID [facility] Last Admin: 01/10/18 08:40 Dose: 20 gm Levetiracetam (Keppra) 750 mg PO Q12 [facility] Last Admin: 01/10/18 21:16 Dose: 750 mg Lorazepam (Ativan) 1 mg IM Q6 PRN PRN Reason: SEVERE AGITATION Lorazepam (Ativan) 0.5 mg PO TID PRN PRN Reason: ANXIETY/AGITATION Last Admin: 01/10/18 00:57 Dose: 0.5 mg Magnesium Hydroxide (Milk Of Magnesia) 30 ml PO HS PRN PRN Reason: Constipation Mirtazapine (Remeron) 15 mg PO HS [facility] Last Admin: 01/10/18 21:15 Dose: 15 mg Pantoprazole Sodium (Protonix Ec Tab) 40 mg PO DAILY [facility] Last Admin: 01/10/18 08:41 Dose: 40 mg Thiamine HCl (Vitamin B1 Tab) 100 mg PO DAILY [facility] Last Admin: 01/10/18 08:42 Dose: 100 mg Vitamin B Complex/Vit C/Folic Acid (Nephro-Yolie) 1 tab PO DAILY [facility] Last Admin: 01/10/18 08:42 Dose: 1 tab Results - Vital Signs Recent Vital Signs: Last Vital Signs Temp 98.3 F 01/11/18 05:11 Pulse 74 01/11/18 05:11 Resp 19 01/11/18 05:11 BP 145/82 01/11/18 05:11 Pulse Ox 99 01/10/18 21:21 - Labs Result Diagrams: 01/08/18 12:15 01/07/18 20:45 Assessment & Plan - Assessment and Plan (Free Text) Plan: Patient was personally seen and examined by me in rounds with residents. Available labs and diagnostic data reviewed. Case, Patient's condition and management plan discussed with residents in rounds. Agree with resident's progress note. Plan: As ordered.
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
[2018-01-08 12:18] LABS: HEMOGLOBIN 9.9 g/dL (12.0-18.0); MEAN CELL VOLUME 88.5 fl (80.0-94.0); MEAN CORPUSCULAR HEMOGLOBIN 28.5 pg (27.0-31.0); MEAN CORPUSCULAR HGB CONC 32.2 g/dL (33.0-37.0); RBC 3.46 Mil/uL (4.40-5.90); RED CELL DISTRIBUTION WIDTH 18.6 % (11.5-14.5); WHITE BLOOD COUNT 9.3 K/uL (4.8-10.8)
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
[2018-01-08 20:24] LABS: FOLATE > 20.0 ng/mL
[2018-01-09] MEDS: Multivitamin Vitamin B Complex (Nephro-Vite) Tab PO SCH (08:33)
[2018-01-09] MEDS: Pantoprazole 40 mg EC Tab PO SCH (08:33)
--- NOTE | 2018-01-09 12:28 | CP.PCM.PN ---
Subjective - Date & Time of Evaluation Date of Evaluation: 01/09/18 Time of Evaluation: 12:28 - Subjective Subjective: renal follow up note no events overnight exam vSS nad awake oriented X3 heent normal op moist no jvd [id number] no resp distress abd soft edema 2+ no rash plan ESRD/HTN/seizure/bipolar disease/anemia/edema hd usually mwf but not done yesterday hence will do today lytes reviewed anemia stable epo as needed bp ok monitor phos levels edema should improve with hd fluid removal Objective - Vital Signs/Intake and Output Vital Signs (last 24 hours): Temp Pulse Resp BP Pulse Ox 98 F 78 20 124/78 98 01/09/18 09:00 01/09/18 09:00 01/09/18 09:00 01/09/18 09:00 01/09/18 00:40 - Medications Medications: Current Medications Acetaminophen (Tylenol 325mg Tab) 650 mg PO Q4 PRN PRN Reason: Pain, moderate (4-7) Last Admin: 01/08/18 22:02 Dose: 650 mg Al Hydrox/Mg Hydrox/Simethicone (Maalox Plus 30 Ml) 30 ml PO Q4 PRN PRN Reason: Dyspepsia Ascorbic Acid (Vitamin C 500 Mg Tab) 500 mg PO DAILY COUNTS INCLUDE 234 BEDS AT THE [facility] Last Admin: 01/09/18 08:32 Dose: 500 mg Bismuth Subsalicylate (Pepto-Bismol) 524 mg PO Q4 PRN PRN Reason: Diarrhea Calcium Acetate (Phoslo) 667 mg PO TID COUNTS INCLUDE 234 BEDS AT THE [facility] Last Admin: 01/09/18 08:33 Dose: 667 mg Carvedilol (Coreg) 12.5 mg PO Q12 COUNTS INCLUDE 234 BEDS AT THE [facility] Last Admin: 01/09/18 08:33 Dose: 12.5 mg Ferrous Sulfate (Feosol) 325 mg PO DAILY COUNTS INCLUDE 234 BEDS AT THE [facility] Last Admin: 01/09/18 08:32 Dose: 325 mg Folic Acid (Folic Acid) 1 mg PO DAILY COUNTS INCLUDE 234 BEDS AT THE [facility] Last Admin: 01/09/18 08:32 Dose: 1 mg Furosemide (Lasix) 40 mg PO DAILY COUNTS INCLUDE 234 BEDS AT THE [facility] Last Admin: 01/09/18 08:32 Dose: 40 mg Lactulose (Enulose) 20 gm PO BID COUNTS INCLUDE 234 BEDS AT THE [facility] Last Admin: 01/09/18 08:33 Dose: 20 gm Levetiracetam (Keppra) 750 mg PO Q12 COUNTS INCLUDE 234 BEDS AT THE [facility] Last Admin: 01/09/18 08:32 Dose: 750 mg Lorazepam (Ativan) 1 mg IM Q6 PRN PRN Reason: SEVERE AGITATION Lorazepam (Ativan) 0.5 mg PO TID PRN PRN Reason: ANXIETY/AGITATION Last Admin: 01/09/18 08:51 Dose: 0.5 mg Magnesium Hydroxide (Milk Of Magnesia) 30 ml PO HS PRN PRN Reason: Constipation Pantoprazole Sodium (Protonix Ec Tab) 40 mg PO DAILY COUNTS INCLUDE 234 BEDS AT THE [facility] Last Admin: 01/09/18 08:33 Dose: 40 mg Thiamine HCl (Vitamin B1 Tab) 100 mg PO DAILY COUNTS INCLUDE 234 BEDS AT THE [facility] Last Admin: 01/09/18 08:34 Dose: 100 mg Vitamin B Complex/Vit C/Folic Acid (Nephro-Yolie) 1 tab PO DAILY COUNTS INCLUDE 234 BEDS AT THE [facility] Last Admin: 01/09/18 08:33 Dose: 1 tab - Labs Labs: 01/08/18 12:15 01/07/18 20:45 PT 14.0 Seconds (9.8-13.1) H 01/07/18 20:45 INR 1.3 01/07/18 20:45 APTT 34.0 Seconds (25.6-37.1) 01/07/18 20:45
--- NOTE | 2018-01-09 13:57 | PN ---
Copied To: Jose Cruz Vila MD Attending MD: Jose Cruz Vila MD DATE: 01/09/2018 SUBJECTIVE: The patient is seen and examined. Interim events noted. Psychiatry evaluation noted and appreciated. The patient remains in geropsych unit. Awake, responsive. Dialysis was not done yesterday but no chest pain or shortness of breath. PHYSICAL EXAMINATION: GENERAL: The patient is in no acute distress. VITAL SIGNS: Stable. HEART: S1 and S2. Normal and regular. LUNGS: Good bilateral air exchange. ABDOMEN: Soft, nontender. EXTREMITIES: No edema. No calf swelling. No tenderness. No acute ischemia. INTERNAL CONTROL MANAGER: Essentially unchanged. DIAGNOSTIC DATA: Available diagnostic data reviewed. Hemoglobin A1c is . ASSESSMENT AND PLAN: Overall, the patient's general medical condition is stable. Plan as ordered. Jose Cruz Vila MD
--- NOTE | 2018-01-09 14:08 | PCM.PYCHPN ---
Psychiatric Progress Note - Psychiatric Progress Note Patient seen today, length of contact: chart reviewed case discussed with team Patient Chief Complaint: pt anxious increased evening requested prn lorazepam, off unit today to have renal dialysis, appetite fair, staff provided redirection Problems Identified/Issues Discussed: alteration in mood, coping, renal function Medical Problems: per chart Diagnostic Results: per psychiatry per medicine/nephrology per social work per recreational therapy DSM 5 Symptoms Update: labile at times insomnia pt has elevated ammonia level-will forego depakote (was on previous admission) pending repeat ammonia level Medication Change: Yes (mirtazepine 7.5mg (pt w/renal impairment discussed with pharm) ) Medical Record Reviewed: Yes Consults ordered or reviewed: pt being followed by dr chadwick, dr lara Mental Status Examination - Cognitive Function Orientation: Person, Place, Situation, Time Memory: Intact Attention: WNL Concentration: WNL Association: WNL Fund of Knowledge: [facility] Decription of patient's judgement and insights: impaired - Affect Affect: Constricted - Homicidal Ideation Homicidal Ideation: No Goal/Treatment Plan - Goal/Treatment Plan Progress Toward Problem(s) and Goals/Treatment Plan: inpt milieu vital signs and clinical observation per protocol and per clinical status prns per unit protocol pt being followed by dr. chadwick and dr lara ( dialysis [id number]) case discussed with pharmacy mirtazepine with decreased clearance by 30% will start 7.5mg po hs (information reviewed with staff for assessment) repeat ammonia level previously elevated -will forego valproic acid (previous was receiving) pending results ammonia level discharge planning in progress Estimated Date of D/C: 01/14/18 - Smoking Cessation Smoking Cessation Initiated: No Reason for not providing: deferred
[2018-01-10 00:58] LABS: BARBITURATES, UR NEGATIVE (NEGATIVE); BENZODIAZEPINES, UR NEGATIVE (NEGATIVE); OPIATES, UR NEGATIVE (NEGATIVE); PHENCYCLIDINE, UR NEGATIVE (NEGATIVE)
[2018-01-10] MEDS: Pantoprazole 40 mg EC Tab PO SCH (08:41)
[2018-01-10] MEDS: Multivitamin Vitamin B Complex (Nephro-Vite) Tab PO SCH (08:42)
--- NOTE | 2018-01-10 19:30 | PCM.PYCHPN ---
Psychiatric Progress Note - Psychiatric Progress Note Patient seen today, length of contact: chart reviewed case discussed with team Patient Chief Complaint: received dialysis yesterday, pt reports sleep, staff report pt with less lability, ammonia level 84 (previously higher). Problems Identified/Issues Discussed: alteration in mood, coping, renal function improving ammonia level impaired sleeping Medical Problems: per chart improving ammonia levell Diagnostic Results: per psychiatry per medicine/nephrology per social work per recreational therapy DSM 5 Symptoms Update: less irritability per staff, decreased sleep, improving ammonia level Medication Change: Yes (increase mirtazepine to 15mg po hs) Medical Record Reviewed: Yes Consults ordered or reviewed: pt seen by dr chadwick Mental Status Examination - Cognitive Function Orientation: Person, Place, Situation, Time Memory: Intact Attention: WNL Concentration: WNL Association: WNL Fund of Knowledge: WN Decription of patient's judgement and insights: impaired - Affect Affect: Constricted - Speech Speech: Appropriate, Soft - Formal Thought Process Formal Thought Process: No Impairment - Homicidal Ideation Homicidal Ideation: No Goal/Treatment Plan - Goal/Treatment Plan Progress Toward Problem(s) and Goals/Treatment Plan: inpt milieu vital signs and clinical observation per protocol and per clinical status prns per unit protocol pt being followed by dr. chadwick and dr lara case discussed with pharmacy mirtazepine with decreased clearance by 30% will start 15mg po hs (information reviewed with staff for assessment)-pt due for dialysis in am-assess for possible s/s increased sedation, possible suicidal ideation, (possible s/s of mirtazepien s/e) repeat ammonia level previously elevated -team can consider valproic acid ( previous was receiving) pending results ammonia level discharge planning in progress Estimated Date of D/C: 01/14/18
--- NOTE | 2018-01-11 08:49 | PN ---
Copied To: Jose Cruz Vila MD Attending MD: Jose Cruz Vila MD DATE: 01/10/2018 SUBJECTIVE: The patient seen and examined. Interim events noted. Psychiatry followup and intervention noted and appreciated. Patient remains in geropsych unit, complains of occasional pain. Tylenol was given. The patient denies any other specific medical complaints. No chest pain. No shortness of breath. PHYSICAL EXAMINATION: GENERAL: The patient is in no acute distress. VITAL SIGNS: Stable. HEART: S1 and S2. Normal and regular. LUNGS: Good bilateral air exchange. ABDOMEN: Soft and nontender. EXTREMITIES: No edema. No calf swelling. No tenderness. No acute ischemia. STORE CUSTODIAN: Exam is essentially unchanged. DIAGNOSTIC DATA: Available diagnostic data reviewed. ASSESSMENT AND PLAN: Overall, the patient's general medical condition is stable. Plan as ordered. Jose Cruz Vila MD
--- NOTE | 2018-01-11 10:31 | PCM.PYCHPN ---
Psychiatric Progress Note - Psychiatric Progress Note Patient seen today, length of contact: Patient evaluated, case discussed with team, chart reviewed Patient Chief Complaint: "I'm tired." Problems Identified/Issues Discussed: Patient is irritable w/ rewriter, minimally cooperative with talking, and just answered that he is tired when asked questions. He is irritable w/ staff, but has not had any violence or aggression towards others. Medication Change: No Medical Record Reviewed: Yes Consults ordered or reviewed: Medicine consult Mental Status Examination - Cognitive Function Orientation: Person, Place, Situation, Time Memory: Intact Attention: WNL Concentration: WNL Association: WNL Fund of Knowledge: [facility] Decription of patient's judgement and insights: Poor I/J - Mood Mood: Depressed - Affect Affect: Constricted - Speech Speech: Appropriate, Soft - Formal Thought Process Formal Thought Process: No Impairment Psychotic Thoughts and Behaviors: NO AH/VH/paranoia/delusions - Suicidal Ideation Suicidal Ideation: No - Homicidal Ideation Homicidal Ideation: No Goal/Treatment Plan - Goal/Treatment Plan Need for Continued Stay: Remain at risks for inpatient hospitalization, Discharge may exacerbated symptoms Progress Toward Problem(s) and Goals/Treatment Plan: Major Depressive Disorder; r/o Mood Disorder vs Personality Disorder -Continue Remeron 15 mg PO HS -Individual and group therapy -Continued observation for safety -Medicine consult -Disposition planning Estimated Date of D/C: 01/14/18
[2018-01-11] MEDS: Multivitamin Vitamin B Complex (Nephro-Vite) Tab PO SCH (15:21)
[2018-01-11] MEDS: Pantoprazole 40 mg EC Tab PO SCH (15:24)
[2018-01-11 15:43] LABS: INR 1.3
--- NOTE | 2018-01-12 03:38 | PCM.RRT ---
<Jana Shetty - Last Filed: 01/12/18 04:19> I.Reason for TRAFFIC SURVEY TECHNICIAN - A) Acute Change in Patient: Subjective: TRAFFIC SURVEY TECHNICIAN Time: 00:20 AM TRAFFIC SURVEY TECHNICIAN Arrival time:00:21 AM TRAFFIC SURVEY TECHNICIAN Location: [facility] TRAFFIC SURVEY TECHNICIAN VS: BP 140/88, HR 72, O2Sat 98% on Oxigen 2L NC, RR18,BS 98. S: TRAFFIC SURVEY TECHNICIAN called by RN after patient c/o chest pain to the RN. The patient is 52 y/ o male with PMHx as per medical records review of Liver cirrhosis, alcohol abuse , seizures disorder, bipolar disorder, anemia and CKD currently on hemodialysis treatment on , patient states that he had Hd treatment today but it was not finished, though he is not clear the reason. Patient states he reported chest discomfort to the RN now, but he has had the chest discomfort since the morning, the pain is moderate, in the middle chest area, with no radiation, associated with some occasional SOB. O: GEN : patient appears with anxious mood, but NAD. HEENT: Normocephalic, EOMI. RESP: CTA bilateral CV: RRR, S1 S2 present, no gallops, no murmurs noted ABD: Mildly Distended, some collateral circulation noted, no tenderness to palpation noted LE: b/l Pedal Edema +2 Assessment 52 y/o male with PMHx of multiple comorbidities, with atypical chest pain symptoms. Impression: Atypical chest pain Plan and TRAFFIC SURVEY TECHNICIAN interventions: -Continue O2 2 L NC -EKG stat done -Troponin Enz Q6h x 3 -VS monitoring -Tyelnol 650 mg PO now TRAFFIC SURVEY TECHNICIAN End TIme: 00:41AM TRAFFIC SURVEY TECHNICIAN leader hospitalist Dr Cordova Residents: Dr Spivey, Dr Anderson <Penny Cordova - Last Filed: 01/12/18 07:11> TRAFFIC SURVEY TECHNICIAN Nurse Assessment - Vital Signs Vital Signs: Rapid Response Vital Sign Blood Pressure 138/77 Pulse Rate 73 Respiratory Rate 18 Oxygen Saturation 100 - Vital Signs at end of TRAFFIC SURVEY TECHNICIAN Vital Signs at end of TRAFFIC SURVEY TECHNICIAN: Rapid Response End Vital Sign Blood Pressure 142/79 Pulse Rate 71 Respiratory Rate 29 O2 Sat by Pulse Oximetry 100 Attending/Attestation - Attestation I have personally seen and examined this patient.: Yes I have fully participated in the care of the patient.: Yes I have reviewed all pertinent clinical information, including history, physical exam and plan: Yes Notes (Text): 01/12/18 07:11 SEEN EXAMINED AND DISCUSSED WITH RESIDENT DR. SPIVEY. AGREE WITH FINDINGS AND PLAN ABOVE.
--- NOTE | 2018-01-12 09:49 | PCM.PYCHPN ---
Psychiatric Progress Note - Psychiatric Progress Note Patient seen today, length of contact: Patient evaluated, case discussed with team, chart reviewed Patient Chief Complaint: "I'm tired." Problems Identified/Issues Discussed: Patient continues to have periods of irritability, but is not aggressive or violent towards others. He continues to report feeling depressed. Medication Change: No Medical Record Reviewed: Yes Consults ordered or reviewed: Medicine consult Mental Status Examination - Cognitive Function Orientation: Person, Place, Situation, Time Memory: Intact Attention: WNL Concentration: WNL Association: WNL Fund of Knowledge: WN Decription of patient's judgement and insights: Improving I/J - Mood Mood: Depressed - Affect Affect: Constricted - Speech Speech: Appropriate - Formal Thought Process Formal Thought Process: No Impairment Psychotic Thoughts and Behaviors: NO AH/VH/paranoia/delusions - Suicidal Ideation Suicidal Ideation: No - Homicidal Ideation Homicidal Ideation: No Goal/Treatment Plan - Goal/Treatment Plan Need for Continued Stay: Remain at risks for inpatient hospitalization, Discharge may exacerbated symptoms Progress Toward Problem(s) and Goals/Treatment Plan: Major Depressive Disorder; r/o Mood Disorder vs Personality Disorder -Continue Remeron 15 mg PO HS -Individual and group therapy -Continued observation for safety -Medicine consult -Disposition planning Estimated Date of D/C: 01/14/18
--- NOTE | 2018-01-12 11:59 | CARD ---
APPROVED REPORT Date of service: 01/12/2018 EKG Measurement Heart [id number] <Conclusion> Normal sinus rhythm prolonged QT abnormal ECG
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
[2018-01-12] MEDS ORDERED: Lidocaine 1% 5ml Abboject IV ONE ×2 (12:38→12:55)
[2018-01-12 12:55] VITALS: O2SAT 100
[2018-01-12] MEDS: Pantoprazole 40 mg EC Tab PO SCH (13:38)
[2018-01-12] MEDS: Multivitamin Vitamin B Complex (Nephro-Vite) Tab PO SCH (13:39)
--- NOTE | 2018-01-12 13:42 | VASCULAR ---
PROCEDURE: Date of procedure: 01/12/2018 Procedure: 1. Replacement of right IJ tunneled hemodialysis catheter, CPT 84045 Medications: 10cc 1 percent lidocaine Radiation: 2.18 mGy Fluoroscopy time: 20.4 second HISTORY: End-stage renal disease, nonfunctional left tunneled hemodialysis catheter TECHNIQUE: Following informed consent and procedure time-out, the patient was placed supine on the interventional table. The existing left IJ tunneled hemodialysis catheter surrounding skin were prepped and draped in the usual sterile fashion. Spot fluoroscopic image showed a left IJ catheter in place. The existing catheter was then removed over a guidewire exchange for a new hemodialysis catheter, 23 centimeter cuff to tip. The catheter's tip is confirmed with spot radiograph and is at the cava atrial junction. The catheter was tested and has adequate blood flow for dialysis. The catheter was flushed and locked with heparin per specified amount. The catheter secured to the skin with a 0 silk suture. IMPRESSION: Exchange of existing left IJ tunneled hemodialysis catheter for a new tunneled hemodialysis catheter. The catheter is 23 centimeter cuff -to tip. The catheter is functional and ready for use.
--- NOTE | 2018-01-13 08:44 | PCM.PYCHPN ---
Psychiatric Progress Note - Psychiatric Progress Note Patient seen today, length of contact: Patient evaluated, case discussed with team, chart reviewed Patient Chief Complaint: "I'm tired." Problems Identified/Issues Discussed: Patient calm and cooperative, less irritable w/ improved mood. No aggressive or violent behaviors towards others. Medication Change: No Medical Record Reviewed: Yes Consults ordered or reviewed: Medicine consult Mental Status Examination - Cognitive Function Orientation: Person, Place, Situation, Time Memory: Intact Attention: WNL Concentration: WNL Association: WNL Fund of Knowledge: [facility] Decription of patient's judgement and insights: Improving I/J - Mood Mood: Depressed - Affect Affect: Constricted - Speech Speech: Appropriate - Formal Thought Process Formal Thought Process: No Impairment Psychotic Thoughts and Behaviors: NO AH/VH/paranoia/delusions - Suicidal Ideation Suicidal Ideation: No - Homicidal Ideation Homicidal Ideation: No Goal/Treatment Plan - Goal/Treatment Plan Need for Continued Stay: Remain at risks for inpatient hospitalization, Discharge may exacerbated symptoms Progress Toward Problem(s) and Goals/Treatment Plan: Major Depressive Disorder; r/o Mood Disorder vs Personality Disorder -Continue Remeron 15 mg PO HS -Individual and group therapy -Continued observation for safety -Medicine consult -Disposition planning- patient is improving clinically, will likely discharge tomorrow Estimated Date of D/C: 01/14/18
[2018-01-13] MEDS: Multivitamin Vitamin B Complex (Nephro-Vite) Tab PO SCH (08:57)
[2018-01-13] MEDS: Pantoprazole 40 mg EC Tab PO SCH (08:59)
--- NOTE | 2018-01-13 09:17 | PN ---
Copied To: Jose Cruz Vila MD Attending MD: Jose Cruz Vila MD DATE: 01/12/2018 SUBJECTIVE: The patient is seen and examined. Interim events noted. Psychiatric followup and intervention noted and appreciated. Case was discussed with the psychiatrist. The patient is for possible discharge tomorrow. The patient feels okay. Denies any specific complaint. No chest pain. No shortness of breath. The patient had an episode of chest pain, but it was atypical. Troponin was negative. PHYSICAL EXAMINATION: GENERAL: The patient is in no acute distress. VITAL SIGNS: Stable. HEART: S1 and S2, normal and regular. LUNGS: Good bilateral air exchange. ABDOMEN: Soft, nontender. EXTREMITIES: No edema. No calf swelling. No tenderness. No acute ischemia. CENTRAL SUPPLY WORKER: Exam is essentially unchanged. DIAGNOSTIC DATA: Available diagnostic data reviewed. As mentioned earlier, troponin was negative. ASSESSMENT AND PLAN: Overall, the patient's general medical condition is stable. Plan as ordered. Jose Cruz Vila MD
--- NOTE | 2018-01-13 10:02 | CP.PCM.PN ---
Objective - Vital Signs/Intake and Output Vital Signs (last 24 hours): Temp Pulse Resp BP Pulse Ox 97.8 F 76 20 158/85 H 100 01/13/18 05:44 01/13/18 08:57 01/13/18 05:44 01/13/18 08:59 01/12/18 13:09 - Medications Medications: Current Medications Acetaminophen (Tylenol 325mg Tab) 650 mg PO Q4 PRN PRN Reason: Pain, moderate (4-7) Last Admin: 01/13/18 00:00 Dose: 650 mg Al Hydrox/Mg Hydrox/Simethicone (Maalox Plus 30 Ml) 30 ml PO Q4 PRN PRN Reason: Dyspepsia Ascorbic Acid (Vitamin C 500 Mg Tab) 500 mg PO DAILY [facility] Last Admin: 01/13/18 08:57 Dose: 500 mg Bismuth Subsalicylate (Pepto-Bismol) 524 mg PO Q4 PRN PRN Reason: Diarrhea Calcium Acetate (Phoslo) 667 mg PO TID [facility] Last Admin: 01/13/18 08:56 Dose: 667 mg Carvedilol (Coreg) 12.5 mg PO Q12 [facility] Last Admin: 01/13/18 08:57 Dose: 12.5 mg Ferrous Sulfate (Feosol) 325 mg PO DAILY [facility] Last Admin: 01/13/18 08:58 Dose: 325 mg Folic Acid (Folic Acid) 1 mg PO DAILY [facility] Last Admin: 01/13/18 08:57 Dose: 1 mg Furosemide (Lasix) 40 mg PO DAILY [facility] Last Admin: 01/13/18 08:59 Dose: 40 mg Lactulose (Enulose) 20 gm PO BID [facility] Last Admin: 01/13/18 08:55 Dose: 20 gm Levetiracetam (Keppra) 750 mg PO Q12 [facility] Last Admin: 01/13/18 08:57 Dose: 750 mg Lorazepam (Ativan) 1 mg IM Q6 PRN PRN Reason: SEVERE AGITATION Lorazepam (Ativan) 0.5 mg PO TID PRN PRN Reason: ANXIETY/AGITATION Last Admin: 01/13/18 09:04 Dose: 0.5 mg Magnesium Hydroxide (Milk Of Magnesia) 30 ml PO HS PRN PRN Reason: Constipation Mirtazapine (Remeron) 15 mg PO HS [facility] Last Admin: 01/12/18 21:48 Dose: 15 mg Pantoprazole Sodium (Protonix Ec Tab) 40 mg PO DAILY [facility] Last Admin: 01/13/18 08:59 Dose: 40 mg Thiamine HCl (Vitamin B1 Tab) 100 mg PO DAILY [facility] Last Admin: 01/13/18 08:57 Dose: 100 mg Vitamin B Complex/Vit C/Folic Acid (Nephro-Yolie) 1 tab PO DAILY [facility] Last Admin: 01/13/18 08:57 Dose: 1 tab - Labs Labs: 01/08/18 12:15 01/11/18 14:52 PT 14.0 Seconds (9.8-13.1) H 01/11/18 14:52 INR 1.3 01/11/18 14:52 APTT 34.0 Seconds (25.6-37.1) 01/07/18 20:45 Assessment and Plan (1) Chronic kidney disease with end stage renal failure on dialysis Status: Acute (2) Aggressive behavior Status: Acute (3) Alcohol abuse Status: Acute
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
--- NOTE | 2018-01-13 13:41 | PN ---
Copied To: Jose Cruz Vila MD Attending MD: Jose Cruz Vila MD DATE: 01/13/2018 SUBJECTIVE: The patient seen and examined. Interim events noted. Psychiatry followup and intervention noted and appreciated. The patient remains in geropsych unit. The patient feels okay. Denies any chest pain or shortness of breath. No specific medical complaint. No specific issue reported by nursing staff. PHYSICAL EXAMINATION: GENERAL: The patient is in no acute distress. VITAL SIGNS: Stable. Physical exam is essentially unchanged. DIAGNOSTIC DATA: Available diagnostic data reviewed. ASSESSMENT AND PLAN: Overall, the patient's general medical condition is stable. The patient is medically stable to be discharged. Plan as ordered. Case and plan discussed with the patient and Psychiatry. Jose Cruz Vila MD
--- NOTE | 2018-01-14 04:24 | CP.PCM.PCO ---
Progress Note - Review of Symptoms Events since last encounter: 52 YO M had complained of unwitnessed seizure like episode to the nurse. The marine underwriter was called down to come evaluate the patient. Patient is resting comfortably, states he remembers the event. He defecated during the seizure. States his muscles hurt currently. However denies any falls or trauma. Last time he had a seizure was couple months ago. Denies any biting of his tongue. He has been compliant with his medication. - Patient is a dialysis patient and last had his dialysis yesterday. - Denies any fatigue or postictal period Gen: NAD CVS: S1S2 no M/R/G Resp: CTAB no W/R/R Neuro: AAO x3, cranial nerves intact, motor and sensory intact Abd: NTND, soft A/P 1) H/O seizure's - Seizure could be secondary to hemodialysis secondary to hydrodynamic and biochemical changes. Will continue to monitor patient - C/W current treatment - CBC - CMP - CK
[2018-01-14 06:31] VITALS: PULSE 80
[2018-01-14 07:24] LABS: BASO # 0.1 K/uL (0.0-0.2); BASO % 1.1 % (0.0-2.0); EOS # 0.4 K/uL (0.0-0.7); EOS % 4.1 % (0.0-4.0); HEMOGLOBIN 9.2 g/dL (12.0-18.0); LYMPH # 1.6 K/uL (1.0-4.3); MEAN CELL VOLUME 88.4 fl (80.0-94.0); MEAN CORPUSCULAR HEMOGLOBIN 28.2 pg (27.0-31.0); MEAN CORPUSCULAR HGB CONC 31.9 g/dL (33.0-37.0); MEAN PLATELET VOLUME 10.6 fl (7.2-11.7); MONO % 27.1 % (0.0-10.0); NEUT # 5.8 K/uL (1.8-7.0); NEUT % 52.7 % (50.0-75.0); NRBC % 0.1 % (0.0-0.0); PLATELET COUNT 313 K/uL (130-400); RBC 3.28 Mil/uL (4.40-5.90); RED CELL DISTRIBUTION WIDTH 18.9 % (11.5-14.5); WHITE BLOOD COUNT 10.9 K/uL (4.8-10.8)
[2018-01-14 07:34] LABS: ALB/GLOB RATIO 0.8 (1.0-2.1); ALBUMIN 2.6 g/dL (3.5-5.0); ALT/SGPT 22 U/L (21-72); AST/SGOT 37 U/L (17-59); BLOOD UREA NITROGEN 25 mg/dl (9-20); CALCIUM 8.1 mg/dL (8.4-10.2); GFR AFRICAN-AMERICAN 30; GFR NON-AFRICAN AMERICAN 25
[2018-01-14] MEDS: Multivitamin Vitamin B Complex (Nephro-Vite) Tab PO SCH (08:51)
[2018-01-14] MEDS: Pantoprazole 40 mg EC Tab PO SCH (08:51)
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
[2018-01-14 12:10] LABS: BANDS 1 % (0-2); BASOPHIL 1 % (0-2); EOSINOPHIL 10 % (0-7); LYMPHOCYTE 14 % (20-50); METAMYELOCYTE 1 % (0-0); MONOCYTE 19 % (0-10); MYELOCYTE 1 % (0-0); NEUTROPHIL 53 % (42-75); PLATELET ESTIMATE NORMAL (NORMAL); TOTAL CELLS COUNTED 100
[2018-01-14 12:12] LABS: ACANTHOCYTES SLIGHT; ANISOCYTOSIS SLIGHT; BURR CELLS SLIGHT; GIANT PLATELETS PRESENT; HYPOCHROMIC SLIGHT; LARGE PLATELETS PRESENT; OVALOCYTES SLIGHT; POIKILOCYTOSIS SLIGHT; SCHISTOCYTES SLIGHT; TARGET CELLS SLIGHT; TEARDROP CELLS SLIGHT
[2018-01-14 14:37] VITALS: BP 134/82; RESP 20; TEMP 98.1
== END 2018-01-14 17:00 | DRG 885 ==
LOC: H.ER 19:10 → H.ERHOLD 21:23 → H.STEP 23:38 → H.MEDSURG1 01-12 21:03 → H.STEP 01-12 22:40
PROVIDERS: ADMIT Psychiatry & Neurology Psychiatry; ATTEND Psychiatry & Neurology Psychiatry
PROC: GZHZZZZ Group Psychotherapy (ICD-10-PCS; principal; 2018-01-07)
PROC: GZ58ZZZ Individual Psychotherapy, Cognitive-Behavioral (ICD-10-PCS; 2018-01-07)
PROC: 5A1D70Z Performance of Urinary Filtration, Intermittent, Less than 6 Hours Per Day (ICD-10-PCS; 2018-01-11)
PROC: 05HM33Z Insertion of Infusion Device into Right Internal Jugular Vein, Percutaneous Approach (ICD-10-PCS; 2018-01-12)
PROC: B543ZZA Ultrasonography of Right Jugular Veins, Guidance (ICD-10-PCS; 2018-01-12)
PROC: 5A1D70Z Performance of Urinary Filtration, Intermittent, Less than 6 Hours Per Day (ICD-10-PCS; 2018-01-13)
DX: F32.89 Other specified depressive episodes (principal); N18.6 End stage renal disease; I12.0 Hypertensive chronic kidney disease with stage 5 chronic kidney disease or end stage renal disease; K70.30 Alcoholic cirrhosis of liver without ascites; F10.20 Alcohol dependence, uncomplicated; D63.1 Anemia in chronic kidney disease; G40.909 Epilepsy, unspecified, not intractable, without status epilepticus; R07.89 Other chest pain; R31.29 Other microscopic hematuria; G47.00 Insomnia, unspecified; F41.9 Anxiety disorder, unspecified; K29.70 Gastritis, unspecified, without bleeding; Z99.2 Dependence on renal dialysis; Z90.81 Acquired absence of spleen

== ENCOUNTER 2018-01-15 02:05 | Emergency (ER) | payer MEDICARE, MEDICAID ==
[2018-01-15 02:07] VITALS: BMI 31.6
--- NOTE | 2018-01-15 03:17 | ED PDOC ---
HPI: General Adult Time Seen by Provider: 01/15/18 02:22 Chief Complaint (Nursing): Fever History Per: Patient History/Exam Limitations: no limitations Onset/Duration Of Symptoms: Hrs Additional Complaint(s): 52 yo M with hx liver cirrhosis, bipolar d/o, CKD, alcohol abuse, anemia, seizure disorder who was brought to the ER after calling the ambulance at [facility]. He states that he was not getting his medications at [facility] and was worried he was going to have a seizure. States he also has total body pain. Past Medical History Reviewed: Historical Data, Nursing Documentation Vital Signs: Last Vital Signs Temp 99.1 F 01/15/18 02:38 Pulse 82 01/15/18 02:17 Resp 18 01/15/18 02:17 BP 157/97 H 01/15/18 02:17 Pulse Ox 97 01/15/18 03:48 - Medical History PMH: Anemia, Anxiety, Bipolar Disorder, Gastritis, HTN, End Stage Renal Disease , Chronic Kidney Disease, Seizures (Reported but not witnessed) Denies: Diabetes, Hepatitis, HIV, Kidney Stones, Sexually Transmitted Disease - Surgical History Surgical History: Hernia Repair (b/l inguinal) - Family History Family History: States: Unknown Family Hx - Immunization History Hx Tetanus Toxoid Vaccination: No Hx Influenza Vaccination: No Hx Pneumococcal Vaccination: No - Home Medications Home Medications: Ambulatory Orders Medication Instructions Recorded Ascorbic Acid [Vitamin C 500 mg 500 mg PO DAILY 12/30/17 Tab] Calcium Acetate [Phoslo] 667 mg PO TID 12/30/17 Carvedilol [Coreg] 12.5 mg PO Q12 12/30/17 Ferrous Sulfate [Feosol] 325 mg PO DAILY 12/30/17 Furosemide [Lasix] 40 mg PO DAILY 12/30/17 Levetiracetam [Keppra] 750 mg PO Q12 12/30/17 Pantoprazole Sodium [Protonix] 40 mg PO DAILY 12/30/17 Thiamine HCl [Vitamin B-1] 100 mg PO DAILY 12/30/17 Vitamin B Complex/Vit C/Folic 1 tab PO DAILY 12/30/17 [Nephro-Yolie] oxyCODONE [oxyCODONE Immediate 5 mg PO Q6 PRN 12/30/17 Release Tab] Lactulose [Enulose] 20 gm PO BID udc 12/31/17 LORazepam [Ativan] 0.5 mg PO TID PRN tab 01/14/18 Mirtazapine [Remeron] 15 mg PO HS tab 01/14/18 - Allergies Allergies/Adverse Reactions: Allergies Allergy/AdvReac Type Severity Reaction Status Date / Time No Known Allergies Allergy Verified 01/07/18 19:18 Review of Systems ROS Statement: Except As Marked, All Systems Reviewed And Found Negative Constitutional: Negative for: Fever, Chills Cardiovascular: Negative for: Chest Pain, Palpitations Respiratory: Negative for: Shortness of Breath Gastrointestinal: Negative for: Nausea, Vomiting Physical Exam - Reviewed Nursing Documentation Reviewed: Yes Vital Signs Reviewed: Yes - Physical Exam Appears: Positive for: Well, Non-toxic, No Acute Distress Head Exam: Positive for: ATRAUMATIC, NORMAL INSPECTION, NORMOCEPHALIC Skin: Positive for: Normal Color, Warm, DRY Eye Exam: Positive for: EOMI, Normal appearance, PERRL ENT: Positive for: Normal ENT Inspection Neck: Positive for: Normal, Painless ROM Cardiovascular/Chest: Positive for: Regular Rate, Rhythm Respiratory: Positive for: CNT, Normal Breath Sounds Gastrointestinal/Abdominal: Positive for: Normal Exam, Soft, Distended. Negative for: Tenderness Back: Positive for: Normal Inspection Extremity: Positive for: Normal ROM Neurologic/Psych: Positive for: Alert, Oriented - Laboratory Results Result Diagrams: 01/15/18 03:27 01/15/18 03:27 - ECG O2 Sat by Pulse Oximetry: 97 Pulse Ox Interpretation: Normal Medical Decision Making Medical Decision MakinAM 52 yo M with hx liver cirrhosis, bipolar d/o, CKD, alcohol abuse, anemia, seizure disorder presenting to ER after calling 911 in [place] after not getting medications -will check for basic lab abnormalities -will give keppra -will observe for seizure activity in ED -patient currently at his baseline, normal vitals, afebrile 4AM -No seizure activity -Labs wnl -Will send back to [facility] Disposition - Clinical Impression Clinical Impression: Generalized muscle ache - Patient ED Disposition Is Patient to be Admitted: No - Disposition Referrals: Anaya Del Toro MD [Primary Care Provider] - Disposition: Rehab Facility/Unit ([facility]) Disposition Time: 04:15 Condition: STABLE Instructions: Chronic Pain (DC) Forms: [employer] (Dominican)
[2018-01-15 03:18] LABS: VENOUS BLOOD GAS BASE EXCESS 4.9 mmol/L (0.0-2.0); VENOUS BLOOD GAS PCO2 41 mmHg (40-60); VENOUS BLOOD GAS PO2 47 mm/Hg (30-55); VENOUS BLOOD PH 7.46 (7.32-7.43)
[2018-01-15 03:30] LABS: BASO # 0.1 K/uL (0.0-0.2); EOS # 0.4 K/uL (0.0-0.7); EOS % 3.6 % (0.0-4.0); HEMOGLOBIN 9.5 g/dL (12.0-18.0); LYMPH # 3.5 K/uL (1.0-4.3); LYMPH % 30.7 % (20.0-40.0); MEAN CELL VOLUME 87.3 fl (80.0-94.0); MEAN CORPUSCULAR HEMOGLOBIN 27.8 pg (27.0-31.0); MEAN CORPUSCULAR HGB CONC 31.9 g/dL (33.0-37.0); MEAN PLATELET VOLUME 10.3 fl (7.2-11.7); MONO # 2.6 K/uL (0.0-0.8); MONO % 22.7 % (0.0-10.0); NEUT # 4.8 K/uL (1.8-7.0); PLATELET COUNT 339 K/uL (130-400); RBC 3.41 Mil/uL (4.40-5.90); RED CELL DISTRIBUTION WIDTH 19.6 % (11.5-14.5); WHITE BLOOD COUNT 11.4 K/uL (4.8-10.8)
[2018-01-15] MEDS ORDERED: oxyCODONE 5 mg Immediate Release Tab PO STA (03:35)
[2018-01-15 03:39] LABS: CALCIUM 8.2 mg/dL (8.4-10.2)
[2018-01-15 04:30] VITALS: BP 140/88; PULSE 85; RESP 16; TEMP 98.7; O2SAT 96
[2018-01-15 05:05] LABS: LYMPHOCYTE 15 % (20-50); MONOCYTE 22 % (0-10); NEUTROPHIL 61 % (42-75); REACTIVE LYMPHOCYTES 2 % (0-0); TOTAL CELLS COUNTED 100
[2018-01-15 05:07] LABS: ANISOCYTOSIS MODERATE; HYPOCHROMIC SLIGHT; PLATELET ESTIMATE NORMAL (NORMAL); SCHISTOCYTES SLIGHT
[2018-01-15 05:08] LABS: ACANTHOCYTES SLIGHT
== END 2018-01-15 04:39 | disposition home or self-care (01) ==
LOC: H.ER 02:05
DX: M79.1 Myalgia (principal); R50.9 Fever, unspecified; G40.909 Epilepsy, unspecified, not intractable, without status epilepticus; D64.9 Anemia, unspecified; K74.60 Unspecified cirrhosis of liver; I12.0 Hypertensive chronic kidney disease with stage 5 chronic kidney disease or end stage renal disease

== ENCOUNTER 2018-02-27 01:40 | Emergency (ER) | payer MEDICARE, MEDICAID ==
[2018-02-27 01:40] VITALS: BMI 31.6
[2018-02-27 01:59] VITALS: PULSE 80; TEMP 97.9; O2SAT 98
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
[2018-02-27 04:51] VITALS: BP 130/88; RESP 22
== END 2018-02-27 04:14 ==
LOC: H.ER 01:40
DX: Z03.89 Encounter for observation for other suspected diseases and conditions ruled out (principal); Z86.59 Personal history of other mental and behavioral disorders; I12.0 Hypertensive chronic kidney disease with stage 5 chronic kidney disease or end stage renal disease; N18.6 End stage renal disease; Z00.8 Encounter for other general examination